=== PATIENT | female | born 1960 | race Caucasian/White ===

== ENCOUNTER 2017-12-06 15:45 | Inpatient (IN) ==
[2017-12-06] MEDS ORDERED: Sod Chloride 0.9% Inj 1,000 ML IV.SIG ONE (17:27)
--- NOTE | 2017-12-06 18:02 | CT ---
EXAM DATE: 12/06/2017 5:55 PM EDT AGE/SEX: 57 years / Female INDICATIONS: Diffuse abdomen pain with nausea and vomiting for five days. CLINICAL DATA: This is the patient's initial encounter. Patient reports that signs and symptoms have been present for 4 - 6 days and indicates a pain score of 7/10. MEDICAL/SURGICAL HISTORY: Carcinoma, breast. Hypertension. Hysterectomy. bladder surgery RADIATION DOSE: 6.84 CTDI (mGy) COMPARISON: [facility] [place], CT ABDOMEN & PELVIS W/O CONTRAST, 12/01/2017. . TECHNIQUE: Multiple contiguous axial images were obtained through the abdomen. Images were obtained using multiple row detector helical technique. Using automated exposure control and adjustment of the mA and/or kV according to patient size, radiation dose was kept as low as reasonably achievable to o btain optimal diagnostic quality images. DICOM format image data is available electronically for rev iew and comparison. FINDINGS: Free intraperitoneal air with ascites. There are scattered diverticuli in the sigmoid colon. There is a large collection of air mesentery in the pelvis. Most likely source is probably in the pelvis. Liver, spleen, pancreas and adrenals unremarkable. Right left kidneys unremarkable There is no adenopathy Pelvis again seen is a large collection of free air in the root of the mesentery. Multiple diverticul i are present in the sigmoid colon with acute diverticulitis. Bladder and adnexal regions are unremarkable. CONCLUSION: 1. Significant free intraperitoneal air collected under the diaphragm and in the root of mesentery. Most likely source is pelvis, root of the mesentery with associated diverticulitis Electronically signed by: Mandeep Espana MD 12/06/2017 6:01 PM EDT
[2017-12-06 18:03] LABS: Baso % (Auto) 0.5 % (0.0-2.0); Eos # (Auto) 0.1 th/mm3 (0.0-0.4); Eos % (Auto) 0.7 % (0.0-4.0); Hematocrit 41.8 % (35.0-46.0); Hemoglobin 13.8 gm/dL (11.6-15.3); Lymph % (Auto) 9.7 % (9.0-44.0); Mean Corpuscular HGB Conc 33.1 % (32.0-36.0); Mean Corpuscular Hemoglobin 28.5 pg (27.0-34.0); Mean Corpuscular Volume 86.1 fL (80.0-100.0); Mean Platelet Volume 7.7 fL (7.0-11.0); Mono # (Auto) 1.1 th/mm3 (0.0-0.9); Mono % (Auto) 10.3 % (0.0-8.0); Neut # (Auto) 8.5 th/mm3 (1.8-7.7); Neut % (Auto) 78.8 % (16.0-70.0); Platelet Count 280 th/mm3 (150-450); Red Blood Count 4.85 mil/mm3 (4.00-5.30); Red Cell Distribution Width 14.1 % (11.6-17.2); White Blood Count 10.8 th/mm3 (4.0-11.0)
--- NOTE | 2017-12-06 18:03 | ED ---
HPI General Chief complaint: Nausea/Vomiting/Diarrhea Stated complaint: Vomitting/abd pain Time Seen by Provider: 12/06/17 17:18 Source: patient and family Mode of arrival: ambulatory Limitations: no limitations History of Present Illness HPI Narrative: 57-year-old female that presents to the ED for evaluation of abdominal pain, nausea and vomit. Patient is known to me. I evaluated this patient on Thursday. On Thursday I diagnosed her with diverticulitis. Appeared to be mild. Patient was better with medications given in start antibiotics including Cipro and Flagyl. She was also given pain medications and antiemetics. Per patient she was doing fine until Thursday she started having more nausea and vomit. She has not been able to keep anything down since Thursday. She went to see her doctor who gave her Phenergan but she was not able able to keep this down. She has been having diarrhea. She states that she has had some abdominal pain. Per patient the pain is 7 out of 10. Per patient she is more concerned about the nausea and vomit. She cannot even keep any of her antibiotics for the past 2 days. Per patient her doctor also increased the Flagyl to 3 times a day. Related Data Previous Rx's Medication Instructions Recorded ciprofloxacin HCl [Cipro] 500 mg PO BID 14 Days #28 tab 12/01/17 metronidazole [Flagyl] 500 mg PO BID 14 Days #28 tab 12/01/17 ondansetron HCl [Zofran] 4 mg PO Q6H PRN #20 tab 12/01/17 Allergies Allergy/AdvReac Type Severity Reaction Status Date / Time Iodinated Contrast- Oral and Allergy Anaphylaxis Verified 12/01/17 11:27 IV Dye [Contrast] Review of Systems ROS Unobtainable All other systems reviewed negative except as stated in HPI [facility] Social History Social History Substance History: No History of Abuse Second Hand Smoke Exposure: No Smoking Status: Former smoker Tobacco Type: Cigarettes How Often Do You Have a Drink Containing Alcohol: Monthly or less Recent Travel in [facility] within the Last 8 Weeks: No Recent Out of Country Travel within the Last 8 Weeks: No Immunization History Tetanus Immunization: <5 Years Hx Influenza Vaccine This Season: Yes Exam Narrative Exam Narrative: GENERAL: Well-appearing SKIN: Focused skin assessment warm/dry. HEAD: Atraumatic. Normocephalic. EYES: Pupils equal and round. No scleral icterus. No injection or drainage. ENT: No nasal bleeding or discharge. Mucous membranes pink and moist. NECK: Trachea midline. No JVD. CARDIOVASCULAR: Regular rate and rhythm. No murmur appreciated. RESPIRATORY: No accessory muscle use. Clear to auscultation. Breath sounds equal bilaterally. GASTROINTESTINAL: Abdomen soft, very tender to touch in the lower abdomen, nondistended. Hepatic and splenic margins not palpable. MUSCULOSKELETAL: No obvious deformities. No clubbing. No cyanosis. No edema. Full range of motion of the upper and lower extremities bilaterally. 2+ pulses bilaterally. NEUROLOGICAL: Awake and alert. No obvious cranial nerve deficits. Motor grossly within normal limits. Normal speech. PSYCHIATRIC: Appropriate mood and affect; insight and judgment normal. Course Initial Documented Vital Signs Temperature 99.1 F 12/06/17 16:07 Pulse Rate 95 H 12/06/17 16:07 Respiratory Rate 17 12/06/17 16:07 Blood Pressure 146/61 H 12/06/17 16:07 Pulse Oximetry 96 12/06/17 16:07 Last Documented Vital Signs Temperature 99.1 F 12/06/17 16:07 Pulse Rate 102 H 12/06/17 17:27 Respiratory Rate 18 12/06/17 16:10 Blood Pressure 129/72 12/06/17 16:10 Pulse Oximetry 97 12/06/17 17:27 Medical Decision Making DOYLE Attestation DOYLE supervised visit: Yes Attestation: I, Dr. Johnson, have reviewed the advance practice practitioner's documentation and am in agreement, met with the patient face to face, made the diagnosis, and the medical decision making was done by me. *My assessment and Findings: Patient returns with worsening abdominal pain. Extensive workup was done. CT scan shows large collection of air consistent with perforation. Suspicion is perforated diverticulitis. Patient will be admitted and given IV antibiotics and general surgery has been consulted. MDM Narrative Medical decision making narrative: 57-year-old female that presents to the ED for evaluation of abdominal pain. Patient was properly examined and was found to have signs and symptoms concerning for acute abdominal pain. Patient was seen by me and is known by me from her previous admission. Labs and imaging show what appears to be perforated bowel. Her blood work does not show any white blood cell count elevation and her CMP appears to be intact. At this time case was discussed with Dr. Dowling who stated that he will come and evaluate the patient. He came and evaluated the patient and recommends IV antibiotics admission to medicine. This was ordered by me. Case discussed with Dr. Mcdowell who agrees to admission. My attending Dr. Smith was made aware of all findings and agrees with admission. Differential Diagnosis Differential Diagnosis: Perforated bowel versus diverticulitis versus abscess Medical Records Medical records reviewed: Yes I reviewed the patient's medical records. Lab Data Lab results reviewed: Yes I reviewed the patient's lab results. Result diagrams: 12/06/17 17:40 12/06/17 17:40 Lab Results 12/06/17 12/06/17 12/06/17 Range/Units 17:40 17:40 17:40 WBC 10.8 (4.0-11.0) th/mm3 RBC 4.85 (4.00-5.30) mil/mm3 Hgb 13.8 (11.6-15.3) gm/dL Hct 41.8 (35.0-46.0) % MCV 86.1 (80.0-100.0) fL MCH 28.5 (27.0-34.0) pg MCHC 33.1 (32.0-36.0) % RDW 14.1 (11.6-17.2) % Plt Count 280 D (150-450) th/mm3 MPV 7.7 (7.0-11.0) fL Prelim Diff (Auto) Slide review pending Neut % (Auto) 78.8 H (16.0-70.0) % Lymph % (Auto) 9.7 (9.0-44.0) % Morrow % (Auto) 10.3 H (0.0-8.0) % Eos % (Auto) 0.7 (0.0-4.0) % Baso % (Auto) 0.5 (0.0-2.0) % Neut # (Auto) 8.5 H (1.8-7.7) th/mm3 Lymph # (Auto) 1.0 (1.0-4.8) th/mm3 Morrow # (Auto) 1.1 H (0.0-0.9) th/mm3 Eos # (Auto) 0.1 (0.0-0.4) th/mm3 Baso # (Auto) 0.0 (0.0-0.2) th/mm3 WBC Differential . Diff Scan Auto diff confirmed Differential Comment . Sodium 138 (136-145) meq/L Potassium 3.8 (3.5-5.1) meq/L Chloride 100 (98-107) meq/L Carbon Dioxide 28.6 (21.0-32.0) meq/L Anion Gap 9 (5-15) meq/L BUN 19 H (7-18) mg/dL Creatinine 0.75 (0.50-1.00) mg/dL Estimated GFR 79 L (>89) mL/min Random Glucose 105 (74-106) mg/dL Lactic Acid 1.3 (0.4-2.0) mmol/L Calcium 9.1 (8.5-10.1) mg/dL Total Bilirubin 0.6 (0.2-1.0) mg/dL AST 14 L (15-37) U/L ALT 17 (10-53) U/L Alkaline Phosphatase 79 (45-117) U/L Total Protein 6.9 (6.4-8.2) g/dL Albumin 2.9 L (3.4-5.0) g/dL Blood Type Blood Type Recheck Antibody Screen 12/06/17 Range/Units 18:25 WBC (4.0-11.0) th/mm3 RBC (4.00-5.30) mil/mm3 Hgb (11.6-15.3) gm/dL Hct (35.0-46.0) % MCV (80.0-100.0) fL MCH (27.0-34.0) pg MCHC (32.0-36.0) % RDW (11.6-17.2) % Plt Count (150-450) th/mm3 MPV (7.0-11.0) fL Prelim Diff (Auto) Neut % (Auto) (16.0-70.0) % Lymph % (Auto) (9.0-44.0) % Morrow % (Auto) (0.0-8.0) % Eos % (Auto) (0.0-4.0) % Baso % (Auto) (0.0-2.0) % Neut # (Auto) (1.8-7.7) th/mm3 Lymph # (Auto) (1.0-4.8) th/mm3 Morrow # (Auto) (0.0-0.9) th/mm3 Eos # (Auto) (0.0-0.4) th/mm3 Baso # (Auto) (0.0-0.2) th/mm3 WBC Differential Diff Scan Differential Comment Sodium (136-145) meq/L Potassium (3.5-5.1) meq/L Chloride (98-107) meq/L Carbon Dioxide (21.0-32.0) meq/L Anion Gap (5-15) meq/L BUN (7-18) mg/dL Creatinine (0.50-1.00) mg/dL Estimated GFR (>89) mL/min Random Glucose (74-106) mg/dL Lactic Acid (0.4-2.0) mmol/L Calcium (8.5-10.1) mg/dL Total Bilirubin (0.2-1.0) mg/dL AST (15-37) U/L ALT (10-53) U/L Alkaline Phosphatase (45-117) U/L Total Protein (6.4-8.2) g/dL Albumin (3.4-5.0) g/dL Blood Type A Positive Blood Type Recheck Required Antibody Screen Negative Imaging Data Attestation: I personally reviewed and interpreted this imaging study as follows : Radiologist's impression: Abdomen/Pelvis CT 12/06/17 17:29 CONCLUSION: 1. Significant free intraperitoneal air collected under the diaphragm and in the root of mesentery. Most likely source is pelvis, root of the mesentery with associated diverticulitis Discharge Plan Discharge Disposition Patient Disposition: 30 Still Patient Discharge Details Diagnosis: Perforated bowel, Diverticulitis Physicians Team ED Provider: Chino Johnson ED Midlevel Provider: Phillip Angulo Primary Care Provider: UNKNOWN, Attending Provider: Ferny Salgado Other Providers: Tom Crystal Discharge Interventions Interventions: Vital Signs Last Done: 12/06/17 16:10 Status ED Status: Admitted Patient
[2017-12-06] MEDS ORDERED: Ampicillin/Sulbactam Inj 3 GM in Sodium Chloride 0.9% Inj 100 ML IV.SIG ONE (18:09)
[2017-12-06] MEDS ORDERED: HYDROmorphone PF Inj 2 MG/ML Vial IV.PUSH ONE (18:16)
[2017-12-06 18:22] LABS: Albumin 2.9 g/dL (3.4-5.0); Anion Gap 9 meq/L (5-15); Aspartate Aminotransferase 14 U/L (15-37); Blood Urea Nitrogen 19 mg/dL (7-18); Calcium 9.1 mg/dL (8.5-10.1); Carbon Dioxide 28.6 meq/L (21.0-32.0); Chloride 100 meq/L (98-107); Glomerular Filtration Rate 79 mL/min (>89); Glucose,Random 105 mg/dL (74-106); Potassium 3.8 meq/L (3.5-5.1); Sodium 138 meq/L (136-145)
[2017-12-06 18:23] LABS: Alanine Aminotransferase 17 U/L (10-53)
[2017-12-06 18:26] LABS: Alkaline Phosphatase 79 U/L (45-117); Total Protein 6.9 g/dL (6.4-8.2)
[2017-12-06] MEDS ORDERED: Piperacil/Tazo 3.375 GM Premix 50 ML IV.SIG ONE (20:12)
[2017-12-06] MEDS ORDERED: HYDROmorphone PF Inj 2 MG/ML Vial IV.PUSH PRN (20:35)
[2017-12-06] MEDS: Sod Chloride 0.9% Inj 1,000 ML IV.CONT SCH (22:55)
--- NOTE | 2017-12-06 23:24 | MB ---
cc: Tom Crystal MD DATE: 12/06/2017 DATE OF EVALUATION: 12/06/2017 HISTORY OF PRESENT ILLNESS: This is a 57-year-old female who presents to the emergency room with a 5-day history of abdominal pain. The patient states the pain started in her lower abdomen. She presented to [place] ER 5 days prior where evaluation revealed diverticulitis. She was started on oral antibiotics and sent home. She states that she was having difficulty keeping down antibiotics. On Thursday, symptoms worsened with emesis and she was unable to keep down fluids or medication. She presented back to the emergency room for reevaluation. On workup, noncontrasted CT of the abdomen and pelvis revealed ascites with free air. The patient states she has had a temperature of 101 day prior to presentation. She has been having liquid bowel movements. No chest pains or shortness of breath. She states the pain is better now. PAST MEDICAL HISTORY: Significant for hypertension. PAST SURGICAL HISTORY: 1. Significant for breast surgery. 2. Hysterectomy. 3. Bladder sling. MEDICATIONS: The patient is on medications for blood pressure. SOCIAL HISTORY: She does not smoke. FAMILY HISTORY: Noncontributory. REVIEW OF SYSTEMS: Significant for the above. All other 10-point review negative. PHYSICAL EXAMINATION: GENERAL: She is lying in bed in no acute distress. HEENT: Her pupils are equal and reactive. NECK: Trachea is midline. LUNGS: Clear. CARDIOVASCULAR: Regular. GASTROINTESTINAL: Abdomen soft, mild distention. EXTREMITIES: Positive tenderness in the lower abdomen, mild right lower and left lower quadrant. MUSCULOSKELETAL: No deformities. NEUROLOGIC: Nonfocal. LABORATORY DATA: The patient's white count is 10.8 with neutrophils of 78.8. CAT scan of abdomen and pelvis reviewed. ASSESSMENT: This is a patient with likely perforated diverticulitis. The patient is being admitted for IV antibiotics. The patient's symptoms appear to be localized. Will monitor closely. If patient deteriorates, she will require laparoscopy with a diverting ileostomy versus a laparotomy with sigmoid resection. This was explained to the patient and her family. Risks and benefits were explained. They verbalized understanding and agreed with the plan of care. Tom Crystal MD JLS/nia/david , 08:18 PM , 08:27 PM
[2017-12-07] MEDS: Piperacil/Tazo 3.375 GM Premix 50 ML IV.SIG SCH ×5 (04:59→21:31)
[2017-12-07 07:58] LABS: Baso % (Auto) 0.5 % (0.0-2.0); Eos # (Auto) 0.1 th/mm3 (0.0-0.4); Eos % (Auto) 1.2 % (0.0-4.0); Hemoglobin 12.7 gm/dL (11.6-15.3); Lymph # (Auto) 1.2 th/mm3 (1.0-4.8); Lymph % (Auto) 14.2 % (9.0-44.0); Mean Corpuscular HGB Conc 33.4 % (32.0-36.0); Mean Corpuscular Hemoglobin 29.1 pg (27.0-34.0); Mean Corpuscular Volume 87.2 fL (80.0-100.0); Mean Platelet Volume 7.5 fL (7.0-11.0); Mono # (Auto) 0.9 th/mm3 (0.0-0.9); Neut % (Auto) 73.1 % (16.0-70.0); Platelet Count 261 th/mm3 (150-450); Red Blood Count 4.36 mil/mm3 (4.00-5.30); Red Cell Distribution Width 14.3 % (11.6-17.2); White Blood Count 8.2 th/mm3 (4.0-11.0)
--- NOTE | 2017-12-07 08:17 | P.HPIM ---
History of Present Illness Primary Care Physician: Dr. Richie Clifton Chief Complaint: Nausea/vomiting, abd pain History of Present Illness: Mrs. bethea is a 57 y/o female with HTN, hx of breast cancer, and hx of melanoma. She presented to the ED at [facility] on 12/06/17 with a 5-day history of abdominal pain. The patient states that the pain started in her lower abdomen initially with associated vomiting. She presented to [place] ED on 12/01/[address] Abd/pelvis which revealed acute sigmoid diverticulitis, no perforation or abscess, and no obstruction. Pt was started on oral antibiotics with Cipro and Flagyl BID x 14 days and discharged to home. She states that she was having difficulty keeping down antibiotics. On Thursday, symptoms worsened and she had increased emesis and she was unable to keep down fluids or medication. She presented back to the emergency room on 12/06/17 for re-evaluation. In the ED she had a noncontrasted CT abd/pelvis which revealed significant free intraperitoneal air collected under the diaphragm and in the root of mesentery. The patient reported a fever of 101 on the day prior to presentation in the ED. She reports that she has been having liquid bowel movements. No chest pains or shortness of breath. Pt was started on Zosyn in the ED. General Surgery evaluated the pt in the ED last night and they are recommending continued supportive care and IV antibiotics and monitoring her clinical status closely. Past Medical Hx Diverticulitis Hypertension Hx of breast cancer in 2011, BRCA gene positive, s/p surgery and XRT, followed with Dr. Lanier and Dr. Wilson Hx of melanoma Past Surgical Hx Right breast partial mastectomy in 2011 Left breast lumpectomy in 2013 which was benign TREE with BSO Bladder sling Melanoma removal Family Hx Noncontributory Social Hx Denies any tobacco or illicit drug use Occasional social alcohol use - Diagnosis (1) Perforated bowel (2) Diverticulitis (3) HTN (hypertension) Inpatient Certification: I certify that the inpatient services were ordered in accordance with Medicare regulations governing the order. This includes certification that hospital inpatient services are reasonable and necessary and in the case of services not specified as inpatient-only under 42 CFR 419.22(n), that they are appropriately provided as inpatient services in accordance to with the 2-midnight benchmark under 43 CFR 412.3(e) Estimated Total Length of Stay (Days): 3 Plans for Post Hospital Care: Home Review of Systems All other systems reviewed negative except as stated in HPI Constitutional: Reports chills, Reports fever(s) Cardiovascular: Denies chest pain, Denies shortness of breath Gastrointestinal: Reports abdominal pain, Reports loose stools, Reports nausea, Reports vomiting PMFSH - History History Provided By: Patient - Medical History Medical History: Medical History (Last Reviewed 12/06/17 @ 17:25 by Devyn Buck) Arthritis History of breast cancer History of hysterectomy Hypertension Hypertriglyceridemia Melanoma - Surgical History Surgical History: Surgical History (Last Reviewed 12/06/17 @ 17:25 by Devyn Buck) History of bladder surgery - Tobacco History Second Hand Smoke Exposure: No Tobacco Use In Past 30 Days: No Smoking Status: Former smoker Tobacco Type: Cigarettes - Alcohol History How Often Do You Have a Drink Containing Alcohol: Monthly or less - Substance Use History Substance History: No History of Abuse - Travel History Recent Travel in the [place] Within the Last 8 Weeks: No Recent Travel Out of the Country Within the Last 8 Weeks: No - Immunization History Tetanus Immunization: Never Vaccinated Hx Influenza Vaccine This Season: Yes Medications and Allergies Allergies Allergy/AdvReac Type Severity Reaction Status Date / Time Iodinated Contrast- Oral and Allergy Anaphylaxis Verified 12/01/17 11:27 IV Dye [Contrast] Home Medications Medication Instructions Recorded Confirmed Type atenolol 50 mg PO DAILY 12/07/17 12/07/17 History hydrochlorothiazide 25 mg PO DAILY 12/07/17 12/07/17 History Active Medications: Active Medications Atenolol (Tenormin) 50 mg PO DAILY [facility] Piperacillin/Tazobactam/Dextrose (Zosyn 3.375 Gm Premix) 50 mls @ 100 mls/hr IV.SIG Q6H [facility] Last Infusion: 12/07/17 07:33 Dose: Infused Sodium Chloride (Ns Inj) 1,000 mls @ 84 mls/hr IV.CONT .[id number] [facility] Last Admin: 12/06/17 22:55 Dose: 84 mls/hr Ketorolac Tromethamine (Toradol Inj) 15 mg IV.PUSH Q6H PRN PRN Reason: PAIN SCALE 1 TO 10 Stop: 12/12/17 00:46 Ondansetron HCl (Zofran Odt) 4 mg PO Q4H PRN PRN Reason: NAUSEA OR VOMITING Last Admin: 12/07/17 02:50 Dose: 4 mg Exam Vital signs: Vital Signs 12/06/17 16:07 12/06/17 16:10 12/06/17 17:27 Temperature 99.1 F Pulse Rate 95 H 101 H 102 H Respiratory Rate 17 18 Blood Pressure 146/61 H 129/72 Pulse Oximetry 96 97 97 12/06/17 22:30 12/06/17 23:10 12/06/17 23:11 Temperature 97.9 F Pulse Rate 76 82 74 Respiratory Rate 15 16 Blood Pressure 128/58 L 127/62 Pulse Oximetry 94 L 12/07/17 00:11 12/07/17 04:00 Temperature 98 F Pulse Rate 78 76 Respiratory Rate 18 Blood Pressure 123/79 Pulse Oximetry 94 L Intake & Output 12/06/17 12/07/17 12/07/17 18:59 06:59 18:59 Intake Total 1250 / 1250 50 / 50 Balance 1250 / 1250 50 / 50 Weight 74.843 kg 74 kg Intake: IV 1250 / 1250 50 / 50 Unasyn Inj 3 GM In NS Inj 100 100 / 100 ML @ 200 mls/hr IV.SIG ONCE ONE Rx#:[id number] Zosyn 3.375 GM Premix 50 ML @ 50 / 50 50 / 50 100 mls/hr IV.SIG Q6H HATTIE Rx#: [id number] Flagyl 500 MG Inj 100 ML @ 100 100 / 100 mls/hr IV.SIG ONCE ONE Rx#: [id number] Other: # Voids 1 # Bowel Movements 0 Weight On Admission 74 kg Narrative: GENERAL: NAD, AAOx3 SKIN: Warm and dry. HEENT: Atraumatic. Normocephalic. Pupils equal and round. No scleral icterus. No injection or drainage. No nasal bleeding or discharge. Mucous membranes pink and moist. NECK: Trachea midline. No JVD. CARDIO: Regular RESP: No accessory muscle use. Clear to auscultation. Breath sounds equal bilaterally. ABD: Diminished BS, soft, distended, mild lower abdominal tenderness. EXT: Extremities without clubbing, cyanosis, or edema. No obvious deformities. NEURO: Awake and alert. No obvious cranial nerve deficits. Motor grossly within normal limits. Five out of 5 muscle strength in the arms and legs. Normal speech. PSYCH: Appropriate mood and affect; insight and judgment normal. Results - Labs CBC & Chem 7: 12/10/17 05:21 12/10/17 05:21 Labs: Short CBC 12/06/17 12/07/17 Range/Units 17:40 07:00 WBC 10.8 8.2 (4.0-11.0) th/mm3 Hgb 13.8 12.7 (11.6-15.3) gm/dL Hct 41.8 38.0 (35.0-46.0) % Plt Count 280 D 261 (150-450) th/mm3 BMP 12/06/17 17:40 Sodium 138 Potassium 3.8 Chloride 100 Carbon Dioxide 28.6 BUN 19 H Creatinine 0.75 Calcium 9.1 Liver Function 12/06/17 Range/Units 17:40 Total Bilirubin 0.6 (0.2-1.0) mg/dL AST 14 L (15-37) U/L ALT 17 (10-53) U/L Alkaline Phosphatase 79 (45-117) U/L Albumin 2.9 L (3.4-5.0) g/dL - Imaging Impressions Abdomen/Pelvis CT 12/06/17 17:29 CONCLUSION: 1. Significant free intraperitoneal air collected under the diaphragm and in the root of mesentery. Most likely source is pelvis, root of the mesentery with associated diverticulitis Caprini VTE Risk Assessment Caprini VTE Risk Assessment: Moderate/High Risk (score >= 2) Caprini Risk Assessment Model: Point Value = 1 Point Value = 2 Point Value = 3 Point Value = 5 Age 41-60 Minor surgery BMI > 25 kg/m2 Swollen legs Varicose veins or History of unexplained or recurrent spontaneous Oral contraceptives or hormone replacement Sepsis (< 1 month) Serious lung disease, including pneumonia (< 1 month) Abnormal pulmonary function Acute myocardial infarction Congestive heart failure (< 1 month) History of inflammatory bowel disease Medical patient at bed rest Age 61-74 Arthroscopic surgery Major open surgery (> 45 min) Laparoscopic surgery (> 45 min) Malignancy Confined to bed (> 72 hours) Immobilizing plaster cast Central venous access Age >= 75 History of VTE Family history of VTE Factor V Leiden Prothrombin [id number] Lupus anticoagulant Anticardiolipin antibodies Elevated serum homocysteine Heparin-induced thrombocytopenia Other congenital or acquired thrombophilia Stroke (< 1 month) Elective arthroplasty Hip, pelvis, or leg fracture Acute spinal cord injury (< 1 month) Prophylaxis Regimen: Total Risk Factor Score Risk Level Prophylaxis Regimen 0-1 Low Early ambulation 2 Moderate Order ONE of the following: *Sequential Compression Device (SCD) *Heparin 5000 units SQ BID 3-4 Higher Order ONE of the following medications: *Heparin 5000 units SQ TID *Enoxaparin/Lovenox 40 mg SQ daily (WT < 150 kg, CrCl > 30 mL/min) *Enoxaparin/Lovenox 30 mg SQ daily (WT < 150 kg, CrCl > 10-29 mL/min) *Enoxaparin/Lovenox 30 mg SQ BID (WT < 150 kg, CrCl > 30 mL/min) AND/OR *Sequential Compression Device (SCD) 5 or more Highest Order ONE of the following medications: *Heparin 5000 units SQ TID (Preferred with Epidurals) *Enoxaparin/Lovenox 40 mg SQ daily (WT < 150 kg, CrCl > 30 mL/min) *Enoxaparin/Lovenox 30 mg SQ daily (WT < 150 kg, CrCl > 10-29 mL/min) *Enoxaparin/Lovenox 30 mg SQ BID (WT < 150 kg, CrCl > 30 mL/min) AND *Sequential Compression Device (SCD) Assessment and Plan - Assessment (1) Perforated bowel Code(s): K63.1 - Perforation of intestine (nontraumatic) Status: Acute Plan: Perforated bowel Diverticulitis - Pt is a 57 y/o female with HTN, hx of breast cancer, and hx of melanoma. - She presented to the ED at [facility] on 12/06/17 with a 5-day history of abdominal pain, N/V. She initially presented to [place] ED on 12/01/[address] Abd/ pelvis which revealed acute sigmoid diverticulitis, no perforation or abscess, and no obstruction. Pt was started on oral antibiotics with Cipro and Flagyl BID x 14 days and discharged to home. She states that she was having difficulty keeping down antibiotics. On Thursday, symptoms worsened and she had increased emesis and she was unable to keep down fluids or medication. She presented back to the emergency room on 12/06/17 for re-evaluation. - Noncontrasted CT abd/pelvis (12/06) --> significant free intraperitoneal air collected under the diaphragm and in the root of mesentery. - Pt has had intermittent fevers and chills prior to admission. - Pt has been having liquid bowel movements. - Blood cultures drawn in the ED are pending. - Pt was started on Zosyn in the ED. - General Surgery evaluated the pt in the ED last night and they are recommending continued supportive care and IV antibiotics and monitoring her clinical status closely. - Zofran PRN and Reglan PRN - NPO - Cont. IVF - Supportive care HTN - Home meds continued, Atenolol - Vasotec PRN (2) Diverticulitis Code(s): K57.92 - Diverticulitis of intestine, part unspecified, without perforation or abscess without bleeding Status: Acute (3) HTN (hypertension) Code(s): I10 - Essential (primary) hypertension Status: Chronic - Attending Attestation Patient examined. Assessment and plan formulated with Debbi Lees PA-C. I agree with the above. H&P: Quality - VTE Deep Vein Thrombosis/Pulmonary Embolism Present on Admission: No
[2017-12-07 08:19] LABS: Anion Gap 9 meq/L (5-15); Blood Urea Nitrogen 18 mg/dL (7-18); Calcium 8.1 mg/dL (8.5-10.1); Carbon Dioxide 25.5 meq/L (21.0-32.0); Chloride 106 meq/L (98-107); Glomerular Filtration Rate Greater Than 89 mL/min (>89); Glucose,Random 93 mg/dL (74-106); Potassium 3.8 meq/L (3.5-5.1); Sodium 140 meq/L (136-145)
[2017-12-07 08:44] LABS: Eosinophils 2 % (0-4); Lymphocytes 10 % (9-44); Metamyelocytes 1 % (0-1); Monocytes 9 % (0-8)
[2017-12-07 08:46] LABS: Platelet Estimate Normal (Normal); Platelet Morphology Normal (Normal)
[2017-12-07] MEDS: Atenolol 50 MG Tablet PO SCH (08:46)
[2017-12-07] MEDS: Sod Chloride 0.9% Inj 1,000 ML IV.CONT SCH ×2 (08:48→18:02)
--- NOTE | 2017-12-07 12:18 | P.PNGS ---
<Mariela Carter - Last Filed: 12/07/17 12:15> Subjective Interval history: Felling better today Pain is less but complains of more nausea Not passing much gas Physical Exam Vital signs: Vital Signs 12/06/17 16:07 12/06/17 16:10 12/06/17 17:27 Temperature 99.1 F Pulse Rate 95 H 101 H 102 H Respiratory Rate 17 18 Blood Pressure 146/61 H 129/72 Pulse Oximetry 96 97 97 12/06/17 22:30 12/06/17 23:10 12/06/17 23:11 Temperature 97.9 F Pulse Rate 76 82 74 Respiratory Rate 15 16 Blood Pressure 128/58 L 127/62 Pulse Oximetry 94 L 12/07/17 00:11 12/07/17 04:00 12/07/17 08:00 Temperature 98 F 98.4 F Pulse Rate 78 76 75 Respiratory Rate 18 18 Blood Pressure 123/79 127/68 Pulse Oximetry 94 L 96 Intake & Output 12/06/17 12/07/17 12/07/17 18:59 06:59 18:59 Intake Total 1250 / 1250 1050 / 1050 Balance 1250 / 1250 1050 / 1050 Weight 74.843 kg 74 kg Intake: IV 1250 / 1250 1050 / 1050 NS Inj 1,000 ML @ 84 mls/hr IV. 1000 / 1000 CONT .[id number] [facility] Rx#:[id number] Unasyn Inj 3 GM In NS Inj 100 100 / 100 ML @ 200 mls/hr IV.SIG ONCE ONE Rx#:[id number] Zosyn 3.375 GM Premix 50 ML @ 50 / 50 50 / 50 100 mls/hr IV.SIG Q6H [facility] Rx#: [id number] Flagyl 500 MG Inj 100 ML @ 100 100 / 100 mls/hr IV.SIG ONCE ONE Rx#: [id number] Other: # Voids 1 # Bowel Movements 0 Weight On Admission 74 kg - Constitutional no acute distress - Routine Respiratory Exam Present: CTA bilaterally - Routine Cardiovascular Exam Present: RRR - Routine Abdominal Exam Present: tenderness (mild tenderness with palpation to LLQ) - Additional findings Additional findings: Laboratory Results - last 12 hr 12/07/17 12/07/17 07:00 07:00 WBC 8.2 RBC 4.36 Hgb 12.7 Hct 38.0 MCV 87.2 MCH 29.1 MCHC 33.4 RDW 14.3 Plt Count 261 MPV 7.5 Prelim Diff (Auto) Slide review pending Neut % (Auto) 73.1 H Lymph % (Auto) 14.2 [place] % (Auto) 11.0 H Eos % (Auto) 1.2 Baso % (Auto) 0.5 Neut # (Auto) 6.0 Lymph # (Auto) 1.2 [place] # (Auto) 0.9 Eos # (Auto) 0.1 Baso # (Auto) 0.0 WBC Differential Manual diff final Seg Neuts % (Manual) 62 Band Neuts % (Manual) 16 H Lymphocytes % (Manual) 10 Monocytes % (Manual) 9 H Eosinophils % (Manual) 2 Metamyelocytes % (Man) 1 Abs Neuts (Manual) 6.5 Differential Comment . Platelet Estimate Normal Platelet Morphology Normal Sodium 140 Potassium 3.8 Chloride 106 Carbon Dioxide 25.5 Anion Gap 9 BUN 18 Creatinine 0.52 Estimated GFR Greater than 89 Random Glucose 93 Calcium 8.1 L D Assessment and Plan - Assessment (1) Perforated bowel Code(s): K63.1 - Perforation of intestine (nontraumatic) Status: Acute - Plan Change Reglan to 10mg IVP Q6H for nausea Remain NPO for now Continue to monitor course Encourage ambulation Code Status: Full - Attending Attestation The exam, history, and the medical decision-making described in the above note were completed with the assistance of the mid-level provider. I reviewed and agree with the findings presented. I attest that I had a [id number] encounter with the patient on the same day, and personally performed and documented my assessment and findings in the medical record. <Tom Crystal - Last Filed: 12/25/17 08:36> Physical Exam - Urinary Catheter Management 1 Cath placed during this visit: yes Reason for continuing: Hourly intake/output Insertion date: 12/12/17 Assessment and Plan - Assessment (1) Diverticulitis Code(s): K57.92 - Diverticulitis of intestine, part unspecified, without perforation or abscess without bleeding Status: Acute - Plan Discharge Planning: The exam, history, and the medical decision-making described in the above note were completed with the assistance of the mid-level provider. I reviewed and agree with the findings presented. I attest that I had a [id number]-[id number] encounter with the patient on the same day, and personally performed and documented my assessment and findings in the medical record.
[2017-12-07] MEDS: Ketorolac Inj 30 MG/ML (IVP) Vial IV.PUSH PRN ×2 (12:53→18:57)
--- NOTE | 2017-12-07 22:03 | ECG ---
Date Performed: 12/06/2017 Time Performed: 19:29:08 PTAGE: 57 years EKG: Sinus rhythm NORMAL ECG NO PREVIOUS TRACING DOCTOR: Markus Jacob Interpretating Date/Time 12/07/2017 22:01:05
[2017-12-08] MEDS: Ketorolac Inj 30 MG/ML (IVP) Vial IV.PUSH PRN ×3 (01:07→16:27)
[2017-12-08] MEDS: Piperacil/Tazo 3.375 GM Premix 50 ML IV.SIG SCH ×4 (03:52→21:10)
[2017-12-08] MEDS: Sod Chloride 0.9% Inj 1,000 ML IV.CONT SCH ×2 (03:54→08:57)
[2017-12-08 05:16] LABS: Baso # (Auto) 0.1 th/mm3 (0.0-0.2); Baso % (Auto) 0.5 % (0.0-2.0); Eos # (Auto) 0.2 th/mm3 (0.0-0.4); Eos % (Auto) 1.6 % (0.0-4.0); Hematocrit 35.3 % (35.0-46.0); Hemoglobin 11.4 gm/dL (11.6-15.3); Lymph # (Auto) 1.4 th/mm3 (1.0-4.8); Lymph % (Auto) 12.2 % (9.0-44.0); Mean Corpuscular HGB Conc 32.3 % (32.0-36.0); Mean Corpuscular Volume 86.5 fL (80.0-100.0); Mean Platelet Volume 7.3 fL (7.0-11.0); Mono # (Auto) 1.4 th/mm3 (0.0-0.9); Mono % (Auto) 11.5 % (0.0-8.0); Neut # (Auto) 8.8 th/mm3 (1.8-7.7); Neut % (Auto) 74.2 % (16.0-70.0); Platelet Count 296 th/mm3 (150-450); Red Blood Count 4.09 mil/mm3 (4.00-5.30); White Blood Count 11.8 th/mm3 (4.0-11.0)
[2017-12-08 05:37] LABS: Anion Gap 12 meq/L (5-15); Blood Urea Nitrogen 21 mg/dL (7-18); Carbon Dioxide 22.5 meq/L (21.0-32.0); Chloride 107 meq/L (98-107); Glomerular Filtration Rate Greater Than 89 mL/min (>89); Glucose,Random 68 mg/dL (74-106); Potassium 3.5 meq/L (3.5-5.1); Sodium 141 meq/L (136-145)
[2017-12-08] MEDS: Atenolol 50 MG Tablet PO SCH (08:56)
--- NOTE | 2017-12-08 10:01 | P.PNIM ---
Subjective Interval history: Pt overall is feeling better today She passed gas overnight and has continued to have BMs, still dark colored liquid stools She has been afebrile Physical Exam Vital signs: Vital Signs 12/07/17 12:00 12/07/17 16:00 12/07/17 20:00 Temperature 98.2 F 98.6 F 97.7 F Pulse Rate 70 67 75 Respiratory Rate 18 18 18 Blood Pressure 123/69 136/64 139/65 Pulse Oximetry 95 95 97 12/08/17 00:32 12/08/17 08:00 Temperature 99.4 F 98.9 F Pulse Rate 68 84 Respiratory Rate 18 16 Blood Pressure 143/65 H 128/64 Pulse Oximetry 97 94 L Intake & Output 12/07/17 12/08/17 12/08/17 18:59 06:59 18:59 Intake Total 2100 / 2100 1200 / 1200 1000 / 1000 Balance 2100 / 2100 1200 / 1200 1000 / 1000 Weight 74 kg Intake: IV 2100 / 2100 1200 / 1200 1000 / 1000 NS Inj 1,000 ML @ 150 mls/hr IV 2000 / 2000 1000 / 1000 1000 / 1000 .CONT .Q6H40M [facility] Rx#:[id number] Zosyn 3.375 GM Premix 50 ML @ 100 / 100 200 / 200 100 mls/hr IV.SIG Q6H [facility] Rx#: [id number] Other: # Voids 4 3 Narrative: General: NAD, AAOx3 Chest: CTA Cardiac: Regular Abd: +BS, soft mildly distended, nontender Ext: No edema Results - Labs CBC & Chem 7: 12/10/17 05:21 12/10/17 05:21 Laboratory Results - last 24 hr 12/08/17 12/08/17 04:49 04:49 WBC 11.8 H RBC 4.09 Hgb 11.4 L Hct 35.3 MCV 86.5 MCH 28.0 MCHC 32.3 RDW 14.0 Plt Count 296 MPV 7.3 Neut % (Auto) 74.2 H Lymph % (Auto) 12.2 [place] % (Auto) 11.5 H Eos % (Auto) 1.6 Baso % (Auto) 0.5 Neut # (Auto) 8.8 H Lymph # (Auto) 1.4 [place] # (Auto) 1.4 H Eos # (Auto) 0.2 Baso # (Auto) 0.1 WBC Differential . Differential Comment Auto diff final Sodium 141 Potassium 3.5 Chloride 107 Carbon Dioxide 22.5 Anion Gap 12 BUN 21 H Creatinine 0.56 Estimated GFR Greater than 89 Random Glucose 68 L Calcium 8.0 L Microbiology 12/08/17 01:24 Stool Stool Occult Blood ([place]) - Final Hemoccult negative 12/06/17 17:40 Blood - Peripheral Aerobic Blood Culture - Preliminary No growth in 1 day 12/06/17 17:40 Blood - Peripheral Anaerobic Blood Culture - Preliminary No growth in 1 day 12/06/17 17:48 Blood - Peripheral Aerobic Blood Culture - Preliminary No growth in 1 day 12/06/17 17:48 Blood - Peripheral Anaerobic Blood Culture - Preliminary No growth in 1 day - Imaging Abdomen/Pelvis CT 12/06/17 17:29 CONCLUSION: 1. Significant free intraperitoneal air collected under the diaphragm and in the root of mesentery. Most likely source is pelvis, root of the mesentery with associated diverticulitis Assessment and Plan - Assessment (1) Perforated bowel Code(s): K63.1 - Perforation of intestine (nontraumatic) Status: Acute Plan: Perforated bowel Diverticulitis - Pt is a 57 y/o female with HTN, hx of breast cancer, and hx of melanoma. - She presented to the ED at [facility] on 12/06/17 with a 5-day history of abdominal pain, N/V. She initially presented to [place] ED on 12/01/[address] Abd/ pelvis which revealed acute sigmoid diverticulitis, no perforation or abscess, and no obstruction. Pt was started on oral antibiotics with Cipro and Flagyl BID x 14 days and discharged to home. She states that she was having difficulty keeping down antibiotics. On Thursday, symptoms worsened and she had increased emesis and she was unable to keep down fluids or medication. She presented back to the emergency room on 12/06/17 for re-evaluation. - Noncontrasted CT abd/pelvis (12/06) --> significant free intraperitoneal air collected under the diaphragm and in the root of mesentery. - Pt has had intermittent fevers and chills prior to admission. - Pt has been having liquid bowel movements, Hemoccult negative. - Blood cultures (12/06) with NGTD - Pt was started on Zosyn in the ED and this was continued. - General Surgery evaluated the pt in the ED last night and they are recommending continued supportive care and IV antibiotics and monitoring her clinical status closely. - Zofran PRN and Reglan PRN - Change IVF to D5W with KCL @ 100ml/hr - Pt clinically improving today - Encourage ambulation - NPO - Supportive care HTN - Home meds continued, Atenolol - Vasotec PRN (2) Diverticulitis Code(s): K57.92 - Diverticulitis of intestine, part unspecified, without perforation or abscess without bleeding Status: Acute (3) HTN (hypertension) Code(s): I10 - Essential (primary) hypertension Status: Chronic - Attending Attestation Patient examined. Assessment and plan formulated with Debbi Lees PA-C. I agree with the above.
[2017-12-08] MEDS: KCL 10 mEq/D5W/NaCl 0.45% Inj 1,000 ML IV.CONT SCH (13:10)
--- NOTE | 2017-12-08 15:20 | P.PNGS ---
Subjective Interval history: Clinically improving +flatus, +BM though dark colored Pain improving WBC increased to 11.4 Physical Exam Vital signs: Vital Signs 12/07/17 16:00 12/07/17 20:00 12/08/17 00:32 Temperature 98.6 F 97.7 F 99.4 F Pulse Rate 67 75 68 Respiratory Rate 18 18 18 Blood Pressure 136/64 139/65 143/65 H Pulse Oximetry 95 97 97 12/08/17 08:00 12/08/17 12:00 Temperature 98.9 F 97.9 F Pulse Rate 84 73 Respiratory Rate 16 17 Blood Pressure 128/64 134/59 L Pulse Oximetry 94 L 95 Intake & Output 12/07/17 12/08/17 12/08/17 18:59 06:59 18:59 Intake Total 2099 1200 / 1200 2049 Balance 2099 / 2099 1200 / 1200 2049 Weight 74 kg Intake: IV 2099 / 2099 1200 / 1200 2049 NS Inj 1,000 ML @ 150 mls/hr IV 1999 / 1999 1000 / 1000 2000 / 1999 .CONT .Q6H40M [facility] Rx#:[id number] Zosyn 3.375 GM Premix 50 ML @ 100 / 100 200 / 200 50 / 50 100 mls/hr IV.SIG Q6H [facility] Rx#: [id number] Other: # Voids 4 3 Narrative: Laboratory Results - last 24 hr 12/08/17 12/08/17 04:49 04:49 WBC 11.8 H RBC 4.09 Hgb 11.4 L Hct 35.3 MCV 86.5 MCH 28.0 MCHC 32.3 RDW 14.0 Plt Count 296 MPV 7.3 Neut % (Auto) 74.2 H Lymph % (Auto) 12.2 [place] % (Auto) 11.5 H Eos % (Auto) 1.6 Baso % (Auto) 0.5 Neut # (Auto) 8.8 H Lymph # (Auto) 1.4 [place] # (Auto) 1.4 H Eos # (Auto) 0.2 Baso # (Auto) 0.1 WBC Differential . Differential Comment Auto diff final Sodium 141 Potassium 3.5 Chloride 107 Carbon Dioxide 22.5 Anion Gap 12 BUN 21 H Creatinine 0.56 Estimated GFR Greater than 89 Random Glucose 68 L Calcium 8.0 L - Constitutional no acute distress - Routine Respiratory Exam Present: CTA bilaterally - Routine Cardiovascular Exam Present: RRR - Routine Abdominal Exam Present: soft (decreasing distension) Assessment and Plan - Assessment (1) Perforated bowel Code(s): K63.1 - Perforation of intestine (nontraumatic) Status: Acute - Plan Repeat labs in AM, if WBC increasing will get CT Abd/Pelvis with contrast. Patient will need to pre-medicated [address] Keep NPO for now, ok for ice chips Discussed Condition With: Patient - Attending Attestation The exam, history, and the medical decision-making described in the above note were completed with the assistance of the mid-level provider. I reviewed and agree with the findings presented. I attest that I had a [id number] encounter with the patient on the same day, and personally performed and documented my assessment and findings in the medical record.
[2017-12-09] MEDS: Ketorolac Inj 30 MG/ML (IVP) Vial IV.PUSH PRN ×2 (00:33→21:14)
[2017-12-09] MEDS: Piperacil/Tazo 3.375 GM Premix 50 ML IV.SIG SCH ×4 (04:09→21:14)
[2017-12-09] MEDS: KCL 10 mEq/D5W/NaCl 0.45% Inj 1,000 ML IV.CONT SCH ×3 (04:09→18:12)
[2017-12-09 08:49] LABS: Baso # (Auto) 0.1 th/mm3 (0.0-0.2); Baso % (Auto) 0.5 % (0.0-2.0); Eos # (Auto) 0.2 th/mm3 (0.0-0.4); Eos % (Auto) 1.2 % (0.0-4.0); Hematocrit 33.3 % (35.0-46.0); Hemoglobin 10.9 gm/dL (11.6-15.3); Lymph # (Auto) 1.1 th/mm3 (1.0-4.8); Lymph % (Auto) 8.9 % (9.0-44.0); Mean Corpuscular HGB Conc 32.9 % (32.0-36.0); Mean Corpuscular Hemoglobin 28.4 pg (27.0-34.0); Mean Corpuscular Volume 86.3 fL (80.0-100.0); Mean Platelet Volume 7.3 fL (7.0-11.0); Mono # (Auto) 1.1 th/mm3 (0.0-0.9); Neut # (Auto) 10.1 th/mm3 (1.8-7.7); Neut % (Auto) 80.4 % (16.0-70.0); Platelet Count 283 th/mm3 (150-450); Red Blood Count 3.86 mil/mm3 (4.00-5.30); Red Cell Distribution Width 13.9 % (11.6-17.2); White Blood Count 12.6 th/mm3 (4.0-11.0)
[2017-12-09 09:20] LABS: Anion Gap 8 meq/L (5-15); Blood Urea Nitrogen 15 mg/dL (7-18); Calcium 7.9 mg/dL (8.5-10.1); Carbon Dioxide 25.8 meq/L (21.0-32.0); Chloride 105 meq/L (98-107); Glomerular Filtration Rate Greater Than 89 mL/min (>89); Glucose,Random 119 mg/dL (74-106); Potassium 3.3 meq/L (3.5-5.1); Sodium 139 meq/L (136-145)
[2017-12-09] MEDS: Atenolol 50 MG Tablet PO SCH (09:30)
[2017-12-09] MEDS ORDERED: Hydrocortisone Sod Succinate 250 MG Vial IV.PUSH ONE (11:00)
[2017-12-09] MEDS ORDERED: [UNRECOGNIZED DRUG - OTHER] TOPICAL ONE (11:45)
[2017-12-09] MEDS ORDERED: Diatrizoate Meglum/Diatrizoate Sod Liq 9 ML UDC PO ONE (12:00)
--- NOTE | 2017-12-09 12:00 | P.PNIM ---
Subjective Interval history: Follow up: Perforated diverticulum, and HTN Patient reports lack of energy BLE nonpitting edema, patient reports that her BLE are often swollen and today they look, "pretty good." WBC increased to 12.6 today patient's 24 hour T max 100.[address] abd/pelvis with possible abscess drainage today with IR Physical Exam Vital signs: Vital Signs 12/08/17 12:00 12/08/17 16:00 12/08/17 20:34 Temperature 97.9 F 98.4 F 100.5 F H Pulse Rate 73 75 73 Respiratory Rate 17 18 18 Blood Pressure 134/59 L 142/64 H 118/71 Pulse Oximetry 95 97 98 12/09/17 00:37 12/09/17 04:13 12/09/17 08:00 Temperature 100.8 F H 98.7 F 99.1 F Pulse Rate 82 63 69 Respiratory Rate 18 17 17 Blood Pressure 127/59 L 130/62 110/61 Pulse Oximetry 98 97 95 Intake & Output 12/08/17 12/09/17 12/09/17 18:59 06:59 18:59 Intake Total 2200 / 2200 1100 / 1100 50 / 50 Balance 2200 / 2200 1100 / 1100 50 / 50 Weight 74 kg Intake: IV 2100 / 2100 1100 / 1100 50 / 50 D5W/1/2NS + KCL 10 mEq Inj 1, 1000 / 1000 000 ML @ 100 mls/hr IV.CONT . Q10H [facility] Rx#:[id number] NS Inj 1,000 ML @ 150 mls/hr IV 1999 / 1999 .CONT .Q6H40M [facility] Rx#:[id number] Zosyn 3.375 GM Premix 50 ML @ 100 / 100 100 / 100 50 / 50 100 mls/hr IV.SIG Q6H [facility] Rx#: [id number] Oral 100 / 100 Other: # Voids 4 3 # Bowel Movements 1 Narrative: General: NAD, AAOx3 Chest: CTA Cardiac: Regular Abd: +BS, soft mildly distended, nontender Ext: nonpitting BLE edema Results - Labs CBC & Chem 7: 12/10/17 05:21 12/10/17 05:21 Laboratory Results - last 24 hr 12/09/17 12/09/17 07:31 07:31 WBC 12.6 H RBC 3.86 L Hgb 10.9 L Hct 33.3 L MCV 86.3 MCH 28.4 MCHC 32.9 RDW 13.9 Plt Count 283 MPV 7.3 Neut % (Auto) 80.4 H Lymph % (Auto) 8.9 L [place] % (Auto) 9.0 H Eos % (Auto) 1.2 Baso % (Auto) 0.5 Neut # (Auto) 10.1 H Lymph # (Auto) 1.1 [place] # (Auto) 1.1 H Eos # (Auto) 0.2 Baso # (Auto) 0.1 WBC Differential . Differential Comment Auto diff final Sodium 139 Potassium 3.3 L Chloride 105 Carbon Dioxide 25.8 Anion Gap 8 BUN 15 Creatinine 0.58 Estimated GFR Greater than 89 Random Glucose 119 H Calcium 7.9 L Microbiology 12/06/17 17:40 Blood - Peripheral Aerobic Blood Culture - Preliminary No growth in 3 days 12/06/17 17:40 Blood - Peripheral Anaerobic Blood Culture - Preliminary No growth in 3 days 12/06/17 17:48 Blood - Peripheral Aerobic Blood Culture - Preliminary No growth in 3 days 12/06/17 17:48 Blood - Peripheral Anaerobic Blood Culture - Preliminary No growth in 3 days Assessment and Plan - Assessment (1) Perforated bowel Code(s): K63.1 - Perforation of intestine (nontraumatic) Status: Acute Plan: Perforated bowel Diverticulitis - Pt is a 57 y/o female with HTN, hx of breast cancer, and hx of melanoma. - She presented to the ED at [facility] [place] on 12/06/17 with a 5-day history of abdominal pain, N/V. She initially presented to [place] ED on 12/01/[address] Abd/ pelvis which revealed acute sigmoid diverticulitis, no perforation or abscess, and no obstruction. Pt was started on oral antibiotics with Cipro and Flagyl BID x 14 days and discharged to home. She states that she was having difficulty keeping down antibiotics. On Thursday, symptoms worsened and she had increased emesis and she was unable to keep down fluids or medication. She presented back to the emergency room on 12/06/17 for re-evaluation. - Noncontrasted CT abd/pelvis (12/06) --> significant free intraperitoneal air collected under the diaphragm and in the root of mesentery. - Pt has had intermittent fevers and chills prior to admission. - Pt has been having liquid bowel movements, Hemoccult negative. - Blood cultures (12/06) with NGTD - Pt was started on Zosyn in the ED and this was continued. - General Surgery evaluated the pt in the ED last night and they are recommending continued supportive care and IV antibiotics and monitoring her clinical status closely. - Zofran PRN and Reglan PRN - Change IVF to D5W with KCL - 12/09 WBC increased to 12.6 and 24 huor T max 100.8 - Plan for CT abd/pelvis with possible abscess drainage today with IR - Encourage ambulation - NPO - Supportive care HTN - Home meds continued, Atenolol - Vasotec PRN Hypokalemia potassium 3.3 today replaced BLE edema - BLE nonpitting edema, patient reports that her BLE are often swollen and today they look, "pretty good." - cardiac echocardiogram ordered DVT prophylaxis with SCDs (2) Diverticulitis Code(s): K57.92 - Diverticulitis of intestine, part unspecified, without perforation or abscess without bleeding Status: Acute (3) HTN (hypertension) Code(s): I10 - Essential (primary) hypertension Status: Chronic - Attending Attestation Patient examined. Assessment and plan formulated with Sara Henry PA-C. John agree with the above.
[2017-12-09 12:09] LABS: INR 1.2 Ratio
--- NOTE | 2017-12-09 12:39 | P.PNGS ---
Subjective Interval history: Wbc increased to 12.6 Low grade temp overnight C/O some nausea Physical Exam Vital signs: Vital Signs 12/08/17 16:00 12/08/17 20:34 12/09/17 00:37 Temperature 98.4 F 100.5 F H 100.8 F H Pulse Rate 75 73 82 Respiratory Rate 18 18 18 Blood Pressure 142/64 H 118/71 127/59 L Pulse Oximetry 97 98 98 12/09/17 04:13 12/09/17 08:00 Temperature 98.7 F 99.1 F Pulse Rate 63 69 Respiratory Rate 17 17 Blood Pressure 130/62 110/61 Pulse Oximetry 97 95 Intake & Output 12/08/17 12/09/17 12/09/17 18:59 06:59 18:59 Intake Total 2200 / 2200 1100 / 1100 50 / 50 Balance 2200 / 2200 1100 / 1100 50 / 50 Weight 74 kg Intake: IV 2100 / 2100 1100 / 1100 50 / 50 D5W/1/2NS + KCL 10 mEq Inj 1, 1000 / 1000 000 ML @ 100 mls/hr IV.CONT . Q10H [facility] Rx#:[id number] NS Inj 1,000 ML @ 150 mls/hr IV 1999 / 1999 .CONT .Q6H40M [facility] Rx#:[id number] Zosyn 3.375 GM Premix 50 ML @ 100 / 100 100 / 100 50 / 50 100 mls/hr IV.SIG Q6H [facility] Rx#: [id number] Oral 100 / 100 Other: # Voids 4 3 # Bowel Movements 1 Narrative: GENERAL: This is a well-nourished, well-developed patient, in no apparent distress. RESPIRATORY: Clear to auscultation. Breath sounds equal bilaterally. No wheezes , rales, or rhonchi. GASTROINTESTINAL: soft, non tended with mild distention but improved from yesterday, having BM's - Additional findings Additional findings: Laboratory Results - last 24 hr 12/09/17 12/09/17 12/09/17 07:31 07:31 11:47 WBC 12.6 H RBC 3.86 L Hgb 10.9 L Hct 33.3 L MCV 86.3 MCH 28.4 MCHC 32.9 RDW 13.9 Plt Count 283 MPV 7.3 Neut % (Auto) 80.4 H Lymph % (Auto) 8.9 L [place] % (Auto) 9.0 H Eos % (Auto) 1.2 Baso % (Auto) 0.5 Neut # (Auto) 10.1 H Lymph # (Auto) 1.1 [place] # (Auto) 1.1 H Eos # (Auto) 0.2 Baso # (Auto) 0.1 WBC Differential . Differential Comment Auto diff final PT 12.0 H INR 1.2 Sodium 139 Potassium 3.3 L Chloride 105 Carbon Dioxide 25.8 Anion Gap 8 BUN 15 Creatinine 0.58 Estimated GFR Greater than 89 Random Glucose 119 H Calcium 7.9 L Assessment and Plan - Assessment (1) Perforated bowel Code(s): K63.1 - Perforation of intestine (nontraumatic) Status: Acute - Plan CT abdomen/pelvis with IV and Oral contrast, protocol in place for contrast allergy. If abscess is present would appreciate IR to drain. Continued management will depend on results of CT Code Status: Full Discharge Planning: Depending on hospital course - Attending Attestation The exam, history, and the medical decision-making described in the above note were completed with the assistance of the mid-level provider. I reviewed and agree with the findings presented. I attest that I had a byks-co-zodo encounter with the patient on the same day, and personally performed and documented my assessment and findings in the medical record.
[2017-12-09] MEDS ORDERED: Lidocaine 1%/Epinephrine 1:100,000 Inj 20 ML Vial ONE (14:14)
[2017-12-09] MEDS ORDERED: fentaNYL Citrate Inj 250 MCG/5 ML Ampul ONE (15:12)
--- NOTE | 2017-12-09 15:36 | P.RAD ---
Post CT Procedure Prog Note - Pre Procedure Diagnosis (1) Perforated bowel - Post Procedure Diagnosis (1) Perforated bowel - Procedure Information Procedure Date: 12/09/17 Supervising Radiologist: Kieran Kam MD Anesthesia: Conscious Sedation - Plan of Activity Patient to Unit: Nursing Unit Patient condition: Good See PACS Report for procedural detail/treatment. Drainage Procedure CT right Abscess Drainage Placement Ukrainian Tube Size: 10 Drainage: Suction Fluid Removal (CCs): 20 Fluid Description: Cloudy, Yellow
--- NOTE | 2017-12-09 16:16 | CT ---
EXAM DATE: 12/09/2017 4:13 PM EDT AGE/SEX: 57 years / Female INDICATIONS: Abdominal abscess. CLINICAL DATA: This is the patient's initial encounter. Patient reports that signs and symptoms have been present for 1 day and indicates a pain score of 0/10. MEDICAL/SURGICAL HISTORY: Hypertension. Carcinoma, breast. Diverticulitis. perforated bowel Hysterectomy. bladder surgery COMPARISON: No prior exams available for comparison. BIOPSY SITE: abdominal abscess MEDICATION(S): 150mcg fentanyl (Sublimaze) IV DEVICE(S): 10 Fr [place] FLUID: Total volume of 5 of clear, red fluid was removed. Fluid was sent to lab for ordered studies.. . . PROCEDURE : CT guided drainage of the abdominal abscess. The risks, benefits and alternatives to the procedure were explained and verbal and written consent w as obtained. Using automated exposure control and adjustment of the mA and/or kV according to patient size, radiation dose was kept as low as reasonably achievable to obtain optimal diagnostic quality i mages. The site was prepped in sterile fashion. Full sterile technique was used, including cap, ma sk, sterile gloves and gown and a large sterile sheet. Hand hygiene and 2% chlorhexidine and/or beta dine/alcohol prep was utilized per protocol for cutaneous antisepsis. The skin and subcutaneous tiss ues were infiltrated with local anesthetic solution. DICOM format image data is available electronic ally for review and comparison. Using CT guidance the prescribed site was localized. Drainage was performed using the prescribed cat heter. The patient tolerated the procedure well and there were no complications. The patient tolerated the procedure well and there were no complications. The patient was sent to post anesthesia recovery in s table condition. FINDINGS: 20 cc of yellowish cloudy fluid was removed and business center representative specimen was sent to the lab. CONCLUSION: 1. Uncomplicated CT guided drainage. Electronically signed by: Kieran Kam MD 12/09/2017 4:15 PM EDT
--- NOTE | 2017-12-09 16:24 | CT ---
EXAM DATE: 12/09/2017 4:05 PM EDT AGE/SEX: 57 years / Female INDICATIONS: Abdominal abscess. CLINICAL DATA: This is the patient's subsequent encounter. Patient reports that signs and symptoms h ave been present for 2 days and indicates a pain score of 5/10. MEDICAL/SURGICAL HISTORY: Carcinoma, breast. Hypertension. Diverticulitis. perforated bowel Hysterectomy. Bladder surgery ORAL CONTRAST: No oral contrast ingested. RADIATION DOSE: 14.58 CTDI (mGy) COMPARISON: [facility] [place]OM[place] & PELVIS W/O CONTRAST, 12/06/2017. . TECHNIQUE: Multiple contiguous axial images were obtained through the abdomen and pelvis following b olus infusion of 69 ml Omnipaque 350 (iohexol) nonionic water-soluble contrast as a single exam dos e. No oral contrast ingested. Using automated exposure control and adjustment of the mA and/or kV ac cording to patient size, radiation dose was kept as low as reasonably achievable to obtain optimal di agnostic quality images. DICOM format image data is available electronically for review and comparis on. FINDINGS: A small left sided effusion is present. There is subsegmental atelectasis in the both bases. The live r and spleen are normal in size and no focal defects are identified. There is a trace amount of flui d over the dome of the liver. The gallbladder and pancreas are unremarkable. No intrahepatic or extr ahepatic ductal dilatation is seen. The adrenal glands and kidneys appear normal bilaterally. No hydr onephrosis or mass lesions are identified. There is mesenteric edema with abnormal thickening of the loops of small bowel in the right lower quadrant. There is also a developing abscess at the root of the mesentery measuring approximately 6 cm x 4 cm with an air-fluid level though this is not accessib le to percutaneous drainage. CT scan of the pelvis demonstrates findings of diverticulitis with a small amount of extraluminal gas . There is a 5 cm fluid collection superior to the dome of the bladder which is successful to percuta neous drainage. This contains fluid and gas. The bladder appears normal. No wall thickening or intral uminal masses are identified. CONCLUSION: Findings of abscess related to diverticulitis superior to the dome of the bladder. This is accessible to drainage. Developing fluid collection and abscess at the root of mesentery not accessible to percutaneous drain age Findings of small bowel ileus with wall thickening characteristic of inflammatory or infectious proce ss. Electronically signed by: Kieran Kam MD 12/09/2017 4:22 PM EDT
[2017-12-10] MEDS: KCL 10 mEq/D5W/NaCl 0.45% Inj 1,000 ML IV.CONT SCH ×3 (05:42→16:06)
[2017-12-10] MEDS: Piperacil/Tazo 3.375 GM Premix 50 ML IV.SIG SCH ×4 (05:42→22:36)
[2017-12-10 06:23] LABS: Baso % (Auto) 0.2 % (0.0-2.0); Eos # (Auto) 0.1 th/mm3 (0.0-0.4); Eos % (Auto) 1.1 % (0.0-4.0); Hematocrit 31.8 % (35.0-46.0); Hemoglobin 10.4 gm/dL (11.6-15.3); Lymph # (Auto) 1.9 th/mm3 (1.0-4.8); Lymph % (Auto) 15.6 % (9.0-44.0); Mean Corpuscular HGB Conc 32.6 % (32.0-36.0); Mean Corpuscular Volume 85.9 fL (80.0-100.0); Mean Platelet Volume 7.4 fL (7.0-11.0); Mono # (Auto) 1.1 th/mm3 (0.0-0.9); Mono % (Auto) 9.3 % (0.0-8.0); Neut # (Auto) 8.8 th/mm3 (1.8-7.7); Neut % (Auto) 73.8 % (16.0-70.0); Platelet Count 280 th/mm3 (150-450); Red Cell Distribution Width 14.1 % (11.6-17.2)
[2017-12-10 06:37] LABS: Anion Gap 7 meq/L (5-15); Blood Urea Nitrogen 11 mg/dL (7-18); Calcium 8.2 mg/dL (8.5-10.1); Carbon Dioxide 28.6 meq/L (21.0-32.0); Chloride 107 meq/L (98-107); Glomerular Filtration Rate Greater Than 89 mL/min (>89); Glucose,Random 84 mg/dL (74-106); Potassium 3.7 meq/L (3.5-5.1); Sodium 143 meq/L (136-145)
[2017-12-10 07:53] LABS: Lymphocytes 20 % (9-44); Monocytes 8 % (0-8); Myelocytes 2 % (0-0); Platelet Estimate Normal (Normal); Platelet Morphology Normal (Normal)
[2017-12-10 07:54] LABS: RBC Morphology Normal (Normal)
[2017-12-10] MEDS: Atenolol 50 MG Tablet PO SCH (08:43)
[2017-12-10] MEDS: Ketorolac Inj 30 MG/ML (IVP) Vial IV.PUSH PRN (09:35)
--- NOTE | 2017-12-10 12:59 | P.PNIM ---
Subjective Interval history: Pt's pain is controlled. Pt denies n/v. Physical Exam Vital signs: 12/10/17 08:00 12/10/17 11:10 Temperature 98.5 F Pulse Rate 65 Respiratory Rate 18 17 Blood Pressure 136/59 L Pulse Oximetry 95 Narrative: General: NAD, AAOx3 Chest: CTA Cardiac: Regular Abd: +BS, soft mildly distended, nontender - abscess drainage tube in place with less than 50ml in bulb, which is unchanged for current shift Ext: nonpitting BLE edema Results - Labs CBC & Chem 7: 12/10/17 05:21 12/10/17 05:21 12/06/17 17:40 Blood - Peripheral Aerobic Blood Culture - Preliminary No growth in 4 days 12/06/17 17:40 Blood - Peripheral Anaerobic Blood Culture - Preliminary No growth in 4 days 12/06/17 17:48 Blood - Peripheral Aerobic Blood Culture - Preliminary No growth in 4 days 12/06/17 17:48 Blood - Peripheral Anaerobic Blood Culture - Preliminary No growth in 4 days 12/09/17 15:30 Fluid - Peritoneal fluid Gram Stain - Final - Imaging Impressions Abdomen/Pelvis CT 12/09/17 00:00 CONCLUSION: Findings of abscess related to diverticulitis superior to the dome of the bladder. This is accessible to drainage. Developing fluid collection and abscess at the root of mesentery not accessible to percutaneous drainage Findings of small bowel ileus with wall thickening characteristic of inflammatory or infectious process. Abscess Drainage CT 12/09/17 00:00 CONCLUSION: 1. Uncomplicated CT guided drainage. Assessment and Plan - Assessment (1) Perforated bowel Code(s): K63.1 - Perforation of intestine (nontraumatic) Status: Acute Plan: Perforated bowel Diverticulitis - comgmt with General Surgery and Interventional Radiology - Pt is a 57 y/o female with HTN, hx of breast cancer, and hx of melanoma. - [place] [facility] [place] with a 5-day history of abdominal pain, N/V. She initially presented to [facility] ED on 12/01/[address] Abd/ pelvis which revealed acute sigmoid diverticulitis, no perforation or abscess, and no obstruction. Pt was started on oral antibiotics with Cipro and Flagyl BID x 14 days and discharged to home. She states that she was having difficulty keeping down antibiotics. On Thursday, symptoms worsened and she had increased emesis and she was unable to keep down fluids or medication. She presented back to the emergency room on 12/06/17 for re-evaluation. - Noncontrasted CT abd/pelvis (12/06) --> significant free intraperitoneal air collected under the diaphragm and in the root of mesentery. - Pt has had intermittent fevers and chills prior to admission. - Pt has been having liquid bowel movements, Hemoccult negative. - Blood cultures (12/06) with NGTD - Zosyn (12/07 - present) - Zofran PRN/ Reglan PRN - D51/2ND D5W with KCL - Afebrile since 12AM 12/09, WBC 12K (12/10) - CT a/p (12/09) - Findings of abscess related to diverticulitis superior to the dome of the bladder. This is accessible to drainage. - Developing fluid collection and abscess at the root of mesentery not accessible to percutaneous drainage - Findings of small bowel ileus with wall thickening characteristic of inflammatory or infectious process. - Pt underwent CT guided abscess drainage by IR (12/09) with removal of 20cc yellow cloudy fluid with specimen sent to the lab - Encourage ambulation - NPO - Supportive care HTN - Home meds continued, Atenolol - Vasotec PRN Hypokalemia -resolved BLE edema - BLE nonpitting edema, patient reports that her BLE are often swollen and they currently look, "pretty good." - cardiac echocardiogram --> pending DVT prophylaxis with SCDs (2) Diverticulitis Code(s): K57.92 - Diverticulitis of intestine, part unspecified, without perforation or abscess without bleeding Status: Acute (3) HTN (hypertension) Code(s): I10 - Essential (primary) hypertension Status: Chronic
--- NOTE | 2017-12-10 16:09 | P.PNGS ---
Subjective Interval history: Feeling better Nausea and pain controlled + BM and flatus WBC stable Physical Exam Vital signs: Vital Signs 12/09/17 20:00 12/10/17 00:00 12/10/17 08:00 Temperature 98.4 F 99.3 F 98.5 F Pulse Rate 65 55 L 65 Respiratory Rate 16 16 18 Blood Pressure 129/59 L 120/60 136/59 L Pulse Oximetry 94 L 95 95 12/10/17 11:10 12/10/17 12:00 12/10/17 16:00 Temperature 98.0 F 98.7 F Pulse Rate 65 74 Respiratory Rate 17 18 19 Blood Pressure 127/62 135/60 Pulse Oximetry 95 96 Intake & Output 12/09/17 12/10/17 12/10/17 18:59 06:59 18:59 Intake Total 1850 / 1850 1100 / 1100 Output Total 0 / 0 Balance 1850 / 1850 1100 / 1100 Intake: IV 1100 / 1100 1100 / 1100 D5W/1/2NS + KCL 10 mEq Inj 1, 1000 / 1000 1000 / 1000 000 ML @ 100 mls/hr IV.CONT . Q10H HATTIE Rx#:[id number] Zosyn 3.375 GM Premix 50 ML @ 100 / 100 100 / 100 100 mls/hr IV.SIG Q6H HATTIE Rx#: [id number] Oral 750 / 750 Output: Wound Drainage 0 / 0 Abdomen 0 / 0 Other: # Voids 6 2 Date of Last Bowel Movement 12/10/17 # Bowel Movements 4 Narrative: GENERAL: This is a well-nourished, well-developed patient RESPIRATORY: unlabored GASTROINTESTINAL: Abdomen soft, non-tender, accordion drain with scant amount of yellow drainage MUSCULOSKELETAL: Extremities without clubbing, cyanosis, or edema. NEURO: Alert & Oriented x4 to person, place, time, situation. Moves all ext x4 - Additional findings Additional findings: Impressions Abdomen/Pelvis CT 12/09/17 00:00 CONCLUSION: Findings of abscess related to diverticulitis superior to the dome of the bladder. This is accessible to drainage. Developing fluid collection and abscess at the root of mesentery not accessible to percutaneous drainage Findings of small bowel ileus with wall thickening characteristic of inflammatory or infectious process. Abscess Drainage CT 12/09/17 00:00 CONCLUSION: 1. Uncomplicated CT guided drainage. Laboratory Results - last 12 hr 12/10/17 12/10/17 05:21 05:21 WBC 12.0 H RBC 3.70 L Hgb 10.4 L Hct 31.8 L MCV 85.9 MCH 28.0 MCHC 32.6 RDW 14.1 Plt Count 280 MPV 7.4 Prelim Diff (Auto) Slide review pending Neut % (Auto) 73.8 H Lymph % (Auto) 15.6 Dent % (Auto) 9.3 H Eos % (Auto) 1.1 Baso % (Auto) 0.2 Neut # (Auto) 8.8 H Lymph # (Auto) 1.9 Dent # (Auto) 1.1 H Eos # (Auto) 0.1 Baso # (Auto) 0.0 WBC Differential Manual diff final Seg Neuts % (Manual) 63 Band Neuts % (Manual) 7 H Lymphocytes % (Manual) 20 Monocytes % (Manual) 8 Myelocytes % (Man) 2 H Abs Neuts (Manual) 8.6 H Differential Comment . Platelet Estimate Normal Platelet Morphology Normal RBC Morphology Normal Sodium 143 Potassium 3.7 Chloride 107 Carbon Dioxide 28.6 Anion Gap 7 BUN 11 Creatinine 0.64 Estimated GFR Greater than 89 Random Glucose 84 Calcium 8.2 L Assessment and Plan - Assessment (1) Perforated bowel Code(s): K63.1 - Perforation of intestine (nontraumatic) Status: Acute - Plan One area of drainage was safely accessed and drained, awaiting culture, there is another collection that was able to be reached. Will monitor CBC and continue with IV antibiotics Ok for clears, if tolerated can increase to full liquids tomorrow CBC, BMP in AM Discharge Planning: Depending on hospital course - Attending Attestation The exam, history, and the medical decision-making described in the above note were completed with the assistance of the mid-level provider. I reviewed and agree with the findings presented. I attest that I had a [id number] encounter with the patient on the same day, and personally performed and documented my assessment and findings in the medical record.
--- NOTE | 2017-12-10 19:18 | ECHRPT ---
Indication: Heart failure, unspecified CONCLUSIONS Normal left ventricular size and wall thickness. The left ventricular systolic function is normal wi th an estimated ejection fraction in the range of 60-65%. Left ventricular diastolic function parameters a re normal. [id number] mitral valve regurgitation. BP: / HR: Rhythm: Sinus MEASUREMENTS (Male / Female) Normal Values Technical Quality:Good 2D ECHO LV Diastolic Diameter PLAX 4.6 cm 4.2 - 5.9 / 3.9 - 5.3 cm LV Systolic Diameter PLAX 3.0 cm IVS Diastolic Thickness 0.9 cm 0.6 - 1.0 / 0.6 - 0.9 cm LVPW Diastolic Thickness 0.8 cm 0.6 - 1.0 / 0.6 - 0.9 cm LV Relative Wall Thickness 0.4 LVOT Diameter 1.8 cm M-MODE Aortic Root Diameter MM 2.5 cm LA Systolic Diameter MM 3.6 cm LA Ao Ratio MM 1.4 AV Cusp Separation MM 1.9 cm DOPPLER AV Peak Velocity 106.0 cm/s AV Peak Gradient 4.5 mmHg LVOT Peak Velocity 62.2 cm/s LVOT Peak Gradient 1.5 mmHg AV Area Cont Eq pk 1.5 cm MR Peak Velocity 274.0 cm/s MR Peak Gradient 30.0 mmHg Mitral E Point Velocity 85.4 cm/s Mitral A Point Velocity 61.2 cm/s Mitral E to A Ratio 1.4 LV E' Lateral Velocity 9.3 cm/s Mitral E to LV E' Lateral Ratio 9.2 LV E' Septal Velocity 7.9 cm/s Mitral E to LV E' Septal Ratio 10.8 PV Peak Velocity 105.0 cm/s PV Peak Gradient 4.4 mmHg FINDINGS LEFT VENTRICLE Normal left ventricular size and wall thickness. The left ventricular systolic function is normal wi th an estimated ejection fraction in the range of 60-65%. Left ventricular diastolic function parameters a re normal. RIGHT VENTRICLE Normal right ventricular size and systolic function. LEFT ATRIUM The left atrial size is normal. RIGHT ATRIUM The right atrial size is normal. ATRIAL SEPTUM Normal atrial septal thickness without atrial level shunting by limited color doppler interrogation. AORTA The aortic root and proximal ascending aorta are normal in size on limited imaging. MITRAL VALVE Chuir-on-aesk mitral valve regurgitation. AORTIC VALVE Trileaflet aortic valve. No aortic valve stenosis or regurgitation. TRICUSPID VALVE Structurally normal tricuspid valve. No tricuspid valve stenosis or regurgitation. PULMONARY VALVE The pulmonary valve is not well visualized. VESSELS The inferior vena cava is normal in size. PERICARDIUM No pericardial effusion. Nathan Dejesus MD, FACC, [facility] [place] (Electronically Signed) Final Date:10 December 2017 19:16
[2017-12-11] MEDS: KCL 10 mEq/D5W/NaCl 0.45% Inj 1,000 ML IV.CONT SCH ×2 (00:08→17:45)
[2017-12-11] MEDS: Piperacil/Tazo 3.375 GM Premix 50 ML IV.SIG SCH ×4 (04:43→21:44)
[2017-12-11 06:05] LABS: Hematocrit 31.7 % (35.0-46.0); Hemoglobin 10.5 gm/dL (11.6-15.3); Mean Corpuscular Hemoglobin 28.4 pg (27.0-34.0); Mean Corpuscular Volume 86.2 fL (80.0-100.0); Mean Platelet Volume 7.9 fL (7.0-11.0); Platelet Count 290 th/mm3 (150-450); Red Blood Count 3.68 mil/mm3 (4.00-5.30); Red Cell Distribution Width 13.7 % (11.6-17.2); White Blood Count 13.9 th/mm3 (4.0-11.0)
[2017-12-11 06:26] LABS: Anion Gap 8 meq/L (5-15); Blood Urea Nitrogen 9 mg/dL (7-18); Calcium 7.8 mg/dL (8.5-10.1); Carbon Dioxide 27.9 meq/L (21.0-32.0); Chloride 104 meq/L (98-107); Glomerular Filtration Rate Greater Than 89 mL/min (>89); Glucose,Random 97 mg/dL (74-106); Potassium 3.4 meq/L (3.5-5.1); Sodium 140 meq/L (136-145)
[2017-12-11] MEDS: Atenolol 50 MG Tablet PO SCH (08:58)
--- NOTE | 2017-12-11 15:05 | P.PNGS ---
Subjective Interval history: She still feels bloated. One more liquid stool today. Having mild nausea and some belching. Pain controlled. Physical Exam Vital signs: Vital Signs 12/10/17 16:00 12/10/17 20:00 12/11/17 00:00 Temperature 98.7 F 99.4 F 99.7 F H Pulse Rate 74 63 69 Respiratory Rate 19 17 17 Blood Pressure 135/60 120/67 126/65 Pulse Oximetry 96 95 93 L 12/11/17 08:00 12/11/17 12:00 Temperature 97.9 F 97.9 F Pulse Rate 68 57 L Respiratory Rate 18 18 Blood Pressure 125/61 120/65 Pulse Oximetry 94 L 94 L Intake & Output 12/10/17 12/11/17 12/11/17 18:59 06:59 18:59 Intake Total 1790 / 1790 1580 / 1580 Output Total 5 / 5 Balance 1780 / 1780 1575 / 1575 Intake: IV 1150 / 1150 1100 / 1100 D5W/1/2NS + KCL 10 mEq Inj 1, 1000 / 1000 1000 / 1000 000 ML @ 50 mls/hr IV.CONT . Q20H HATTIE Rx#:[id number] Zosyn 3.375 GM Premix 50 ML @ 150 / 150 100 / 100 100 mls/hr IV.SIG Q6H HATTIE Rx#: [id number] Oral 640 / 640 480 / 480 Output: Wound Drainage 5 / 5 Abdomen 5 / 5 Other: # Voids 5 2 Date of Last Bowel Movement 12/10/17 # Bowel Movements 2 Narrative: No distress Distended, mild diffuse ttp, Accordion drain small amt purulent output Assessment and Plan - Assessment (1) Diverticulitis of intestine with abscess Code(s): K57.80 - Diverticulitis of intestine, part unspecified, with perforation and abscess without bleeding Status: Acute - Plan S/p IR drainage of abscess. Large abscess remaining. WBC remains elevated. Unsure if this will resolve nonop. Will need repeat CT in a couple of days.
--- NOTE | 2017-12-11 16:22 | P.PNIM ---
Subjective Interval history: mild nausea pt's pain is controlled. Pt is ambulating in the hallway without difficulty one small BM at 11AM no flatus this afternoon/evening. Physical Exam Vital signs: 12/11/17 12:00 Temperature 97.9 F Pulse Rate 57 L Respiratory Rate 18 Blood Pressure 120/65 Pulse Oximetry 94 L Narrative: GENERAL: This is a well-nourished, well-developed patient, in no apparent distress. CARDIOVASCULAR: Regular rate and rhythm without murmurs, gallops, or rubs. RESPIRATORY: Clear to auscultation. Breath sounds equal bilaterally. No wheezes , rales, or rhonchi. GASTROINTESTINAL: Distended, mild diffuse ttp, Accordion drain small amt purulent output, decreased bowel sounds from 12/10 MUSCULOSKELETAL: Extremities without clubbing, cyanosis, or edema. NEURO: Alert & Oriented x4 to person, place, time, situation. Moves all ext x4 Results - Labs CBC & Chem 7: 12/11/17 04:00 12/11/17 04:00 Microbiology 12/06/17 17:40 Blood - Peripheral Aerobic Blood Culture - Final No growth in 5 days 12/06/17 17:40 Blood - Peripheral Anaerobic Blood Culture - Final No growth in 5 days 12/06/17 17:48 Blood - Peripheral Aerobic Blood Culture - Final No growth in 5 days 12/06/17 17:48 Blood - Peripheral Anaerobic Blood Culture - Final No growth in 5 days 12/09/17 15:30 Fluid - Peritoneal fluid Gram Stain - Final 12/09/17 15:30 Fluid - Peritoneal fluid Body Fluid Culture - Preliminary No growth in 48 hours Assessment and Plan - Assessment (1) Perforated bowel Code(s): K63.1 - Perforation of intestine (nontraumatic) Status: Acute Plan: Perforated bowel Diverticulitis - comgmt with General Surgery and Interventional Radiology - Pt is a 57 y/o female with HTN, hx of breast cancer, and hx of melanoma. - She presented to the ED at [facility] [place] on [place]/06/17 with a 5-day history of abdominal pain, N/V. She initially presented to [facility] ED on 12/01/[address] Abd/ pelvis which revealed acute sigmoid diverticulitis, no perforation or abscess, and no obstruction. Pt was started on oral antibiotics with Cipro and Flagyl BID x 14 days and discharged to home. She states that she was having difficulty keeping down antibiotics. On Thursday, symptoms worsened and she had increased emesis and she was unable to keep down fluids or medication. She presented back to the emergency room on 12/06/17 for re-evaluation. - Noncontrasted CT abd/pelvis (12/06) --> significant free intraperitoneal air collected under the diaphragm and in the root of mesentery. - Pt has had intermittent fevers and chills prior to admission. - Pt has been having liquid bowel movements, Hemoccult negative. - Blood cultures (12/06) with NGTD - Zosyn (12/07 - present) - Zofran PRN/ Reglan PRN - D51/2ND D5W with KCL - Afebrile since 12AM 12/09, WBC 12K (12/10) - CT a/p (12/09) - Findings of abscess related to diverticulitis superior to the dome of the bladder. This is accessible to drainage. - Developing fluid collection and abscess at the root of mesentery not accessible to percutaneous drainage - Findings of small bowel ileus with wall thickening characteristic of inflammatory or infectious process. - Pt underwent CT guided abscess drainage by IR (12/09) with removal of 20cc yellow cloudy fluid - abscess fluid gram stain (12/11) --> no WBC, no organism - abscess culture (12/11) --> NO growth - Encourage ambulation - liquid diet - repeat CBC in AM - KUB in AM - repeat CT A/P 12/13 - Case d/w General Surgery, Dr. Mckeon (12/11) - Supportive care HTN - Home meds continued, Atenolol - Vasotec PRN Hypokalemia -resolved BLE edema - BLE nonpitting edema, patient reports that her BLE are often swollen and they currently look, "pretty good." - cardiac echocardiogram --> pending - lasix 20mg IV x once in AM DVT prophylaxis with SCDs (2) Diverticulitis Code(s): K57.92 - Diverticulitis of intestine, part unspecified, without perforation or abscess without bleeding Status: Acute (3) HTN (hypertension) Code(s): I10 - Essential (primary) hypertension Status: Chronic
[2017-12-11] MEDS ORDERED: Simethicone 125 MG Chew Tablet PO PRN (17:03)
[2017-12-11] MEDS ORDERED: Simethicone 80 MG Chew Tablet PO PRN (17:30)
--- NOTE | 2017-12-11 21:14 | XR ---
EXAM DATE: 12/11/2017 9:11 PM EDT AGE/SEX: 57 years / Female INDICATIONS: Abdominal pain from bowel perforation. CLINICAL DATA: This is the patient's subsequent encounter. Patient reports that signs and symptoms h ave been present for 1 week and indicates a pain score of 5/10. MEDICAL/SURGICAL HISTORY: . Bowel perforation. Hysterectomy. [place] [facility] [place]/09/[place]. . FINDINGS: There is an ileus. No free air. Drain overlies pelvis. No acute bony abnormalities. CONCLUSION: Ileus. Drain overlying pelvis. Electronically signed by: Avery Mack MD 12/11/2017 9:13 PM EDT
[2017-12-12] MEDS: Piperacil/Tazo 3.375 GM Premix 50 ML IV.SIG SCH ×3 (04:57→16:28)
[2017-12-12 06:15] LABS: Baso % (Auto) 0.3 % (0.0-2.0); Eos # (Auto) 0.1 th/mm3 (0.0-0.4); Eos % (Auto) 0.4 % (0.0-4.0); Hematocrit 34.7 % (35.0-46.0); Hemoglobin 11.3 gm/dL (11.6-15.3); Lymph # (Auto) 1.2 th/mm3 (1.0-4.8); Lymph % (Auto) 7.1 % (9.0-44.0); Mean Corpuscular HGB Conc 32.7 % (32.0-36.0); Mean Corpuscular Hemoglobin 28.7 pg (27.0-34.0); Mean Corpuscular Volume 87.7 fL (80.0-100.0); Mean Platelet Volume 8.1 fL (7.0-11.0); Mono % (Auto) 5.6 % (0.0-8.0); Neut # (Auto) 15.1 th/mm3 (1.8-7.7); Neut % (Auto) 86.6 % (16.0-70.0); Platelet Count 337 th/mm3 (150-450); Red Blood Count 3.95 mil/mm3 (4.00-5.30); Red Cell Distribution Width 13.9 % (11.6-17.2); White Blood Count 17.4 th/mm3 (4.0-11.0)
[2017-12-12 06:47] LABS: Anion Gap 11 meq/L (5-15); Blood Urea Nitrogen 5 mg/dL (7-18); Calcium 8.3 mg/dL (8.5-10.1); Carbon Dioxide 25.1 meq/L (21.0-32.0); Chloride 102 meq/L (98-107); Glomerular Filtration Rate Greater Than 89 mL/min (>89); Glucose,Random 90 mg/dL (74-106); Magnesium 1.9 mg/dL (1.5-2.5); Potassium 3.6 meq/L (3.5-5.1); Sodium 138 meq/L (136-145)
--- NOTE | 2017-12-12 09:13 | P.PNGS ---
Subjective Interval history: Continues to feel bloated. WBC increasing. Physical Exam Vital signs: Vital Signs 12/11/17 12:00 12/11/17 16:38 12/11/17 20:00 Temperature 97.9 F 98.2 F 100.8 F H Pulse Rate 57 L 61 70 Respiratory Rate 18 18 17 Blood Pressure 120/65 121/83 149/68 H Pulse Oximetry 94 L 94 L 96 12/12/17 00:00 Temperature 99.5 F Pulse Rate 78 Respiratory Rate 17 Blood Pressure 139/70 Pulse Oximetry 92 L Intake & Output 12/11/17 12/12/17 12/12/17 18:59 06:59 18:59 Intake Total 1939 / 1939 50 / 50 Balance 1939 / 1939 50 / 50 Intake: IV 1100 / 1100 50 / 50 D5W/1/2NS + KCL 10 mEq Inj 1, 1000 / 1000 000 ML @ 50 mls/hr IV.CONT . Q20H HATTIE Rx#:[id number] Zosyn 3.375 GM Premix 50 ML @ 100 / 100 50 / 50 100 mls/hr IV.SIG Q6H HATTIE Rx#: [id number] Oral 840 / 840 0 / 0 Other: # Voids 5 3 Date of Last Bowel Movement 12/11/17 Narrative: Abd: distended, soft, mild diffuse ttp Assessment and Plan - Assessment (1) Diverticulitis of intestine with abscess Code(s): K57.80 - Diverticulitis of intestine, part unspecified, with perforation and abscess without bleeding Status: Acute - Plan I had a long discussion with her last night recommending surgical intervention. At that time she desired to wait a couple more days then changed her mind and I was called at 9pm. She now does desire to proceed. I will attempt laparoscopic drainage of abscesses with diverting ileostomy, with possible ex lap, sigmoid rsection, and colostomy if needed. She understands all of these possibilities and desires to proceed.
[2017-12-12] MEDS: Atenolol 50 MG Tablet PO SCH (10:26)
[2017-12-12] MEDS ORDERED: Glycopyrrolate Inj 1 MG/5 ML Syringe IV.PUSH ONE (12:00)
[2017-12-12] MEDS ORDERED: Lidocaine PF 1% Inj 5 ML Syringe INFILTRATN ONE (12:00)
[2017-12-12] MEDS ORDERED: Succinylcholine Inj 100 MG/5 ML Syringe IV.PUSH ONE (12:00)
[2017-12-12] MEDS ORDERED: Sod Chloride 0.9% Inj 3,000 ML IV.SIG ONE (12:00)
[2017-12-12] MEDS ORDERED: Neostigmine Inj 5 MG/5 ML Syringe IV.PUSH ONE (12:00)
[2017-12-12] MEDS ORDERED: Bupivacaine/Epinephrine Inj 0.25% 50 ML Vial ONE (13:27)
--- NOTE | 2017-12-12 18:19 | P.OP ---
- Preoperative Diagnosis (1) Diverticulitis of intestine with abscess - Postoperative Diagnosis (1) Diverticulitis of intestine with abscess Date of procedure: 12/14/17 Procedure: Diagnostic laparoscopy Exploratory laparotomy drainage of abscess Sigmoid resection with end colostomy Ileocecectomy Anesthesia: PAULA Surgeon: Olayinka Mckeon MD [employer] Professional: Mauro BOSCH Estimated blood loss (mL): 300 Pathology: other (sigmoid colon; terminal ileum and cecum) Operation and Findings: Operative findings: The patient had extensive inflammation throughout the entire abdomen and worse in the lower abdomen. The bowel was friable secondary to prolonged inflammation. A large abscess was present within the mesentery of the small bowel. The terminal ileum was significantly inflamed and friable. Sigmoid colon was indurated. Procedure in detail: The patient was taken to the operating room and placed in supine position. General endotracheal anesthesia was induced and the abdomen was prepped and draped in usual sterile fashion. Surgical timeout was performed to verify correct patient procedure and site. Local anesthetic was injected in the skin and subcutaneous tissue in the right upper abdomen and a 5 mm incision made. Using a Optiview trocar the laparoscope was directly inserted without difficulty and the abdomen insufflated to 15 mmHg with CO2 gas. There is extensive adhesion of the omentum to the anterior abdominal wall. A second 5 mm trocar was placed in the right midabdomen. The omentum was brought down bluntly using the suction food tray assembler fairly easily. However, at this point it was obvious I was going to be unable to complete the operation secondary to the extensive inflammation laparoscopically. A midline laparotomy incision was then made. The omentum was adherent to underlying small bowel as well as the lateral abdominal cooley. This was carefully bluntly and with judicious use of electrocautery. Extensive inflammation was present in the lower abdomen and all of the small bowel and colon was adherent to itself. This was subacute inflammation and there was a bit of difficulty it. This was primarily bluntly. The mesentery of the terminal ileum a large abscess with pus was present this was evacuated. After extensive separation of bowel the anatomy was able to be delineated. The sigmoid colon was inflamed and indurated. I proceeded with sigmoid resection. Space was cleared in the distal sigmoid and the mesentery and the contour green load stapler used to divide the distal sigmoid. The lateral sigmoid colon dissected along the white line of Toldt. The mesentery of the sigmoid colon was divided with the harmonic scalpel. The mesentery was extremely thickened and 0 Vicryl stick tie was used in areas with persistent bleeding. The proximal colon was divided at the distal descending and the involved area of sigmoid colon removed. Attention was turned to the terminal ileum which was quite indurated and multiple serosal tears were present from the severe inflammation. In addition a short segment was dusky appearing and it was apparent the mesentery had been injured during blunt dissection as this was a part of the abscess wall. This portion of terminal ileum did not improve in color and obviously required resection. The involved terminal ileum is very close to the ileocecal valve and therefore an ileocecectomy is required. The cecum was elevated from the indurated tissue. The mesentery of the terminal ileum is quite shortened due to the inflammation and very thickened. The site is chosen proximally on the terminal ileum which is only minimally inflamed and it was divided with REX blue load. The mesentery was divided with harmonic scalpel although it is very thick and some areas require oversewing with 3-0 silk suture. The lateral colon attachements from the abdominal wall with electrocautery and mesentery continued to be divided with the harmonic scalpel. Site in the ascending colon was chosen and the colon divided with REX blue load stapler. Specimen is removed and a [id number] functional end-to-end ileocolic anastomosis performed with a REX 75 blue load stapler and TX 60. There is no tension on the anastomosis and no bleeding. The mesenteric defect was closed with 3-0 silk suture. A 3-0 silk stitch placed at the end of the staple line. A couple of more proximal serosal tears are oversewed with 3-0 silk suture. 2- 0 Prolene placed on the rectal stump for future identification. The abdomen is copiously irrigated with 5 L of warm normal saline. 19 [place]atian round Vahid drain is placed through the right laparoscopic port made along the right paracolic gutter and into the pelvis. In the left mid to upper abdomen a circular skin incision is created in the cruciate incision made in the fascia. The descending colon pulled through the abdominal wall for creation of the colostomy. Fascial closure performed with # 1 looped PDS suture. The wound is copiously irrigated and wide skin staplers used to close the skin. A niko wound incisional VAC is placed. The colostomy was then matured in Dania fashion with interrupted 3-0 Vicryl suture and appliance placed. The patient tolerated the procedure well overall and was extubated and taken to PACU in stable condition. Overall due to extensive inflammation this case took approximately 3.5 hrs.
[2017-12-12] MEDS ORDERED: Naloxone Inj 0.4 MG/ML Vial IV.PUSH PRN (18:23)
[2017-12-12] MEDS ORDERED: HYDROmorphone PCA Inj 6 MG/30 ML PCA.VIAL PCA ONE (18:27)
[2017-12-12] MEDS ORDERED: *morphine SULFATE 10 MG/ML PERIprocedure ONLY ONE (18:40)
[2017-12-12] MEDS ORDERED: *Ondansetron Inj 4 MG/2 ML Vial PERIprocedural Use ONLY ONE (18:40)
[2017-12-12] MEDS ORDERED: fentaNYL Citrate Inj 100 MCG/2 ML Ampul ONE (18:41)
[2017-12-12] MEDS: HYDROmorphone PCA Inj 6 MG/30 ML PCA.VIAL PCA PRN (19:03)
[2017-12-12] MEDS: Ketorolac Inj 30 MG/ML (IVP) Vial IV.PUSH SCH (19:05)
[2017-12-13] MEDS: Ketorolac Inj 30 MG/ML (IVP) Vial IV.PUSH SCH ×3 (00:34→12:03)
[2017-12-13] MEDS: Piperacil/Tazo 3.375 GM Premix 50 ML IV.SIG SCH ×5 (00:34→21:37)
[2017-12-13] MEDS: Atenolol 50 MG Tablet PO SCH (09:34)
--- NOTE | 2017-12-13 10:53 | P.PNIM ---
Subjective Interval history: Pt underwent exp/diagnostic laparoscopy, abscess drainage, sigmoid resection with end colostomy, and ileocecostomy 12/12/17 performed by General Surgery, Dr. Mckeon. Pt has NGT to continuous suction. Pt's pain is controlled with current regimen. No flatus in colostomy bag yet. Physical Exam Vital signs: 12/13/17 03:56 12/13/17 08:00 Temperature 98.2 F 97.7 F Pulse Rate 59 L 59 L Respiratory Rate 16 17 Blood Pressure 115/62 111/58 L Pulse Oximetry 100 100 Narrative: GENERAL: NAD, NGT in place CARDIOVASCULAR: Regular rate and rhythm without murmurs, gallops, or rubs. RESPIRATORY: Clear to auscultation. Breath sounds equal bilaterally. No wheezes , rales, or rhonchi. GASTROINTESTINAL: Abdomen soft, abd bandage c/d/i, soft, no bowel sounds yet. colostomy noted without stool or gas in gag yet, CHRISTIAN drain at RLQ with sanguinous drainage MUSCULOSKELETAL: Extremities without clubbing, cyanosis, or edema. NEURO: Alert & Oriented x4 to person, place, time, situation. Moves all ext x4 - Urinary Catheter Management 1 Cath placed during this visit: yes Reason for continuing: Other continuation reason Insertion date: 12/12/17 Results - Labs CBC & Chem 7: 12/12/17 05:00 12/12/17 05:00 Microbiology 12/12/17 15:20 Abscess - Abdominal Gram Stain - Final 12/09/17 15:30 Fluid - Peritoneal fluid Gram Stain - Final 12/09/17 15:30 Fluid - Peritoneal fluid Body Fluid Culture - Final No growth in 72 hours (aerobically and anaerobically ) Assessment and Plan - Assessment (1) Perforated bowel Code(s): K63.1 - Perforation of intestine (nontraumatic) Status: Acute Plan: Perforated bowel Diverticulitis - comgmt with General Surgery and Interventional Radiology - Pt is a 57 y/o female with HTN, hx of breast cancer, and hx of melanoma. - [place] [facility] [place] with a 5-day history of abdominal pain, N/V. She initially presented to [facility] ED on 12/01/[address] Abd/ pelvis which revealed acute sigmoid diverticulitis, no perforation or abscess, and no obstruction. Pt was started on oral antibiotics with Cipro and Flagyl BID x 14 days and discharged to home. She states that she was having difficulty keeping down antibiotics. On Thursday, symptoms worsened and she had increased emesis and she was unable to keep down fluids or medication. She presented back to the emergency room on 12/06/17 for re-evaluation. - Noncontrasted CT abd/pelvis (12/06) --> significant free intraperitoneal air collected under the diaphragm and in the root of mesentery. - Pt has had intermittent fevers and chills prior to admission. - Pt has been having liquid bowel movements, Hemoccult negative. - Blood cultures (12/06) with NGTD - Zosyn (12/07 - present) - Zofran PRN/ Reglan PRN - D51/2ND D5W with KCL - Afebrile since 12AM 12/09, WBC 12K (12/10) - CT a/p (12/09) - Findings of abscess related to diverticulitis superior to the dome of the bladder. This is accessible to drainage. - Developing fluid collection and abscess at the root of mesentery not accessible to percutaneous drainage - Findings of small bowel ileus with wall thickening characteristic of inflammatory or infectious process. - Pt underwent CT guided abscess drainage by IR (12/09) - removal of 20cc yellow cloudy fluid - abscess fluid gram stain (12/11) --> no WBC, no organism - abscess culture (12/11) --> NO growth - Exp/Diagnostic Laparoscopy (12/12/17) with Dr. Mckeon - sigmoid resection with end colostomy - abscess drainage - Ileocecostomy - Intraoperative Wound Cx (12/12/17) - gram stain --> NO WBC, no organisms - would Cx --> pending - Case d/w Dr. 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 - SCDs for DVT prophylaxis - PT - awaiting AM labs - repeat labs 12/14/17 - supportive care HTN - Home meds continued, Atenolol - Vasotec PRN Hypokalemia -resolved BLE edema - BLE nonpitting edema, patient reports that her BLE are often swollen and they currently look, "pretty good." - cardiac echocardiogram (12/10) EF 60-65% - lasix 20mg IV x once - observe DVT prophylaxis with SCDs (2) Diverticulitis Code(s): K57.92 - Diverticulitis of intestine, part unspecified, without perforation or abscess without bleeding Status: Acute (3) HTN (hypertension) Code(s): I10 - Essential (primary) hypertension Status: Chronic
[2017-12-13 12:18] LABS: Baso # (Auto) 0.1 th/mm3 (0.0-0.2); Baso % (Auto) 0.3 % (0.0-2.0); Lymph # (Auto) 1.2 th/mm3 (1.0-4.8); Lymph % (Auto) 5.4 % (9.0-44.0); Mean Corpuscular HGB Conc 32.3 % (32.0-36.0); Mean Corpuscular Hemoglobin 28.1 pg (27.0-34.0); Mean Corpuscular Volume 86.9 fL (80.0-100.0); Mean Platelet Volume 8.3 fL (7.0-11.0); Mono # (Auto) 1.5 th/mm3 (0.0-0.9); Mono % (Auto) 6.3 % (0.0-8.0); Neut # (Auto) 20.2 th/mm3 (1.8-7.7); Platelet Count 505 th/mm3 (150-450); Red Blood Count 3.91 mil/mm3 (4.00-5.30); Red Cell Distribution Width 14.1 % (11.6-17.2); White Blood Count 22.9 th/mm3 (4.0-11.0)
[2017-12-13 12:35] LABS: Anion Gap 8 meq/L (5-15); Blood Urea Nitrogen 12 mg/dL (7-18); Carbon Dioxide 31.9 meq/L (21.0-32.0); Chloride 98 meq/L (98-107); Glomerular Filtration Rate Greater Than 89 mL/min (>89); Glucose,Random 106 mg/dL (74-106); Potassium 4.3 meq/L (3.5-5.1); Sodium 138 meq/L (136-145)
--- NOTE | 2017-12-13 13:15 | P.PNGS ---
Subjective Interval history: Pain is controlled. No complaints. Physical Exam Vital signs: Vital Signs 12/12/17 18:33 12/12/17 18:45 12/12/17 19:00 Temperature 98.9 F Pulse Rate 69 65 64 Respiratory Rate 16 12 14 Blood Pressure 116/54 L 121/81 118/69 Pulse Oximetry 97 98 99 12/12/17 19:15 12/12/17 19:43 12/12/17 19:57 Temperature 98.9 F Pulse Rate 61 61 Respiratory Rate 14 10 L Blood Pressure 163/82 H 133/77 Pulse Oximetry 99 99 99 12/12/17 20:00 12/13/17 00:00 12/13/17 03:56 Temperature 98.2 F 98.3 F 98.2 F Pulse Rate 58 L 57 L 59 L Respiratory Rate 16 16 16 Blood Pressure 148/69 H 102/60 115/62 Pulse Oximetry 99 100 100 12/13/17 08:00 12/13/17 12:00 Temperature 97.7 F 97.5 F L Pulse Rate 59 L 60 Respiratory Rate 17 17 Blood Pressure 111/58 L 121/66 Pulse Oximetry 100 100 Intake & Output 12/12/17 12/13/17 12/13/17 18:59 06:59 18:59 Intake Total 2500 / 2500 250 / 250 Output Total 600 / 600 580 / 580 260 / 260 Balance 1900 / 1900 -330 / -330 -260 / -260 Weight 75.1 kg Intake: IV 100 / 100 250 / 250 Ofirmev Inj 1,000 mg In 100 ml 200 / 200 @ 400 mls/hr IV.SIG Q6H HATTIE Rx# :[id number] Zosyn 3.375 GM Premix 50 ML @ 100 / 100 50 / 50 100 mls/hr IV.SIG Q6H HATTIE Rx#: [id number] Oral 0 / 0 Anesthesia Amount 2400 / 2400 Output: Estimated Blood Loss 200 / 200 Urine Amount (Catheter) 400 / 400 550 / 550 1 400 / 400 550 / 550 Stool Amount (Stoma) 0 / 0 Left Lower Abdomen 0 / 0 Gastric Drainage 50 / 50 Left Nare 50 / 50 Wound Drainage 30 / 30 210 / 210 # 1 Abdomen Vahid 30 / 30 210 / 210 Narrative: NAD Abd: soft, moderate distention, bandage vac c/d/i, ALEN ss output, colostomy pink no output, ngt moderate drainage - Urinary Catheter Management 1 Cath placed during this visit: yes Reason for continuing: Other continuation reason Insertion date: 12/12/17 Assessment and Plan - Assessment (1) Diverticulitis of intestine with abscess Code(s): K57.80 - Diverticulitis of intestine, part unspecified, with perforation and abscess without bleeding Status: Acute - Plan POD 1 ex lap, sigmiod resection, ileocectomy. Stable post op. 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 Add protonix, lovenox. Cont samuel enrique, alen Await return of bowel function. She will likely be here for 5 days or so post op.
[2017-12-13] MEDS: Enoxaparin Inj 40 MG/0.4 ML Syringe SQ SCH (15:53)
[2017-12-13] MEDS: Pantoprazole Inj 40 MG Vial IV.PUSH SCH (15:56)
[2017-12-14] MEDS: Piperacil/Tazo 3.375 GM Premix 50 ML IV.SIG SCH ×4 (04:34→21:19)
[2017-12-14 06:13] LABS: Baso # (Auto) 0.1 th/mm3 (0.0-0.2); Baso % (Auto) 0.3 % (0.0-2.0); Eos # (Auto) 0.1 th/mm3 (0.0-0.4); Eos % (Auto) 0.2 % (0.0-4.0); Hematocrit 31.2 % (35.0-46.0); Hemoglobin 10.1 gm/dL (11.6-15.3); Lymph # (Auto) 1.8 th/mm3 (1.0-4.8); Lymph % (Auto) 7.9 % (9.0-44.0); Mean Corpuscular HGB Conc 32.4 % (32.0-36.0); Mean Corpuscular Hemoglobin 27.9 pg (27.0-34.0); Mean Platelet Volume 8.2 fL (7.0-11.0); Mono # (Auto) 1.3 th/mm3 (0.0-0.9); Mono % (Auto) 5.9 % (0.0-8.0); Neut # (Auto) 19.4 th/mm3 (1.8-7.7); Neut % (Auto) 85.7 % (16.0-70.0); Platelet Count 599 th/mm3 (150-450); Red Blood Count 3.63 mil/mm3 (4.00-5.30); Red Cell Distribution Width 14.4 % (11.6-17.2); White Blood Count 22.6 th/mm3 (4.0-11.0)
[2017-12-14 06:41] LABS: Calcium 8.1 mg/dL (8.5-10.1); Carbon Dioxide 33.5 meq/L (21.0-32.0); Magnesium 2.3 mg/dL (1.5-2.5); Potassium 3.4 meq/L (3.5-5.1)
[2017-12-14] MEDS: Ketorolac Inj 30 MG/ML (IVP) Vial IV.PUSH SCH ×4 (07:24→17:48)
[2017-12-14] MEDS: Atenolol 50 MG Tablet PO SCH (08:51)
[2017-12-14] MEDS: Pantoprazole Inj 40 MG Vial IV.PUSH SCH (08:55)
--- NOTE | 2017-12-14 08:55 | P.PNIM ---
Subjective Interval history: Follow up: perforated bowel, diverticulitis patient is S/P Exp/Diagnostic Laparoscopy (12/12/17) with Dr. Mckeon - sigmoid resection with end colostomy - abscess drainage - Ileocecostomy Patient c/o dry mouth and fatigue Physical Exam Vital signs: Vital Signs 12/13/17 12:00 12/13/17 16:00 12/13/17 19:55 Temperature 97.5 F L 97.7 F 97.3 F L Pulse Rate 60 62 75 Respiratory Rate 17 17 16 Blood Pressure 121/66 121/59 L 99/52 L Pulse Oximetry 100 100 100 12/14/17 00:22 12/14/17 04:14 12/14/17 08:00 Temperature 97.5 F L 97.7 F 97.9 F Pulse Rate 72 77 89 Respiratory Rate 16 16 16 Blood Pressure 105/65 115/67 114/57 L Pulse Oximetry 100 100 92 L Intake & Output 12/13/17 12/14/17 12/14/17 18:59 06:59 18:59 Intake Total 200 / 200 50 / 50 50 / 50 Output Total 485 / 485 250 / 250 240 / 240 Balance -285 / -285 -200 / -200 -190 / -190 Weight 75.2 kg Intake: IV 200 / 200 50 / 50 50 / 50 Ofirmev Inj 1,000 mg In 100 ml 100 / 100 @ 400 mls/hr IV.SIG Q6H HATTIE Rx# :[id number] Zosyn 3.375 GM Premix 50 ML @ 100 / 100 50 / 50 50 / 50 100 mls/hr IV.SIG Q6H HATTIE Rx#: [id number] Oral 0 / 0 Output: Urine 225 / 225 Urine Amount (Catheter) 250 / 250 1 250 / 250 Stool Amount (Stoma) 0 / 0 Left Lower Abdomen 0 / 0 Gastric Drainage 50 / 50 150 / 150 Left Nare 50 / 50 150 / 150 Wound Drainage 210 / 210 90 / 90 # 1 Abdomen Vahid 210 / 210 90 / 90 Narrative: GENERAL: NAD, NGT in place CARDIOVASCULAR: Regular rate and rhythm RESPIRATORY: Clear to auscultation. Breath sounds equal bilaterally. GASTROINTESTINAL: Abdomen soft, abd bandage c/d/i, soft, no bowel sounds yet. colostomy noted without stool or gas in bag yet, CHRISTIAN drain at RLQ with sanguinous drainage MUSCULOSKELETAL: Extremities without clubbing, cyanosis, or edema. NEURO: Alert & Oriented x4 to person, place, time, situation. Moves all ext x4 - Urinary Catheter Management 1 Cath placed during this visit: yes Reason for continuing: Other continuation reason Insertion date: 12/12/17 Results - Labs CBC & Chem 7: 12/14/17 04:56 12/14/17 04:56 Laboratory Results - last 24 hr 12/13/17 12/13/17 12/14/17 12:00 12:00 04:56 WBC 22.9 H 22.6 H RBC 3.91 L 3.63 L Hgb 11.0 L 10.1 L Hct 34.0 L 31.2 L MCV 86.9 86.0 MCH 28.1 27.9 MCHC 32.3 32.4 RDW 14.1 14.4 Plt Count 505 H D 599 H MPV 8.3 8.2 Neut % (Auto) 88.0 H 85.7 H Lymph % (Auto) 5.4 L 7.9 L Dolores % (Auto) 6.3 5.9 Eos % (Auto) 0.0 0.2 Baso % (Auto) 0.3 0.3 Neut # (Auto) 20.2 H 19.4 H Lymph # (Auto) 1.2 1.8 Dolores # (Auto) 1.5 H 1.3 H Eos # (Auto) 0.0 0.1 Baso # (Auto) 0.1 0.1 WBC Differential . . Differential Comment Auto diff final Auto diff final Sodium 138 Potassium 4.3 Chloride 98 Carbon Dioxide 31.9 Anion Gap 8 BUN 12 Creatinine 0.59 Estimated GFR Greater than 89 Random Glucose 106 Calcium 8.0 L Magnesium 12/14/17 04:56 WBC RBC Hgb Hct MCV MCH MCHC RDW Plt Count MPV Neut % (Auto) Lymph % (Auto) Dolores % (Auto) Eos % (Auto) Baso % (Auto) Neut # (Auto) Lymph # (Auto) Dolores # (Auto) Eos # (Auto) Baso # (Auto) WBC Differential Differential Comment Sodium 139 Potassium 3.4 L D Chloride 96 L Carbon Dioxide 33.5 H Anion Gap 10 BUN 17 Creatinine 0.76 Estimated GFR 78 L Random Glucose 79 Calcium 8.1 L Magnesium 2.3 Microbiology 12/12/17 15:20 Abscess - Abdominal Gram Stain - Final 12/12/17 15:20 Abscess - Abdominal Wound Culture - Preliminary Pat albicans - Imaging Impressions Abdomen X-Ray 12/11/17 00:00 CONCLUSION: Ileus. Drain overlying pelvis. Assessment and Plan - Assessment (1) Perforated bowel Code(s): K63.1 - Perforation of intestine (nontraumatic) Status: Acute Plan: Perforated bowel Diverticulitis - comgmt with General Surgery and Interventional Radiology - Pt is a 57 y/o female with HTN, hx of breast cancer, and hx of melanoma. - She presented to the ED at [facility] [place] on 12/06/17 with a 5-day history of abdominal pain, N/V. She initially presented to [facility] ED on 12/01/[address] Abd/ pelvis which revealed acute sigmoid diverticulitis, no perforation or abscess, and no obstruction. Pt was started on oral antibiotics with Cipro and Flagyl BID x 14 days and discharged to home. She states that she was having difficulty keeping down antibiotics. On Thursday, symptoms worsened and she had increased emesis and she was unable to keep down fluids or medication. She presented back to the emergency room on 12/06/17 for re-evaluation. - Noncontrasted CT abd/pelvis (12/06) --> significant free intraperitoneal air collected under the diaphragm and in the root of mesentery. - Pt has had intermittent fevers and chills prior to admission. - Pt has been having liquid bowel movements, Hemoccult negative. - Blood cultures (12/06) with NGTD - WBC 22.9 (/5) -> 22.6 (6) - Zosyn (12/07 - present) - Zofran PRN/ Reglan PRN - D51/2ND D5W with KCL - Afebrile since 12AM 12/09, WBC 12K (12/10) - CT a/p (12/09) - Findings of abscess related to diverticulitis superior to the dome of the bladder. This is accessible to drainage. - Developing fluid collection and abscess at the root of mesentery not accessible to percutaneous drainage - Findings of small bowel ileus with wall thickening characteristic of inflammatory or infectious process. - Pt underwent CT guided abscess drainage by IR (12/09) - removal of 20cc yellow cloudy fluid - abscess fluid gram stain (12/11) --> no WBC, no organism - abscess culture (12/11) --> NO growth - Exp/Diagnostic Laparoscopy (12/12/17) with Dr. Mckeon - sigmoid resection with end colostomy - abscess drainage - Ileocecostomy - Intraoperative Wound Cx (12/12/17) - gram stain --> NO WBC, no organisms - would Cx --> pending - Case d/w Dr. 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 I reviewed and agree with the findings presented. I attest that I had a [id number] encounter with the patient on the same day, and personally performed and documented my assessment and findings in the medical record. (2) Diverticulitis Code(s): K57.92 - Diverticulitis of intestine, part unspecified, without perforation or abscess without bleeding Status: Acute (3) HTN (hypertension) Code(s): I10 - Essential (primary) hypertension Status: Chronic
--- NOTE | 2017-12-14 10:28 | P.PNGS ---
Subjective Interval history: Was up in chair and ambulated now feels weak. WBC remains elevated. Mouth feels dry and she thinks she is dehydrated. Physical Exam Vital signs: Vital Signs 12/13/17 12:00 12/13/17 16:00 12/13/17 19:55 Temperature 97.5 F L 97.7 F 97.3 F L Pulse Rate 60 62 75 Respiratory Rate 17 17 16 Blood Pressure 121/66 121/59 L 99/52 L Pulse Oximetry 100 100 100 12/14/17 00:22 12/14/17 04:14 12/14/17 08:00 Temperature 97.5 F L 97.7 F 97.9 F Pulse Rate 72 77 89 Respiratory Rate 16 16 16 Blood Pressure 105/65 115/67 114/57 L Pulse Oximetry 100 100 92 L Intake & Output 12/13/17 12/14/17 12/14/17 18:59 06:59 18:59 Intake Total 200 / 200 50 / 50 50 / 50 Output Total 485 / 485 250 / 250 240 / 240 Balance -285 / -285 -200 / -200 -190 / -190 Weight 75.2 kg Intake: IV 200 / 200 50 / 50 50 / 50 Ofirmev Inj 1,000 mg In 100 ml 100 / 100 @ 400 mls/hr IV.SIG Q6H HATTIE Rx# :[id number] Zosyn 3.375 GM Premix 50 ML @ 100 / 100 50 / 50 50 / 50 100 mls/hr IV.SIG Q6H HATTIE Rx#: [id number] Oral 0 / 0 Output: Urine 225 / 225 Urine Amount (Catheter) 250 / 250 1 250 / 250 Stool Amount (Stoma) 0 / 0 Left Lower Abdomen 0 / 0 Gastric Drainage 50 / 50 150 / 150 Left Nare 50 / 50 150 / 150 Wound Drainage 210 / 210 90 / 90 # 1 Abdomen Vahid 210 / 210 90 / 90 Narrative: No distress Abd: LU bandage in place, moderate distention, ALEN ss output, NG moderate output, colostomy pink and viable, no flatus yet - Urinary Catheter Management 1 Cath placed during this visit: yes Reason for continuing: Other continuation reason Insertion date: 12/12/17 Assessment and Plan - Assessment (1) Diverticulitis of intestine with abscess Code(s): K57.80 - Diverticulitis of intestine, part unspecified, with perforation and abscess without bleeding Status: Acute - Plan POD 2 ex lap, sigmiod resection, ileocectomy. Stable post op. Bolus liter fluids. Start D51/2NS with Kcl. Cont IV antibiotics, ORAL AND MAXILLOFACIAL SURGERY. Protonix, lovenox. Cont samuel enrique, alen Await return of bowel function. She will likely be here for 5 days or so post op.
[2017-12-14] MEDS: Potassium Chlor 10 mEq Premix 10 MEQ/100 ML PIGGYBACK IV.SIG SCH ×2 (11:10→12:37)
[2017-12-14] MEDS ORDERED: KCL 30 mEq/D5W/NaCl 0.45% Inj 1,000 ML IV.CONT SCH (12:00)
[2017-12-14] MEDS: Enoxaparin Inj 40 MG/0.4 ML Syringe SQ SCH (13:58)
--- NOTE | 2017-12-14 16:19 | P.DIET ---
Nutritional Evaluation Type of nutrition evaluation: initial Nutrition consult regarding: TPN/PPN ([facility] for TPN/PPN) Subjective Subjective Comments: Pt is currently NPO w/ NGT to suction. She has basically been NPO since 12/06. Objective - Diagnosis Perforated Bowel, Diverticulitis - Objective % IBW: 132 (QJK=221#) Body Weight Used for Calculations: IBW (56.8kg) Energy Needs - Lower Range (kCal/kg): 25 Energy Needs - Upper Range (kCal/kg): 30 Lower Limit kCal/kg (kCals): 1,420 Upper Limit kCal/kg (kCals): 1,704 Lower Limit Protein Factor (Grams per Kg): 1.1 Upper Limit Protein Factor (Grams per Kg): 1.4 Lower Protein Needs (Protein): 62 Upper Protein Needs (Protein): 80 Dietitian Reviewed in Medical Record: Current diet, Curent medications, Intake & Output, Labs, Medical history, TPN/PPN Diet Order: NPO Objective Comments: Meds: Protonix, Simethicone Labs: K 3.4 s/p sigmoid resection w/ end colostomy and ileocecectomy (12/12) Assessment Assessment: Pt admitted for perforated bowel and diverticulitis. Pt is s/p sigmoid resection w/ end colostomy and ileocecectomy. [facility] [place], current order reviewed. To better meets pts PN requirements, recommend Clinimix E 5/25 @ 60mls/hr x 24hrs w/ 20% IV lipids @ 10mls/hr x 24hrs. This regimen will provide the pt 1440mls fluid, 72g PRO, 2012kcals (w/ lipids), and GIR of 3.3. Recommend obtaining triglyceride level and monitor weekly while on TPN. Since , pt has been basically NPO except from dinner on 12/10 until 12/12 when pt was on full liquids. She is at high nutritional r/t recent sx w/ colostomy and the need for TPN. Dietitian following. Recommendations: 1. Recommend Clinimix E 5/25 @ 60mls/hr w/ 20% IV lipids @ 10mls/hr x 24hrs. 2. Recommend obtaining a triglyceride level and monitoring weekly while on TPN. Dietitian to Monitor: Lab values, Electrolytes, Intake & Output, TPN/PPN tolerance, Weight change, Diet advancement, Medical course
[2017-12-14] MEDS: Potassium Chloride Inj 30 MEQ in Dextrose 5%/NaCl 0.45% Inj 1,000 ML IV.SIG SCH (17:17)
[2017-12-14] MEDS ORDERED: Heparin Central Flush 100 UNIT/ML 5 ML Vial IV.FLUSH PRN (19:45)
[2017-12-14] MEDS ORDERED: [UNRECOGNIZED DRUG - OTHER] IV.CENTRAL SCH (20:00)
[2017-12-14] MEDS ORDERED: MULTIVITAMIN IV.CENTRAL SCH ×2 (20:00)
[2017-12-14] MEDS ORDERED: FOLIC ACID IV.CENTRAL SCH ×2 (20:00)
[2017-12-14] MEDS ORDERED: [UNRECOGNIZED DRUG - OTHER] IV.CENTRAL SCH (20:00)
--- NOTE | 2017-12-14 20:24 | P.PNWCN ---
Wound Care Nurse Consult Description: Patient seen today on for new ostomy teaching Communicated with: RN Jen, patient, patient's daughter and friend Recommendation: Empty pouch when 1/3 to 1/2 full, monitor stoma for color and output. Change ostomy appliance every 5 to 7 days or PRN if leaking occurs. Bowel Diversion Stoma - Bowel Stoma Left Lower Abdomen Stoma Appearance: Beefy Red (Letts in color) Loop Supporting Berto: No Collection Device: Two-piece Drainage Description: Blood-Tinged Mariah-Stomal Surrounding Tissue Sensation Description: No Symptoms - Additional Information Additional Information: Patient seen on for new ostomy teaching s/p sigmoid resection with end colostomy. Daughter and friend in the room at the bedside during patient teaching. Assessed stoma with dry intact two piece ostomy appliance in place appears to be 2 1/4 size. Stoma measures ~1 1/8 inches or ~29 mm in diameter and appears pink in color. Stoma is not entirely visualized due to drainage and appliance in place. Small amount of sero-sanguinous drainage is noted in pouch today. Patient's daughter, friend and patient were educated on stoma appearance , when to change ostomy appliance, and to empty pouch when 1/3 to 1/2 full. Colostomy education kit left in room.
[2017-12-15] MEDS: Ketorolac Inj 30 MG/ML (IVP) Vial IV.PUSH SCH ×4 (00:23→18:06)
[2017-12-15] MEDS: Piperacil/Tazo 3.375 GM Premix 50 ML IV.SIG SCH ×4 (03:15→23:15)
[2017-12-15] MEDS: Potassium Chloride Inj 30 MEQ in Dextrose 5%/NaCl 0.45% Inj 1,000 ML IV.SIG SCH ×2 (03:15→16:27)
[2017-12-15] MEDS: Atenolol 50 MG Tablet PO SCH (08:21)
[2017-12-15] MEDS: Heparin Central Flush 100 UNIT/ML 5 ML Vial IV.FLUSH SCH (08:21)
[2017-12-15] MEDS: Pantoprazole Inj 40 MG Vial IV.PUSH SCH (08:22)
[2017-12-15] MEDS ORDERED: Dextrose 50% in Water 50 ML Vial IV.PUSH PRN (09:43)
--- NOTE | 2017-12-15 09:53 | P.PNIM ---
Subjective Interval history: Follow up: perforated bowel, diverticulitis patient is S/P Exp/Diagnostic Laparoscopy (12/12/17) with Dr. Mckeon - sigmoid resection with end colostomy - abscess drainage - Ileocecostomy Patient offers no new concerns Physical Exam Vital signs: Vital Signs 12/14/17 12:00 12/14/17 20:00 12/15/17 08:00 Temperature 98.0 F 97.4 F L 98.9 F Pulse Rate 86 82 86 Respiratory Rate 16 18 16 Blood Pressure 121/66 136/65 107/56 L Pulse Oximetry 96 95 94 L Intake & Output 12/14/17 12/15/17 12/15/17 18:59 06:59 18:59 Intake Total 1450 / 1450 1065 / 1065 Output Total 540 / 540 1800 / 1800 Balance 910 / 910 -735 / -735 Intake: IV 1450 / 1450 1065 / 1065 LR 1000 mL Inj 1,000 ML @ Wide 1000 / 1000 Open IV.SIG BOLUS ONE Rx#: [id number] Zosyn 3.375 GM Premix 50 ML @ 150 / 150 50 / 50 100 mls/hr IV.SIG Q6H HATTIE Rx#: [id number] KCl 10 mEq Premix Inj 10 meq In 200 / 200 100 ml @ 100 mls/hr IV.SIG Q1H HATTIE Rx#:[id number] KCl Inj 30 MEQ In D5W/1/2 NS 1015 / 1015 Inj 1,000 ML @ 84 mls/hr IV.SIG .Q12H5M HATTIE Rx#:[id number] Oral 0 / 0 Output: Urine 300 / 300 Urine Amount (Catheter) 1100 / 1100 1 1100 / 1100 Stool Amount (Stoma) 10 / 10 Left Lower Abdomen 10 / 10 Gastric Drainage 150 / 150 500 / 500 Left Nare 150 / 150 500 / 500 Wound Drainage 90 / 90 190 / 190 # 1 Abdomen Vahid 90 / 90 190 / 190 Other: # Bowel Movements 0 Narrative: GENERAL: NAD, NGT in place CARDIOVASCULAR: Regular rate and rhythm RESPIRATORY: Clear to auscultation. Breath sounds equal bilaterally. GASTROINTESTINAL: Abdomen soft, abd bandage c/d/i, soft, no bowel sounds yet. colostomy noted without stool or gas in bag yet, CHRISTIAN drain at RLQ with sanguinous drainage MUSCULOSKELETAL: Extremities without clubbing, cyanosis, or edema. NEURO: Alert & Oriented x4 to person, place, time, situation. Moves all ext x4 - Urinary Catheter Management 1 Cath placed during this visit: yes Reason for continuing: Hourly intake/output Insertion date: 12/12/17 Results - Labs CBC & Chem 7: 12/15/17 10:01 12/15/17 10:01 Laboratory Results - last 24 hr 12/14/17 12/15/17 20:57 08:15 POC Glucose 104 263 H Microbiology 12/12/17 15:20 Abscess - Abdominal Gram Stain - Final 12/12/17 15:20 Abscess - Abdominal Wound Culture - Final Pat albicans Assessment and Plan - Assessment (1) Perforated bowel Code(s): K63.1 - Perforation of intestine (nontraumatic) Status: Acute Plan: Perforated bowel Diverticulitis - comgmt with General Surgery and Interventional Radiology - Pt is a 57 y/o female with HTN, hx of breast cancer, and hx of melanoma. - She [place] [facility] [place] with a 5-day history of abdominal pain, N/V. She initially presented to [place] ED on 12/01/[address] Abd/ pelvis which revealed acute sigmoid diverticulitis, no perforation or abscess, and no obstruction. Pt was started on oral antibiotics with Cipro and Flagyl BID x 14 days and discharged to home. She states that she was having difficulty keeping down antibiotics. On Thursday, symptoms worsened and she had increased emesis and she was unable to keep down fluids or medication. She presented back to the emergency room on 12/06/17 for re-evaluation. - Noncontrasted CT abd/pelvis (12/06) --> significant free intraperitoneal air collected under the diaphragm and in the root of mesentery. - Pt has had intermittent fevers and chills prior to admission. - Pt has been having liquid bowel movements, Hemoccult negative. - Blood cultures (12/06) with NGTD - WBC 22.9 (12/13) -> 22.6 (12/14) - Zosyn (12/07 - present) - Zofran PRN/ Reglan PRN - D51/2ND D5W with KCL - Afebrile since 12AM 12/09, WBC 12K (12/10) - CT a/p (12/09) - Findings of abscess related to diverticulitis superior to the dome of the bladder. This is accessible to drainage. - Developing fluid collection and abscess at the root of mesentery not accessible to percutaneous drainage - Findings of small bowel ileus with wall thickening characteristic of inflammatory or infectious process. - Pt underwent CT guided abscess drainage by IR (12/09) - removal of 20cc yellow cloudy fluid - abscess fluid gram stain (12/11) --> no WBC, no organism - abscess culture (12/11) --> NO growth - Exp/Diagnostic Laparoscopy (12/12/17) with Dr. Mckeon - sigmoid resection with end colostomy - abscess drainage - Ileocecostomy - Intraoperative Wound Cx (12/12/17) - gram stain --> NO WBC, no organisms - would Cx --> pending - Case d/w Dr. 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 I reviewed and agree with the findings presented. I attest that I had a [id number] encounter with the patient on the same day, and personally performed and documented my assessment and findings in the medical record. (2) Diverticulitis Code(s): K57.92 - Diverticulitis of intestine, part unspecified, without perforation or abscess without bleeding Status: Acute (3) HTN (hypertension) Code(s): I10 - Essential (primary) hypertension Status: Chronic
[2017-12-15 10:44] LABS: Baso # (Auto) 0.1 th/mm3 (0.0-0.2); Baso % (Auto) 0.4 % (0.0-2.0); Eos # (Auto) 0.3 th/mm3 (0.0-0.4); Eos % (Auto) 2.1 % (0.0-4.0); Hematocrit 26.4 % (35.0-46.0); Hemoglobin 8.5 gm/dL (11.6-15.3); Lymph # (Auto) 1.2 th/mm3 (1.0-4.8); Mean Corpuscular HGB Conc 32.4 % (32.0-36.0); Mean Corpuscular Hemoglobin 27.8 pg (27.0-34.0); Mean Corpuscular Volume 85.8 fL (80.0-100.0); Mean Platelet Volume 7.8 fL (7.0-11.0); Mono # (Auto) 1.2 th/mm3 (0.0-0.9); Mono % (Auto) 8.9 % (0.0-8.0); Neut # (Auto) 10.8 th/mm3 (1.8-7.7); Neut % (Auto) 79.6 % (16.0-70.0); Platelet Count 528 th/mm3 (150-450); Red Blood Count 3.07 mil/mm3 (4.00-5.30); Red Cell Distribution Width 13.8 % (11.6-17.2); White Blood Count 13.5 th/mm3 (4.0-11.0)
[2017-12-15 11:03] LABS: Anion Gap 5 meq/L (5-15); Blood Urea Nitrogen 11 mg/dL (7-18); Calcium 7.4 mg/dL (8.5-10.1); Carbon Dioxide 33.7 meq/L (21.0-32.0); Chloride 102 meq/L (98-107); Glomerular Filtration Rate Greater Than 89 mL/min (>89); Glucose,Random 129 mg/dL (74-106); Potassium 3.9 meq/L (3.5-5.1)
[2017-12-15 11:04] LABS: Sodium 141 meq/L (136-145)
--- NOTE | 2017-12-15 11:05 | P.PNGS ---
Subjective Interval history: Small amt flatus from colostomy. Feels weak. Physical Exam Vital signs: Vital Signs 12/14/17 12:00 12/14/17 20:00 12/15/17 08:00 Temperature 98.0 F 97.4 F L 98.9 F Pulse Rate 86 82 86 Respiratory Rate 16 18 16 Blood Pressure 121/66 136/65 107/56 L Pulse Oximetry 96 95 94 L Intake & Output 12/14/17 12/15/17 12/15/17 18:59 06:59 18:59 Intake Total 1450 / 1450 1065 / 1065 333 / 333 Output Total 540 / 540 1800 / 1800 10 / 10 Balance 910 / 910 -735 / -735 323 / 323 Intake: IV 1450 / 1450 1065 / 1065 LR 1000 mL Inj 1,000 ML @ Wide 1000 / 1000 Open IV.SIG BOLUS ONE Rx#: [id number] Zosyn 3.375 GM Premix 50 ML @ 150 / 150 50 / 50 100 mls/hr IV.SIG Q6H HATTIE Rx#: [id number] KCl 10 mEq Premix Inj 10 meq In 200 / 200 100 ml @ 100 mls/hr IV.SIG Q1H HATTIE Rx#:[id number] KCl Inj 30 MEQ In D5W/1/2 NS 1015 / 1015 Inj 1,000 ML @ 84 mls/hr IV.SIG .Q12H5M HATTIE Rx#:[id number] Oral 0 / 0 Tube Feeding 249 / 249 Other 84 / 84 Output: Urine 300 / 300 Urine Amount (Catheter) 1100 / 1100 1 1100 / 1100 Stool Amount (Stoma) 10 10 10 / 10 Left Lower Abdomen 10 10 10 / 10 Gastric Drainage 150 / 150 500 / 500 Left Nare 150 / 150 500 / 500 Wound Drainage 90 / 90 190 / 190 # 1 Abdomen Vahid 90 / 90 190 / 190 Other: # Bowel Movements 0 Narrative: NAD NG with bilious output Abd: incisional vac in place, ALEN ss, colostomy pink with small amt of flatus. - Urinary Catheter Management 1 Cath placed during this visit: yes Reason for continuing: Hourly intake/output Insertion date: 12/12/17 Assessment and Plan - Plan POD 3 ex lap, sigmiod resection, ileocectomy. Stable post op. 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 Protonix, lovenox. D/c enrique. Cont ng, alen Await return of bowel function.
[2017-12-15 11:23] LABS: Total Protein 5.2 g/dL (6.4-8.2)
[2017-12-15] MEDS: Insulin NovoLOG Aspart Correctional Sugar Inj SQ SCH ×2 (12:38→18:05)
--- NOTE | 2017-12-15 14:33 | P.PNWCN ---
Wound Care Nurse Consult Description: Consult for New Ostomy Teaching per JESSE Henry Communicated with: Patient Patient significant other at bedside RN Recommendation: Empty pouch when 1/3 to 1/2 full. Monitor stoma for color and output. Change ostomy appliance every 5 to 7 days or PRN if leaking occurs. Additional information: Patient seen on [place] for ostomy assessment, teaching, and demonstration of appliances available. Bowel Diversion Stoma - Bowel Stoma Left Lower Abdomen Stoma Appearance: Flush to Skin, Round (red, moist) Collection Device: Two-piece, Moldable Wafer Drainage Description: Blood-Tinged Wafer Size: 2 1/4 Moldable Mariah-Stomal Skin Appearance: Intact - Additional Information Additional Information: Patient seen on for new ostomy teaching. Stoma with intact two piece ostomy appliance in place appears to be 2 1/4 size. Stoma is moist and pink, functioning with flatus only at this time. Small amount of sero-sanguinous drainage is noted in pouch today. Patient educated on stoma appearance, when to change ostomy appliance, and how to empty pouch when 1/3 to 1/2 full. Colostomy education kit left in room.
[2017-12-15] MEDS: HYDROmorphone PCA Inj 6 MG/30 ML PCA.VIAL PCA PRN (14:35)
[2017-12-15] MEDS: Enoxaparin Inj 40 MG/0.4 ML Syringe SQ SCH (16:25)
[2017-12-15] MEDS: [UNRECOGNIZED DRUG - OTHER] IV.CENTRAL SCH (20:53)
[2017-12-15] MEDS: FOLIC ACID IV.CENTRAL SCH (20:53)
[2017-12-15] MEDS: MULTIVITAMIN IV.CENTRAL SCH (20:53)
[2017-12-16] MEDS: Ketorolac Inj 30 MG/ML (IVP) Vial IV.PUSH SCH ×4 (00:20→18:43)
[2017-12-16] MEDS: Piperacil/Tazo 3.375 GM Premix 50 ML IV.SIG SCH ×4 (03:13→21:53)
[2017-12-16 06:39] LABS: Baso # (Auto) 0.1 th/mm3 (0.0-0.2); Baso % (Auto) 0.6 % (0.0-2.0); Eos # (Auto) 0.3 th/mm3 (0.0-0.4); Eos % (Auto) 3.1 % (0.0-4.0); Hemoglobin 7.6 gm/dL (11.6-15.3); Lymph # (Auto) 1.1 th/mm3 (1.0-4.8); Lymph % (Auto) 11.9 % (9.0-44.0); Mean Corpuscular Hemoglobin 29.2 pg (27.0-34.0); Mean Corpuscular Volume 103.9 fL (80.0-100.0); Mean Platelet Volume 7.8 fL (7.0-11.0); Mono # (Auto) 0.8 th/mm3 (0.0-0.9); Mono % (Auto) 8.7 % (0.0-8.0); Neut # (Auto) 7.2 th/mm3 (1.8-7.7); Neut % (Auto) 75.7 % (16.0-70.0); Platelet Count 434 th/mm3 (150-450); Red Cell Distribution Width 15.5 % (11.6-17.2); White Blood Count 9.5 th/mm3 (4.0-11.0)
[2017-12-16 06:40] LABS: Mean Corpuscular HGB Conc 28.1 % (32.0-36.0)
[2017-12-16] MEDS: Insulin NovoLOG Aspart Correctional Sugar Inj SQ SCH ×5 (08:35→22:28)
[2017-12-16] MEDS: FOLIC ACID IV.CENTRAL SCH ×2 (08:48→22:05)
[2017-12-16] MEDS: [UNRECOGNIZED DRUG - OTHER] IV.CENTRAL SCH ×2 (08:48→22:05)
[2017-12-16] MEDS: MULTIVITAMIN IV.CENTRAL SCH ×2 (08:48→22:05)
[2017-12-16] MEDS: Heparin Central Flush 100 UNIT/ML 5 ML Vial IV.FLUSH SCH (08:48)
[2017-12-16] MEDS: Atenolol 50 MG Tablet PO SCH (08:48)
[2017-12-16] MEDS: Pantoprazole Inj 40 MG Vial IV.PUSH SCH (08:49)
[2017-12-16 10:13] LABS: Anion Gap 9 meq/L (5-15); Blood Urea Nitrogen 10 mg/dL (7-18); Calcium 7.9 mg/dL (8.5-10.1); Carbon Dioxide 26.8 meq/L (21.0-32.0); Chloride 105 meq/L (98-107); Glomerular Filtration Rate Greater Than 89 mL/min (>89); Glucose,Random 180 mg/dL (74-106); Potassium 3.7 meq/L (3.5-5.1); Sodium 141 meq/L (136-145)
[2017-12-16] MEDS: Potassium Chloride Inj 30 MEQ in Dextrose 5%/NaCl 0.45% Inj 1,000 ML IV.SIG SCH ×2 (11:24→16:57)
--- NOTE | 2017-12-16 11:55 | P.PNIM ---
Subjective Interval history: Pt complains of discomfort related to the NGT. Pt with NGT to LIWS currently She has been able to ambulate with assistance to the bathroom Some brown liquid in the colostomy bag this morning, small amount of flatus noted Abd pain is relatively unchanged today compared to yesterday Physical Exam Vital signs: Vital Signs 12/15/17 12:25 12/15/17 16:20 12/15/17 20:00 Temperature 98.3 F 97.7 F 99.9 F H Pulse Rate 84 77 82 Respiratory Rate 17 16 18 Blood Pressure 140/76 135/66 152/72 H Pulse Oximetry 93 L 96 95 12/16/17 00:00 12/16/17 08:00 Temperature 98.7 F 98.0 F Pulse Rate 87 82 Respiratory Rate 18 18 Blood Pressure 132/75 151/80 H Pulse Oximetry 95 95 Intake & Output 12/15/17 12/16/17 12/16/17 18:59 06:59 18:59 Intake Total 433 / 433 100 / 100 Output Total 240 / 240 15 Balance 423 / 423 -140 / -140 -15 / -15 Intake: IV 100 / 100 100 / 100 Zosyn 3.375 GM Premix 50 ML @ 100 / 100 100 / 100 100 mls/hr IV.SIG Q6H HATTIE Rx#: [id number] Oral 0 / 0 Tube Feeding 249 / 249 Other 84 / Output: Stool Amount (Stoma) 15 Left Lower Abdomen 15 15 Gastric Drainage 150 / 150 Left Nare 150 / 150 Wound Drainage 90 / 90 0 / 0 # 1 Abdomen Vahid 0 / 0 Abdomen 90 / 90 Other: # Voids 3 2 # Bowel Movements 0 Narrative: GENERAL: NAD, NGT in place CARDIO: Regular RESP: CTA bilaterally. ABD: Minimal BS, soft, abd bandage c/d/i. Colostomy noted with some liquid in bag, CHRISTIAN drain at RLQ with sanguinous drainage EXT: Extremities without clubbing, cyanosis, or edema. - Urinary Catheter Management 1 Cath placed during this visit: yes Reason for continuing: Hourly intake/output Insertion date: 12/12/17 Results - Labs CBC & Chem 7: 12/16/17 09:33 12/16/17 09:33 Laboratory Results - last 24 hr 12/15/17 12/15/17 12/15/17 12:22 17:07 21:22 WBC RBC Hgb Hct MCV MCH MCHC RDW Plt Count MPV Neut % (Auto) Lymph % (Auto) [place] % (Auto) Eos % (Auto) Baso % (Auto) Neut # (Auto) Lymph # (Auto) [place] # (Auto) Eos # (Auto) Baso # (Auto) WBC Differential Differential Comment Sodium Potassium Chloride Carbon Dioxide Anion Gap BUN Creatinine Estimated GFR POC Glucose 197 H 159 H 160 H Random Glucose Calcium 12/16/17 12/16/17 12/16/17 06:00 07:16 09:33 WBC 9.5 RBC 2.60 L Hgb 7.6 L Hct 27.0 L MCV 103.9 H D MCH 29.2 MCHC 28.1 L RDW 15.5 Plt Count 434 MPV 7.8 Neut % (Auto) 75.7 H Lymph % (Auto) 11.9 [place] % (Auto) 8.7 H Eos % (Auto) 3.1 Baso % (Auto) 0.6 Neut # (Auto) 7.2 Lymph # (Auto) 1.1 [place] # (Auto) 0.8 Eos # (Auto) 0.3 Baso # (Auto) 0.1 WBC Differential . Differential Comment Auto diff final Sodium Potassium Chloride Carbon Dioxide Anion Gap BUN Creatinine Estimated GFR POC Glucose 215 H Random Glucose Calcium 12/16/17 09:33 WBC RBC Hgb Hct MCV MCH MCHC RDW Plt Count MPV Neut % (Auto) Lymph % (Auto) [place] % (Auto) Eos % (Auto) Baso % (Auto) Neut # (Auto) Lymph # (Auto) [place] # (Auto) Eos # (Auto) Baso # (Auto) WBC Differential Differential Comment Sodium 141 Potassium 3.7 Chloride 105 Carbon Dioxide 26.8 Anion Gap 9 BUN 10 Creatinine 0.46 L Estimated GFR Greater than 89 POC Glucose Random Glucose 180 H Calcium 7.9 L Microbiology 12/14/17 13:55 Blood - Line Aerobic Blood Culture - Preliminary No growth in 2 days 12/14/17 13:55 Blood - Line Anaerobic Blood Culture - Preliminary No growth in 2 days 12/14/17 14:10 Blood - Line Aerobic Blood Culture - Preliminary No growth in 2 days 12/14/17 14:10 Blood - Line Anaerobic Blood Culture - Preliminary No growth in 2 days - Imaging Abdomen/Pelvis CT 12/06/17 17:29 CONCLUSION: 1. Significant free intraperitoneal air collected under the diaphragm and in the root of mesentery. Most likely source is pelvis, root of the mesentery with associated diverticulitis Abdomen/Pelvis CT 12/09/17 00:00 CONCLUSION: Findings of abscess related to diverticulitis superior to the dome of the bladder. This is accessible to drainage. Developing fluid collection and abscess at the root of mesentery not accessible to percutaneous drainage Findings of small bowel ileus with wall thickening characteristic of inflammatory or infectious process. Abscess Drainage CT 12/09/17 00:00 CONCLUSION: 1. Uncomplicated CT guided drainage. Abdomen X-Ray 12/11/17 00:00 CONCLUSION: Ileus. Drain overlying pelvis. Assessment and Plan - Assessment (1) Perforated bowel Code(s): K63.1 - Perforation of intestine (nontraumatic) Status: Acute Plan: Perforated bowel Diverticulitis - comgmt with General Surgery and Interventional Radiology - Pt is a 57 y/o female with HTN, hx of breast cancer, and hx of melanoma. - [place] [facility] [place] with a 5-day history of abdominal pain, N/V. She initially presented to [place] ED on 12/01/[address] Abd/ pelvis which revealed acute sigmoid diverticulitis, no perforation or abscess, and no obstruction. Pt was started on oral antibiotics with Cipro and Flagyl BID x 14 days and discharged to home. She states that she was having difficulty keeping down antibiotics. On Thursday, symptoms worsened and she had increased emesis and she was unable to keep down fluids or medication. She presented back to the emergency room on 12/06/17 for re-evaluation. - Noncontrasted CT abd/pelvis (12/06) --> significant free intraperitoneal air collected under the diaphragm and in the root of mesentery. - Pt has had intermittent fevers and chills prior to admission. - Pt has been having liquid bowel movements, Hemoccult negative. - Blood cultures (12/06) with NGTD - WBC 22.9 (8/5) -> 22.6 (8/6) --> 13.5 (8/7) --> 9.5 (8/8) - Zosyn (12/07 - present) - Zofran PRN/ Reglan PRN - D51/2NS D5W with KCL - Repeat CT A/P (12/09) - Findings of abscess related to diverticulitis superior to the dome of the bladder. This is accessible to drainage. - Developing fluid collection and abscess at the root of mesentery not accessible to percutaneous drainage - Findings of small bowel ileus with wall thickening characteristic of inflammatory or infectious process. - Pt underwent CT guided abscess drainage by IR (12/09) - removal of 20cc yellow cloudy fluid - abscess fluid gram stain (12/11) --> no WBC, no organism - abscess culture (12/11) --> NO growth - Exp/Diagnostic Laparoscopy (12/12/17) with Dr. Mckeon - sigmoid resection with end colostomy - abscess drainage - Ileocecostomy - Intraoperative Wound Cx (12/12/17) - gram stain --> NO WBC, no organisms - would Cx --> Pat Albicans - Case d/w Dr. 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 I reviewed and agree with the findings presented. I attest that I had a [id number] encounter with the patient on the same day, and personally performed and documented my assessment and findings in the medical record. add PT. monitor hgb and transfuse if less 7 or symptomatic. cont TPN. start diet per gen surg. (2) Diverticulitis Code(s): K57.92 - Diverticulitis of intestine, part unspecified, without perforation or abscess without bleeding Status: Acute (3) HTN (hypertension) Code(s): I10 - Essential (primary) hypertension Status: Chronic
--- NOTE | 2017-12-16 12:45 | P.PNGS ---
Subjective Interval history: NO flatus in bag. Has ambulated. Physical Exam Vital signs: Vital Signs 12/15/17 16:20 12/15/17 20:00 12/16/17 00:00 Temperature 97.7 F 99.9 F H 98.7 F Pulse Rate 77 82 87 Respiratory Rate 16 18 18 Blood Pressure 135/66 152/72 H 132/75 Pulse Oximetry 96 95 95 12/16/17 08:00 Temperature 98.0 F Pulse Rate 82 Respiratory Rate 18 Blood Pressure 151/80 H Pulse Oximetry 95 Intake & Output 12/15/17 12/16/17 12/16/17 18:59 06:59 18:59 Intake Total 433 / 433 100 / 100 Output Total 240 / 240 15 Balance 423 / 423 -140 / -140 -15 / -15 Intake: IV 100 / 100 100 / 100 Zosyn 3.375 GM Premix 50 ML @ 100 / 100 100 / 100 100 mls/hr IV.SIG Q6H HATTIE Rx#: [id number] Oral 0 / 0 Tube Feeding 249 / 249 Other 84 / 84 Output: Stool Amount (Stoma) 15 / 15 Left Lower Abdomen 15 15 Gastric Drainage 150 / 150 Left Nare 150 / 150 Wound Drainage 90 / 90 0 / 0 # 1 Abdomen Vahid 0 / 0 Abdomen 90 / 90 Other: # Voids 3 2 # Bowel Movements 0 Narrative: NAD Abd: soft, post op ttp, ALEN ss, ng moderate output - Urinary Catheter Management 1 Cath placed during this visit: yes Reason for continuing: Hourly intake/output Insertion date: 12/12/17 Assessment and Plan - Plan POD 4 ex lap, sigmiod resection, ileocectomy. Stable post op. 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 Protonix, lovenox. Cont ng, alen Await return of bowel function. Start reglan. Clamp tube and try clears.
[2017-12-16] MEDS: Enoxaparin Inj 40 MG/0.4 ML Syringe SQ SCH (16:55)
--- NOTE | 2017-12-16 17:41 | P.PNWCN ---
Wound Care Nurse Consult Description: Consult for New Ostomy Teaching per JESSE Henry Recommendation: Empty pouch when 1/3 to 1/2 full. Monitor stoma for color and output. Change ostomy appliance every 5 to 7 days or PRN if leaking occurs. Bowel Diversion Stoma - Bowel Stoma Left Lower Abdomen Stoma Appearance: Flush to Skin, Oval Loop Supporting Berto: No Collection Device: Two-piece, Moldable Wafer Drainage Description: Blood-Tinged (dark red drainage) Wafer Size: 1 3/4 Moldable 45mm Stoma Care: Pouch and Wafer Changed, Skin Care Mariah-Stomal Skin Appearance: Intact Mariah-Stomal Surrounding Tissue Sensation Description: No Symptoms - Additional Information Additional Information: Patient seen on for new ostomy teaching. Two piece colostomy appliance in place presents with erosion beyond the flange.Removed colostomy appliance in place to reveal stoma that is moist and pink. Stoma is oval in shape and flush with the skin. ~5ml of dark red effluent was drainage from pouch, before removing two piece appliance.Small amount of flatus is also present.Peristomal skin was cleansed with water and wash cloth and patted dry. Skin barrier film spray was applied to peristomal skin and allowed to dry, before molding 1/4 wafer to size and applying ring of stoma paste to wafer. Applied wafer in place over stoma with attached adaptor. Pouch was then snapped in to place.Patient wants daughter in room for continued ostomy teaching. Per patient she will be there in the afternoon.
[2017-12-17] MEDS: Ketorolac Inj 30 MG/ML (IVP) Vial IV.PUSH SCH ×3 (00:06→13:14)
[2017-12-17 04:27] LABS: Baso # (Auto) 0.1 th/mm3 (0.0-0.2); Baso % (Auto) 1.3 % (0.0-2.0); Eos # (Auto) 0.4 th/mm3 (0.0-0.4); Eos % (Auto) 4.2 % (0.0-4.0); Hematocrit 26.7 % (35.0-46.0); Hemoglobin 8.9 gm/dL (11.6-15.3); Lymph # (Auto) 1.5 th/mm3 (1.0-4.8); Lymph % (Auto) 14.7 % (9.0-44.0); Mean Corpuscular HGB Conc 33.5 % (32.0-36.0); Mean Corpuscular Hemoglobin 33.4 pg (27.0-34.0); Mean Corpuscular Volume 99.7 fL (80.0-100.0); Mean Platelet Volume 7.7 fL (7.0-11.0); Mono % (Auto) 9.9 % (0.0-8.0); Neut % (Auto) 69.9 % (16.0-70.0); Platelet Count 483 th/mm3 (150-450); Red Blood Count 2.67 mil/mm3 (4.00-5.30); Red Cell Distribution Width 15.2 % (11.6-17.2)
[2017-12-17] MEDS: Piperacil/Tazo 3.375 GM Premix 50 ML IV.SIG SCH ×4 (05:49→21:46)
[2017-12-17 08:27] LABS: Anion Gap 7 meq/L (5-15); Blood Urea Nitrogen 11 mg/dL (7-18); Calcium 7.8 mg/dL (8.5-10.1); Carbon Dioxide 29.9 meq/L (21.0-32.0); Chloride 105 meq/L (98-107); Glomerular Filtration Rate Greater Than 89 mL/min (>89); Glucose,Random 201 mg/dL (74-106); Potassium 3.7 meq/L (3.5-5.1); Sodium 142 meq/L (136-145)
[2017-12-17] MEDS: Pantoprazole Inj 40 MG Vial IV.PUSH SCH (08:47)
[2017-12-17] MEDS: Atenolol 50 MG Tablet PO SCH (08:47)
[2017-12-17] MEDS: Heparin Central Flush 100 UNIT/ML 5 ML Vial IV.FLUSH SCH (08:47)
[2017-12-17] MEDS: Insulin NovoLOG Aspart Correctional Sugar Inj SQ SCH ×4 (08:48→21:59)
--- NOTE | 2017-12-17 09:40 | P.PNIM ---
Subjective Interval history: Pt has NGT clamped and is tolerating small amount os clear liquids She has been having gas out of the ostomy but no stooling or liquids output since yesterday Pt reports having a low grade fever last night but there was not one documented. She is feeling somewhat better today Physical Exam Vital signs: Vital Signs 12/16/17 12:00 12/16/17 20:36 12/17/17 00:04 Temperature 97.8 F 98.3 F 98.6 F Pulse Rate 87 81 85 Respiratory Rate 20 18 17 Blood Pressure 158/76 H 163/77 H 126/68 Pulse Oximetry 96 93 L 96 12/17/17 04:42 Temperature 98.1 F Pulse Rate 89 Respiratory Rate 17 Blood Pressure 131/67 Pulse Oximetry 95 Intake & Output 12/16/17 12/17/17 12/17/17 18:59 06:59 18:59 Intake Total 100 / 100 1055.1 / 1055.1 Output Total 15 1110 / 1110 Balance 85 / 85 -54.9 / -54.9 Weight 75 kg Intake: IV 100 / 100 1055.1 / 1055.1 Folvite Inj 0.5 MG MVI-12 Inj 5 1005.1 / 1005.1 ML In Clinimix E 4.25%/D25W Inj 1,000 ML @ 83 mls/hr IV. CENTRAL Q12H HATTIE Rx#:[id number] Zosyn 3.375 GM Premix 50 ML @ 100 / 100 50 / 50 100 mls/hr IV.SIG Q6H HATTIE Rx#: [id number] Output: Urine 1030 / 1030 Stool 0 / 0 Stool Amount (Stoma) 15 / Left Lower Abdomen 15 / 15 Wound Drainage 0 / 0 80 / 80 # 1 Abdomen Vahid 0 / 0 Abdomen 80 / 80 - Urinary Catheter Management 1 Cath placed during this visit: yes Reason for continuing: Hourly intake/output Insertion date: 12/12/17 Results - Labs CBC & Chem 7: 12/17/17 04:00 12/17/17 06:50 Laboratory Results - last 24 hr 12/16/17 12/16/17 12/16/17 09:33 09:33 12:42 WBC 9.5 RBC 2.60 L Hgb 7.6 L Hct 27.0 L MCV 103.9 H D MCH 29.2 MCHC 28.1 L RDW 15.5 Plt Count 434 MPV 7.8 Neut % (Auto) 75.7 H Lymph % (Auto) 11.9 [place] % (Auto) 8.7 H Eos % (Auto) 3.1 Baso % (Auto) 0.6 Neut # (Auto) 7.2 Lymph # (Auto) 1.1 [place] # (Auto) 0.8 Eos # (Auto) 0.3 Baso # (Auto) 0.1 WBC Differential Differential Comment Auto diff final Sodium 141 Potassium 3.7 Chloride 105 Carbon Dioxide 26.8 Anion Gap 9 BUN 10 Creatinine 0.46 L Estimated GFR Greater than 89 POC Glucose 173 H Random Glucose 180 H Calcium 7.9 L 12/16/17 12/16/17 12/17/17 16:52 22:10 04:00 WBC 10.0 RBC 2.67 L Hgb 8.9 L Hct 26.7 L MCV 99.7 D MCH 33.4 MCHC 33.5 RDW 15.2 Plt Count 483 H MPV 7.7 Neut % (Auto) 69.9 Lymph % (Auto) 14.7 [place] % (Auto) 9.9 H Eos % (Auto) 4.2 H Baso % (Auto) 1.3 Neut # (Auto) 7.0 Lymph # (Auto) 1.5 [place] # (Auto) 1.0 H Eos # (Auto) 0.4 Baso # (Auto) 0.1 WBC Differential . Differential Comment Auto diff final Sodium Potassium Chloride Carbon Dioxide Anion Gap BUN Creatinine Estimated GFR POC Glucose 175 H 120 H Random Glucose Calcium 12/17/17 12/17/17 06:50 08:06 WBC RBC Hgb Hct MCV MCH MCHC RDW Plt Count MPV Neut % (Auto) Lymph % (Auto) [place] % (Auto) Eos % (Auto) Baso % (Auto) Neut # (Auto) Lymph # (Auto) [place] # (Auto) Eos # (Auto) Baso # (Auto) WBC Differential Differential Comment Sodium 142 Potassium 3.7 Chloride 105 Carbon Dioxide 29.9 Anion Gap 7 BUN 11 Creatinine 0.47 L Estimated GFR Greater than 89 POC Glucose 247 H Random Glucose 201 H Calcium 7.8 L Microbiology 12/14/17 13:55 Blood - Line Aerobic Blood Culture - Preliminary No growth in 2 days 12/14/17 13:55 Blood - Line Anaerobic Blood Culture - Preliminary No growth in 2 days 12/14/17 14:10 Blood - Line Aerobic Blood Culture - Preliminary No growth in 2 days 12/14/17 14:10 Blood - Line Anaerobic Blood Culture - Preliminary No growth in 2 days Assessment and Plan - Assessment (1) Perforated bowel Code(s): K63.1 - Perforation of intestine (nontraumatic) Status: Acute Plan: Perforated bowel Diverticulitis - comgmt with General Surgery and Interventional Radiology - Pt is a 57 y/o female with HTN, hx of breast cancer, and hx of melanoma. - She presented to the ED at [facility] [place] with a 5-day history of abdominal pain, N/V. She initially presented to [facility] ED on 12/01/[address] Abd/ pelvis which revealed acute sigmoid diverticulitis, no perforation or abscess, and no obstruction. Pt was started on oral antibiotics with Cipro and Flagyl BID x 14 days and discharged to home. She states that she was having difficulty keeping down antibiotics. On Thursday, symptoms worsened and she had increased emesis and she was unable to keep down fluids or medication. She presented back to the emergency room on 12/06/17 for re-evaluation. - Noncontrasted CT abd/pelvis (12/06) --> significant free intraperitoneal air collected under the diaphragm and in the root of mesentery. - Pt has had intermittent fevers and chills prior to admission. - Pt has been having liquid bowel movements, Hemoccult negative. - Blood cultures (12/06) with NGTD - WBC 22.9 (8/5) -> 22.6 (8/6) --> 13.5 (8/7) --> 9.5 (8/8) --> 10.0 (8/9) - Hgb was trending down but is currently stable. - Zosyn (12/07 - present) - Zofran PRN/ Reglan PRN - D51/2NS D5W with KCL - Repeat CT A/P (12/09) - Findings of abscess related to diverticulitis superior to the dome of the bladder. This is accessible to drainage. - Developing fluid collection and abscess at the root of mesentery not accessible to percutaneous drainage - Findings of small bowel ileus with wall thickening characteristic of inflammatory or infectious process. - Pt underwent CT guided abscess drainage by IR (12/09) - removal of 20cc yellow cloudy fluid - abscess fluid gram stain (12/11) --> no WBC, no organism - abscess culture (12/11) --> NO growth - Exp/Diagnostic Laparoscopy (12/12/17) with Dr. Mckeon - sigmoid resection with end colostomy - abscess drainage - Ileocecostomy - Intraoperative Wound Cx (12/12/17) - gram stain --> NO WBC, no organisms - would Cx --> Pat Albicans - Case d/w Dr. Mckeon (12/13) - NPO with ice chips for comfort - NGT to LIWS - TPN started (12/14) via PICC line - glucose running high with TPN - ACCU checks ACHS with SSI coverage - NGT clamped on 12/16 and pt tolerating clear liquids in small amounts and with gas from the ostomy site. 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 I reviewed and agree with the findings presented. I attest that I had a [id number] encounter with the patient on the same day, and personally performed and documented my assessment and findings in the medical record. (2) Diverticulitis Code(s): K57.92 - Diverticulitis of intestine, part unspecified, without perforation or abscess without bleeding Status: Acute (3) HTN (hypertension) Code(s): I10 - Essential (primary) hypertension Status: Chronic
[2017-12-17] MEDS: [UNRECOGNIZED DRUG - OTHER] IV.CENTRAL SCH ×2 (13:00→21:45)
[2017-12-17] MEDS: FOLIC ACID IV.CENTRAL SCH ×2 (13:00→21:45)
[2017-12-17] MEDS: MULTIVITAMIN IV.CENTRAL SCH ×2 (13:00→21:45)
[2017-12-17] MEDS: Enoxaparin Inj 40 MG/0.4 ML Syringe SQ SCH (15:51)
--- NOTE | 2017-12-17 17:20 | P.PNGS ---
Subjective Interval history: Flatus and liquid stool in bag. No nausea. Eufemia clears. Only in pain when she gets up. Physical Exam Vital signs: Vital Signs 12/16/17 20:36 12/17/17 00:04 12/17/17 04:42 Temperature 98.3 F 98.6 F 98.1 F Pulse Rate 81 85 89 Respiratory Rate 18 17 17 Blood Pressure 163/77 H 126/68 131/67 Pulse Oximetry 93 L 96 95 12/17/17 08:00 12/17/17 12:00 Temperature 97.8 F 98.2 F Pulse Rate 83 84 Respiratory Rate 16 18 Blood Pressure 134/69 143/72 H Pulse Oximetry 96 98 Intake & Output 12/16/17 12/17/17 12/17/17 18:59 06:59 18:59 Intake Total 100 / 100 1105.1 / 1105.1 1055.1 / 1055.1 Output Total 1110 / 1110 Balance 85 / 85 -4.9 / -4.9 1055.1 / 1055.1 Weight 75 kg Intake: IV 100 / 100 1105.1 / 1105.1 1055.1 / 1055.1 Folvite Inj 0.5 MG MVI-12 Inj 5 1005.1 / 1005.1 1005.1 / 1005.1 ML In Clinimix E 4.25%/D25W Inj 1,000 ML @ 83 mls/hr IV. CENTRAL Q12H HATTIE Rx#:[id number] Zosyn 3.375 GM Premix 50 ML @ 100 / 100 100 / 100 50 / 50 100 mls/hr IV.SIG Q6H HATTIE Rx#: [id number] Output: Urine 1030 / 1030 Stool 0 / 0 Stool Amount (Stoma) 15 Left Lower Abdomen 15 / Wound Drainage 0 / 0 80 / 80 # 1 Abdomen Vahid 0 / 0 Abdomen 80 / 80 Narrative: NAD Abd: soft, inc vac in place, alen ss, colostomy with liquid stool - Urinary Catheter Management 1 Cath placed during this visit: yes Reason for continuing: Hourly intake/output Insertion date: 12/12/17 Assessment and Plan - Plan POD 5 ex lap, sigmiod resection, ileocectomy. Stable post op. Cont IV antibiotics. PO pain meds. Protonix, lovenox. Cont alen Start soft diet. Cont reglan.
[2017-12-18] MEDS: Potassium Chloride Inj 30 MEQ in Dextrose 5%/NaCl 0.45% Inj 1,000 ML IV.SIG SCH ×4 (00:02→15:43)
[2017-12-18] MEDS: Piperacil/Tazo 3.375 GM Premix 50 ML IV.SIG SCH ×4 (03:52→22:04)
[2017-12-18 04:28] LABS: Baso # (Auto) 0.1 th/mm3 (0.0-0.2); Baso % (Auto) 0.8 % (0.0-2.0); Eos # (Auto) 0.6 th/mm3 (0.0-0.4); Eos % (Auto) 5.3 % (0.0-4.0); Hematocrit 24.8 % (35.0-46.0); Hemoglobin 8.1 gm/dL (11.6-15.3); Lymph # (Auto) 1.2 th/mm3 (1.0-4.8); Lymph % (Auto) 11.8 % (9.0-44.0); Mean Corpuscular HGB Conc 32.6 % (32.0-36.0); Mean Corpuscular Hemoglobin 28.8 pg (27.0-34.0); Mean Corpuscular Volume 88.4 fL (80.0-100.0); Mean Platelet Volume 7.6 fL (7.0-11.0); Mono # (Auto) 1.1 th/mm3 (0.0-0.9); Mono % (Auto) 10.8 % (0.0-8.0); Neut # (Auto) 7.5 th/mm3 (1.8-7.7); Neut % (Auto) 71.3 % (16.0-70.0); Platelet Count 464 th/mm3 (150-450); Red Blood Count 2.81 mil/mm3 (4.00-5.30); Red Cell Distribution Width 14.2 % (11.6-17.2); White Blood Count 10.5 th/mm3 (4.0-11.0)
[2017-12-18 04:34] LABS: Anion Gap 5 meq/L (5-15); Blood Urea Nitrogen 9 mg/dL (7-18); Calcium 7.7 mg/dL (8.5-10.1); Chloride 105 meq/L (98-107); Glomerular Filtration Rate Greater Than 89 mL/min (>89); Glucose,Random 204 mg/dL (74-106); Potassium 3.8 meq/L (3.5-5.1); Sodium 140 meq/L (136-145)
[2017-12-18] MEDS: [UNRECOGNIZED DRUG - OTHER] IV.CENTRAL SCH ×2 (08:49→20:55)
[2017-12-18] MEDS: FOLIC ACID IV.CENTRAL SCH ×2 (08:49→20:55)
[2017-12-18] MEDS: MULTIVITAMIN IV.CENTRAL SCH ×2 (08:49→20:55)
[2017-12-18] MEDS: Pantoprazole Inj 40 MG Vial IV.PUSH SCH (08:51)
[2017-12-18] MEDS: Atenolol 50 MG Tablet PO SCH (08:51)
[2017-12-18] MEDS: Heparin Central Flush 100 UNIT/ML 5 ML Vial IV.FLUSH SCH (08:51)
[2017-12-18] MEDS: Insulin NovoLOG Aspart Correctional Sugar Inj SQ SCH ×3 (09:10→16:45)
--- NOTE | 2017-12-18 10:56 | P.PNIM ---
Subjective Interval history: Pt had NGT removed and diet advanced on 12/17 She tolerating small amount of solid food last night and this morning Some increased abd pain this morning but has liquid stool and gas in colostomy NO nausea/vomiting Physical Exam Vital signs: Vital Signs 12/17/17 12:00 12/17/17 16:00 12/17/17 20:18 Temperature 98.2 F 98.0 F 99.3 F Pulse Rate 84 81 85 Respiratory Rate 18 20 17 Blood Pressure 143/72 H 149/80 H 151/70 H Pulse Oximetry 98 99 94 L 12/18/17 00:10 12/18/17 01:24 12/18/17 04:15 Temperature 100.1 F H 99.9 F H 99.7 F H Pulse Rate 99 H Respiratory Rate 17 Blood Pressure 131/66 Pulse Oximetry 98 12/18/17 08:00 Temperature 99.2 F Pulse Rate 89 Respiratory Rate 17 Blood Pressure 137/60 Pulse Oximetry 96 Intake & Output 12/17/17 12/18/17 12/18/17 18:59 06:59 18:59 Intake Total 2455.1 / 2455.1 2550.1 / 2550.1 Output Total 850 / 850 1480 / 1480 Balance 1605.1 / 1605.1 1070.1 / 1070.1 Weight 75 kg Intake: IV 1055.1 / 1055.1 2170.1 / 2170.1 Folvite Inj 0.5 MG MVI-12 Inj 5 1005.1 / 1005.1 1005.1 / 1005.1 ML In Clinimix E 4.25%/D25W Inj 1,000 ML @ 83 mls/hr IV. CENTRAL Q12H HATTIE Rx#:[id number] Zosyn 3.375 GM Premix 50 ML @ 50 / 50 150 / 150 100 mls/hr IV.SIG Q6H HATTIE Rx#: [id number] KCl Inj 30 MEQ In D5W/1/2 NS 1015 / 1015 Inj 1,000 ML @ 84 mls/hr IV.SIG .Q12H5M HATTIE Rx#:[id number] Oral 1400 / 1400 380 / 380 Output: Urine 800 / 800 1000 / 1000 Stool Amount (Stoma) 350 / 350 Left Lower Abdomen 350 / 350 Wound Drainage 50 / 50 130 / 130 # 1 Abdomen Vahid 50 / 50 130 / 130 Other: Date of Last Bowel Movement 12/18/17 Narrative: General: NAD, AAOx3 Chest: CTA Cardiac: Regular Abd: +BS, soft, colostomy with liquid stool Ext: No edema - Urinary Catheter Management 1 Cath placed during this visit: yes Reason for continuing: Hourly intake/output Insertion date: 12/12/17 Results - Labs CBC & Chem 7: 12/18/17 04:02 12/18/17 04:02 Laboratory Results - last 24 hr 12/17/17 12/17/17 12/17/17 12:59 18:28 21:57 WBC RBC Hgb Hct MCV MCH MCHC RDW Plt Count MPV Neut % (Auto) Lymph % (Auto) [place] % (Auto) Eos % (Auto) Baso % (Auto) Neut # (Auto) Lymph # (Auto) [place] # (Auto) Eos # (Auto) Baso # (Auto) WBC Differential Differential Comment Sodium Potassium Chloride Carbon Dioxide Anion Gap BUN Creatinine Estimated GFR POC Glucose 100 177 H 141 H Random Glucose Calcium 12/18/17 12/18/17 12/18/17 04:02 04:02 07:35 WBC 10.5 RBC 2.81 L Hgb 8.1 L Hct 24.8 L MCV 88.4 D MCH 28.8 MCHC 32.6 RDW 14.2 Plt Count 464 H MPV 7.6 Neut % (Auto) 71.3 H Lymph % (Auto) 11.8 [place] % (Auto) 10.8 H Eos % (Auto) 5.3 H Baso % (Auto) 0.8 Neut # (Auto) 7.5 Lymph # (Auto) 1.2 [place] # (Auto) 1.1 H Eos # (Auto) 0.6 H Baso # (Auto) 0.1 WBC Differential . Differential Comment Auto diff final Sodium 140 Potassium 3.8 Chloride 105 Carbon Dioxide 30.0 Anion Gap 5 BUN 9 Creatinine 0.55 Estimated GFR Greater than 89 POC Glucose 242 H Random Glucose 204 H Calcium 7.7 L Microbiology 12/14/17 13:55 Blood - Line Aerobic Blood Culture - Preliminary No growth in 3 days 12/14/17 13:55 Blood - Line Anaerobic Blood Culture - Preliminary No growth in 3 days 12/14/17 14:10 Blood - Line Aerobic Blood Culture - Preliminary No growth in 3 days 12/14/17 14:10 Blood - Line Anaerobic Blood Culture - Preliminary No growth in 3 days - Imaging Abdomen/Pelvis CT 12/06/17 17:29 CONCLUSION: 1. Significant free intraperitoneal air collected under the diaphragm and in the root of mesentery. Most likely source is pelvis, root of the mesentery with associated diverticulitis Abdomen/Pelvis CT 12/09/17 00:00 CONCLUSION: Findings of abscess related to diverticulitis superior to the dome of the bladder. This is accessible to drainage. Developing fluid collection and abscess at the root of mesentery not accessible to percutaneous drainage Findings of small bowel ileus with wall thickening characteristic of inflammatory or infectious process. Abscess Drainage CT 12/09/17 00:00 CONCLUSION: 1. Uncomplicated CT guided drainage. Abdomen X-Ray 12/11/17 00:00 CONCLUSION: Ileus. Drain overlying pelvis. Assessment and Plan - Assessment (1) Perforated bowel Code(s): K63.1 - Perforation of intestine (nontraumatic) Status: Acute Plan: Perforated bowel Diverticulitis - comgmt with General Surgery and Interventional Radiology - Pt is a 57 y/o female with HTN, hx of breast cancer, and hx of melanoma. - She presented to the ED at [facility] [place] on 12/06/17 with a 5-day history of abdominal pain, N/V. She initially presented to [place] ED on 12/01/[address] Abd/ pelvis which revealed acute sigmoid diverticulitis, no perforation or abscess, and no obstruction. Pt was started on oral antibiotics with Cipro and Flagyl BID x 14 days and discharged to home. She states that she was having difficulty keeping down antibiotics. On Thursday, symptoms worsened and she had increased emesis and she was unable to keep down fluids or medication. She presented back to the emergency room on 12/06/17 for re-evaluation. - Noncontrasted CT abd/pelvis (12/06) --> significant free intraperitoneal air collected under the diaphragm and in the root of mesentery. - Pt has had intermittent fevers and chills prior to admission. - Pt has been having liquid bowel movements, Hemoccult negative. - Blood cultures (12/06) with NGTD - WBC 22.9 (8/5) -> 22.6 (8/6) --> 13.5 (8/7) --> 9.5 (8/8) --> 10.0 (12/17) - Hgb was trending down but is currently stable. - Zosyn (12/07 - present) - Zofran PRN/ Reglan PRN - D51/2NS D5W with KCL - Repeat CT A/P (12/09) - Findings of abscess related to diverticulitis superior to the dome of the bladder. This is accessible to drainage. - Developing fluid collection and abscess at the root of mesentery not accessible to percutaneous drainage - Findings of small bowel ileus with wall thickening characteristic of inflammatory or infectious process. - Pt underwent CT guided abscess drainage by IR (12/09) - removal of 20cc yellow cloudy fluid - abscess fluid gram stain (12/11) --> no WBC, no organism - abscess culture (12/11) --> NO growth - Exp/Diagnostic Laparoscopy (12/12/17) with Dr. Mckeon - sigmoid resection with end colostomy - abscess drainage - Ileocecostomy - Intraoperative Wound Cx (12/12/17) - gram stain --> NO WBC, no organisms - would Cx --> Pat Albicans - Case d/w Dr. Mckeon (12/13) - TPN started (12/14) via PICC line - glucose was running high with TPN - ACCU checks ACHS with SSI coverage - NGT clamped on 12/16 and pt tolerating clear liquids in small amounts and with gas from the ostomy site. 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 - Give Ofirmev PRN and Ultram PRN ordered - Encourage ambulation - prn Ativan - SCDs for DVT prophylaxis - PT - Pt has been evaluated by ostomy nurse for teaching - supportive care HTN - Home meds continued, Atenolol - Vasotec PRN Hypokalemia - Improved with replacement BLE edema - BLE nonpitting edema, patient reports that her BLE are often swollen and they currently look, "pretty good." - cardiac echocardiogram (12/10) EF 60-65% - Lasix 20mg IV x once - observe DVT prophylaxis with SCDs The exam, history, and the medical decision-making described in the above note were completed with the assistance of the mid-level provider. I reviewed and agree with the findings presented. I attest that I had a [id number] encounter with the patient on the same day, and personally performed and documented my assessment and findings in the medical record. (2) Diverticulitis Code(s): K57.92 - Diverticulitis of intestine, part unspecified, without perforation or abscess without bleeding Status: Acute (3) HTN (hypertension) Code(s): I10 - Essential (primary) hypertension Status: Chronic
--- NOTE | 2017-12-18 11:17 | P.PNWCN ---
Wound Care Nurse Consult Description: Consult for New Ostomy Teaching per JESSE Henry Recommendation: Empty pouch when 1/3 to 1/2 full. Monitor stoma for color and output. Change ostomy appliance every 5 to 7 days or PRN if leaking occurs. Bowel Diversion Stoma - Bowel Stoma Left Lower Abdomen Stoma Appearance: Flush to Skin, Oval Loop Supporting Berto: No Collection Device: Two-piece, Moldable Wafer Drainage Description: Liquid, Brown, Green Wafer Size: 1 3/4 Moldable 45mm Stoma Care: Pouch and Wafer Changed, Skin Care Mariah-Stomal Skin Appearance: Intact Mariah-Stomal Surrounding Tissue Sensation Description: No Symptoms - Additional Information Additional Information: Late entry from 12/17/2017: Patient seen on for new ostomy teaching. Two piece colostomy appliance in place presents with leaking at 9 o'clock. Removed colostomy appliance in place being careful not to disturb midline abdominal LU dressing. Stoma is oval in shape and today presents more retracted, but still above the facia. Stoma measures 7/8 inches tall and 1 1/4 inch wide and is pink in color. Emptied ~150 ml of liquid brown/green effluent from pouch before changing appliance.Small amount of flatus is also present.Peristomal skin is intact and was cleansed with water and wash cloth and patted dry. Skin barrier film spray was applied to peristomal skin and allowed to dry, before molding 1 3/4 wafer to size and Applied jessica seal lining the stoma. Applied wafer in place over stoma with attached adaptor. Pouch was then snapped in to place. Patient's daughter is not available for teaching. Patient was able to practice opening and closing [employer] Velcro closure pouch. Will coordinate with daughter tomorrow for continued ostomy teaching.
--- NOTE | 2017-12-18 13:12 | P.PNGS ---
Subjective Interval history: She has had low grade temps. C/o pain especially when ambulating. Tolerating some solids. Had mild nausea earlier. Physical Exam Vital signs: Vital Signs 12/17/17 16:00 12/17/17 20:18 12/18/17 00:10 Temperature 98.0 F 99.3 F 100.1 F H Pulse Rate 81 85 99 H Respiratory Rate 20 17 17 Blood Pressure 149/80 H 151/70 H 131/66 Pulse Oximetry 99 94 L 98 12/18/17 01:24 12/18/17 04:15 12/18/17 08:00 Temperature 99.9 F H 99.7 F H 99.2 F Pulse Rate 89 Respiratory Rate 17 Blood Pressure 137/60 Pulse Oximetry 96 12/18/17 11:49 12/18/17 12:02 Temperature Pulse Rate Respiratory Rate 17 17 Blood Pressure Pulse Oximetry Intake & Output 12/17/17 12/18/17 12/18/17 18:59 06:59 18:59 Intake Total 2455.1 / 2455.1 2550.1 / 2550.1 300 / 300 Output Total 850 / 850 1480 / 1480 250 / 250 Balance 1605.1 / 1605.1 1070.1 / 1070.1 50 / 50 Weight 75 kg Intake: IV 1055.1 / 1055.1 2170.1 / 2170.1 300 / 300 Folvite Inj 0.5 MG MVI-12 Inj 5 1005.1 / 1005.1 1005.1 / 1005.1 ML In Clinimix E 4.25%/D25W Inj 1,000 ML @ 83 mls/hr IV. CENTRAL Q12H HATTIE Rx#:[id number] Intralipid 20% Inj 250 ML @ 31. 250 / 250 25 mls/hr IV.SIG Q24H HATTIE Rx#: [id number] Zosyn 3.375 GM Premix 50 ML @ 50 / 50 150 / 150 50 / 50 100 mls/hr IV.SIG Q6H HATTIE Rx#: [id number] KCl Inj 30 MEQ In D5W/1/2 NS 1015 / 1015 Inj 1,000 ML @ 84 mls/hr IV.SIG .Q12H5M HATTIE Rx#:[id number] Oral 1400 / 1400 380 / 380 Output: Urine 800 / 800 1000 / 1000 250 / 250 Stool Amount (Stoma) 350 / 350 Left Lower Abdomen 350 / 350 Wound Drainage 50 / 50 130 / 130 # 1 Abdomen Vahid 50 / 50 130 / 130 Other: Date of Last Bowel Movement 12/18/17 Narrative: NAD Abd: mild distention, soft, alen ss, inc with vac in place; colostomy pink with liquid stool and gas output - Urinary Catheter Management 1 Cath placed during this visit: yes Reason for continuing: Hourly intake/output Insertion date: 12/12/17 Assessment and Plan - Plan POD 6 ex lap, sigmiod resection, ileocectomy. Stable post op. Cont IV antibiotics. PO pain meds. Protonix, lovenox. Cont alen Soft diet. Cont reglan.
[2017-12-18] MEDS: Enoxaparin Inj 40 MG/0.4 ML Syringe SQ SCH (14:21)
--- NOTE | 2017-12-18 15:41 | P.DIET ---
Nutritional Evaluation Type of nutrition evaluation: follow-up Nutrition consult regarding: TPN/PPN ([facility] for TPN/PPN) Subjective Subjective Comments: NGT removed and diet advanced 12/17. Pt tolerating small amouts of po intake today w/75% po for breakfast and 50% po for lunch. Objective - Diagnosis Perforated Bowel, Diverticulitis - Objective [place] body weight: 56.8 kg % IBW: 132 (SNB=618-in) Body Weight Used for Calculations: IBW (56.8kg) Energy Needs - Lower Range (kCal/kg): 25 Energy Needs - Upper Range (kCal/kg): 30 Lower Limit kCal/kg (kCals): 1,420 Upper Limit kCal/kg (kCals): 1,704 Lower Limit Protein Factor (Grams per Kg): 1.1 Upper Limit Protein Factor (Grams per Kg): 1.4 Lower Protein Needs (Protein): 62 Upper Protein Needs (Protein): 80 Dietitian Reviewed in Medical Record: Current diet, Curent medications, Intake & Output, Labs, Medical history, TPN/PPN Diet Order: Soft Oral Diet Intake Amount: Fair 50-75% Objective Comments: POD#6 exp lap, sigmid resection, ileocectomy Glucose 204, Accucheck 242, 216 Meds Include: Novolog, Reglan, Zofran, Protonix +BM, +UOP 1800ml Feeding - Current TPN/PPN Current TPN: Clinimix E 4.25/25 Current TPN/PPN Rate (ml/hr): 42 Amino Acid and Dextrose Current kCals Provided: 1,020 Amino Acid and Dextrose Current Protein Provided: 43 Current Lipid Concentration: 20% Current Lipids Rate: 250 mls daily over 8 hours Current kCal Provided by TPN/PPN: 1,520 Assessment Assessment: Pt continues at nutritional risk r/t clinical course and need for TPN. Current TPN providing 69% for protein needs and 100% for kcal needs. Pt tolerating small amounts of po intake. Labs/electrolytes [id number] receiving SSI. Rec a TG level in setting of TPN. Wt noted. Dietitian following. Recommendations: 1. Current TPN 2.Rec a TG level 3. Dietitian following Dietitian to Monitor: Lab values, Electrolytes, Intake & Output, TPN/PPN tolerance, Weight change, Diet advancement, Medical course
--- NOTE | 2017-12-18 18:06 | P.PNWCN ---
Wound Care Nurse Consult Description: Consult for New Ostomy Teaching per JESSE Henry Communicated with: RN Ashanti Recommendation: Empty pouch when 1/3 to 1/2 full. Monitor stoma for color and output. Change ostomy appliance every 5 to 7 days or PRN if leaking occurs. Incision - Patient Status Premedicated for Pain Prior to Dressing Change: No - Incision Left Lower Abdomen Incision Assessment: Ongoing Incision Type: Incision Incision Description: Intact, Open Drainage Description: Serous Drainage Amount: Scant Drainage Odor: No Odor Incision Dressing Status: Dry & Intact Incision Dressing Change Date: 12/12/17 Anterior Abdomen Incision Assessment: Ongoing Incision Type: Incision Incision Description: Approximated Incision Bed Appearance: [place] Drainage Amount: None Incision Dressing Status: Dry & Intact Primary Dressing: Absorbant Pad Cover Dressing: Drainage Sponge Bowel Diversion Stoma - Bowel Stoma Left Lower Abdomen Stoma Appearance: Oval, Retracted Loop Supporting Berto: No Collection Device: Two-piece, Moldable Wafer Drainage Description: Liquid, Brown, Green Wafer Size: 1 3/4 Moldable 45mm Mariah-Stomal Skin Appearance: Intact Mariah-Stomal Surrounding Tissue Sensation Description: No Symptoms - Additional Information Additional Information: Patient seen on for new ostomy teaching. Two piece colostomy appliance in place presents and is dry and intact today. flatus is also present in pouch.Patient's daughter is available for teaching. Daughter was able to return demonstrate Wafer and pouch application of a two piece appliance RX is chart.
[2017-12-19] MEDS: Piperacil/Tazo 3.375 GM Premix 50 ML IV.SIG SCH ×4 (03:09→22:04)
[2017-12-19] MEDS: Potassium Chloride Inj 30 MEQ in Dextrose 5%/NaCl 0.45% Inj 1,000 ML IV.SIG SCH ×2 (05:05→18:05)
[2017-12-19] MEDS: [UNRECOGNIZED DRUG - OTHER] IV.CENTRAL SCH (07:01)
[2017-12-19] MEDS: MULTIVITAMIN IV.CENTRAL SCH (07:01)
[2017-12-19] MEDS: FOLIC ACID IV.CENTRAL SCH (07:01)
[2017-12-19] MEDS: Atenolol 50 MG Tablet PO SCH (09:13)
[2017-12-19] MEDS: Heparin Central Flush 100 UNIT/ML 5 ML Vial IV.FLUSH SCH (09:16)
[2017-12-19] MEDS: Pantoprazole Inj 40 MG Vial IV.PUSH SCH (09:16)
--- NOTE | 2017-12-19 09:49 | P.PNIM ---
Subjective Interval history: Pt feeling better this morning She is ambulating in the room unassisted without difficulty Pt tolerated her food well last night. Some nausea this morning but able to eat breakfast She reports that her CHRISTIAN drain leaked out onto her bed last night Pt concerned about dressing changes. Physical Exam Vital signs: Vital Signs 12/18/17 11:49 12/18/17 12:00 12/18/17 12:02 Temperature 98.0 F Pulse Rate 84 Respiratory Rate 17 16 17 Blood Pressure 113/63 Pulse Oximetry 98 12/18/17 16:00 12/18/17 20:00 12/19/17 00:37 Temperature 97.6 F 98.1 F 98.3 F Pulse Rate 77 77 81 Respiratory Rate 16 16 16 Blood Pressure 124/73 126/69 130/62 Pulse Oximetry 97 96 96 12/19/17 08:00 Temperature 98.3 F Pulse Rate 88 Respiratory Rate 18 Blood Pressure 144/81 H Pulse Oximetry 97 Intake & Output 12/18/17 12/19/17 12/19/17 18:59 06:59 18:59 Intake Total 1950 / 1950 340 / 340 Output Total 250 / 250 190 / 190 Balance 1700 / 1700 150 / 150 Weight 75.4 kg Intake: IV 350 / 350 100 / 100 Intralipid 20% Inj 250 ML @ 31. 250 / 250 25 mls/hr IV.SIG Q24H HATTIE Rx#: [id number] Zosyn 3.375 GM Premix 50 ML @ 100 / 100 100 / 100 100 mls/hr IV.SIG Q6H HATTIE Rx#: [id number] Oral 1600 / 1600 240 / 240 Output: Urine 250 / 250 Stool Amount (Stoma) 150 / 150 Left Lower Abdomen 150 / 150 Wound Drainage 40 / 40 # 1 Abdomen Vahid 40 / 40 Other: # Voids 5 3 Date of Last Bowel Movement 12/18/17 Narrative: General: NAD, AAOx3 Chest: CTA Cardiac: Regular Abd: +BS, soft, colostomy with liquid stool Ext: No edema - Urinary Catheter Management 1 Cath placed during this visit: yes Reason for continuing: Hourly intake/output Insertion date: 12/12/17 Results - Labs CBC & Chem 7: 12/18/17 04:02 12/18/17 04:02 Laboratory Results - last 24 hr 12/18/17 12/18/17 11:45 16:27 POC Glucose 216 H 139 H Microbiology 12/14/17 13:55 Blood - Line Aerobic Blood Culture - Preliminary No growth in 4 days 12/14/17 13:55 Blood - Line Anaerobic Blood Culture - Preliminary No growth in 4 days 12/14/17 14:10 Blood - Line Aerobic Blood Culture - Preliminary No growth in 4 days 12/14/17 14:10 Blood - Line Anaerobic Blood Culture - Preliminary No growth in 4 days - Imaging Abdomen/Pelvis CT 12/06/17 17:29 CONCLUSION: 1. Significant free intraperitoneal air collected under the diaphragm and in the root of mesentery. Most likely source is pelvis, root of the mesentery with associated diverticulitis Abdomen/Pelvis CT 12/09/17 00:00 CONCLUSION: Findings of abscess related to diverticulitis superior to the dome of the bladder. This is accessible to drainage. Developing fluid collection and abscess at the root of mesentery not accessible to percutaneous drainage Findings of small bowel ileus with wall thickening characteristic of inflammatory or infectious process. Abscess Drainage CT 12/09/17 00:00 CONCLUSION: 1. Uncomplicated CT guided drainage. Abdomen X-Ray 12/11/17 00:00 CONCLUSION: Ileus. Drain overlying pelvis. Assessment and Plan - Assessment (1) Perforated bowel Code(s): K63.1 - Perforation of intestine (nontraumatic) Status: Acute Plan: Perforated bowel Diverticulitis - comgmt with General Surgery and Interventional Radiology - Pt is a 57 y/o female with HTN, hx of breast cancer, and hx of melanoma. - She presented to the ED at [facility] on 12/06/17 with a 5-day history of abdominal pain, N/V. She initially presented to [place] ED on 12/01/[address] Abd/ pelvis which revealed acute sigmoid diverticulitis, no perforation or abscess, and no obstruction. Pt was started on oral antibiotics with Cipro and Flagyl BID x 14 days and discharged to home. She states that she was having difficulty keeping down antibiotics. On Thursday, symptoms worsened and she had increased emesis and she was unable to keep down fluids or medication. She presented back to the emergency room on 12/06/17 for re-evaluation. - Noncontrasted CT abd/pelvis (12/06) --> significant free intraperitoneal air collected under the diaphragm and in the root of mesentery. - Pt has had intermittent fevers and chills prior to admission. - Pt has been having liquid bowel movements, Hemoccult negative. - Blood cultures (12/06) with NGTD - WBC 22.9 (8/5) -> 22.6 (8/6) --> 13.5 (8/7) --> 9.5 (/) --> 10.0 (/) - Hgb was trending down but is currently stable. - Zosyn (12/07 - present) - Zofran PRN/ Reglan PRN - D51/2NS D5W with KCL - Repeat CT A/P (12/09) - Findings of abscess related to diverticulitis superior to the dome of the bladder. This is accessible to drainage. - Developing fluid collection and abscess at the root of mesentery not accessible to percutaneous drainage - Findings of small bowel ileus with wall thickening characteristic of inflammatory or infectious process. - Pt underwent CT guided abscess drainage by IR (12/09) - removal of 20cc yellow cloudy fluid - abscess fluid gram stain (12/11) --> no WBC, no organism - abscess culture (12/11) --> NO growth - Exp/Diagnostic Laparoscopy (12/12/17) with Dr. Mckeon - sigmoid resection with end colostomy - abscess drainage - Ileocecostomy - Intraoperative Wound Cx (12/12/17) - gram stain --> NO WBC, no organisms - would Cx --> Pat Albicans - Case d/w Dr. Mckeon (12/13) - TPN started (12/14) via PICC line - glucose was running high with TPN - ACCU checks ACHS with SSI coverage - NGT clamped on 12/16 and pt tolerating clear liquids in small amounts and with gas from the ostomy site. - NGT removed on 12/17 and diet advanced to solids - Toradol prn, Dilaudid DOUBLER OPERATOR stopped on 12/17 - Percocet PRN, Ofirmev PRN and Ultram PRN ordered - TPN weaned off on 12/18 - GS to re-evaluate CHRISTIAN drain today - Encourage ambulation - prn Ativan - SCDs for DVT prophylaxis - PT - Pt has been evaluated by ostomy nurse for teaching - supportive care HTN - Home meds continued, Atenolol - Vasotec PRN Hypokalemia - Improved with replacement BLE edema, improved - BLE nonpitting edema, patient reports that her BLE are often swollen and they currently look, "pretty good." - cardiac echocardiogram (12/10) EF 60-65% - Lasix 20mg IV x once - observe DVT prophylaxis with SCDs (2) Diverticulitis Code(s): K57.92 - Diverticulitis of intestine, part unspecified, without perforation or abscess without bleeding Status: Acute (3) HTN (hypertension) Code(s): I10 - Essential (primary) hypertension Status: Chronic
--- NOTE | 2017-12-19 13:25 | P.PNGS ---
Subjective Patient reports: no new complaints, feels better, still having pain, pain is less, tolerating a regular diet, flatus, bowel movement Physical Exam Vital signs: Vital Signs 12/18/17 16:00 12/18/17 20:00 12/19/17 00:37 Temperature 97.6 F 98.1 F 98.3 F Pulse Rate 77 77 81 Respiratory Rate 16 16 16 Blood Pressure 124/73 126/69 130/62 Pulse Oximetry 97 96 96 12/19/17 08:00 12/19/17 10:45 Temperature 98.3 F Pulse Rate 88 Respiratory Rate 18 17 Blood Pressure 144/81 H Pulse Oximetry 97 Intake & Output 12/18/17 12/19/17 12/19/17 18:59 06:59 18:59 Intake Total 1950 / 1950 340 / 340 1155.1 / 1155.1 Output Total 250 / 250 190 / 190 Balance 1700 / 1700 150 / 150 1155.1 / 1155.1 Weight 75.4 kg Intake: IV 350 / 350 100 / 100 1155.1 / 1155.1 Folvite Inj 0.5 MG MVI-12 Inj 5 1005.1 / 1005.1 ML In Clinimix E 4.25%/D25W Inj 1,000 ML @ 42 mls/hr IV. CENTRAL Q12H HATTIE Rx#:[id number] Intralipid 20% Inj 250 ML @ 31. 250 / 250 25 mls/hr IV.SIG Q24H HATTIE Rx#: [id number] Zosyn 3.375 GM Premix 50 ML @ 100 / 100 100 / 100 50 / 50 100 mls/hr IV.SIG Q6H HATTIE Rx#: [id number] Oral 1600 / 1600 240 / 240 Output: Urine 250 / 250 Stool Amount (Stoma) 150 / 150 Left Lower Abdomen 150 / 150 Wound Drainage 40 / 40 # 1 Abdomen Vahid 40 / 40 Other: # Voids 5 3 Date of Last Bowel Movement 12/18/17 12/19/17 - Constitutional no acute distress - Routine Abdominal Exam Present: soft, normoactive bowel sounds (Minimal incisional tenderness; stoma ok with gas and stool output. ) - Urinary Catheter Management 1 Cath placed during this visit: yes Reason for continuing: Hourly intake/output Insertion date: 12/12/17 Assessment and Plan - Assessment (1) Diverticulitis Code(s): K57.92 - Diverticulitis of intestine, part unspecified, without perforation or abscess without bleeding Status: Acute Plan: Will change LU dressing today; continue to increase activity. Likely home in the next day or two.
[2017-12-19] MEDS: Enoxaparin Inj 40 MG/0.4 ML Syringe SQ SCH (14:47)
[2017-12-19] MEDS ORDERED: FOLIC ACID IV.CENTRAL SCH (20:00)
[2017-12-19] MEDS ORDERED: MULTIVITAMIN IV.CENTRAL SCH (20:00)
[2017-12-19] MEDS ORDERED: [UNRECOGNIZED DRUG - OTHER] IV.CENTRAL SCH (20:00)
[2017-12-20] MEDS: Piperacil/Tazo 3.375 GM Premix 50 ML IV.SIG SCH ×2 (03:57→08:45)
[2017-12-20] MEDS: Potassium Chloride Inj 30 MEQ in Dextrose 5%/NaCl 0.45% Inj 1,000 ML IV.SIG SCH (05:06)
[2017-12-20] MEDS: Atenolol 50 MG Tablet PO SCH (08:26)
[2017-12-20] MEDS: Heparin Central Flush 100 UNIT/ML 5 ML Vial IV.FLUSH SCH (08:31)
[2017-12-20] MEDS: Pantoprazole Inj 40 MG Vial IV.PUSH SCH (08:31)
--- NOTE | 2017-12-20 09:11 | P.PNIM ---
Subjective Interval history: Pt feeling well this morning. She is sitting up in the chair and eating breakfast. LU dressing was removed on 12/19 Still with CHRISTIAN drain in place Pt reports that she has had a lot of gas out of the ostomy but no stool other than a small amount of liquid yesterday morning. Denies any nausea Physical Exam Vital signs: Vital Signs 12/19/17 10:45 12/19/17 12:00 12/19/17 20:00 Temperature 98.0 F 98 F Pulse Rate 73 75 Respiratory Rate 17 14 18 Blood Pressure 125/71 176/81 H Pulse Oximetry 96 98 12/20/17 00:00 12/20/17 08:00 Temperature 98.5 F 98.8 F Pulse Rate 78 88 Respiratory Rate 18 18 Blood Pressure 115/58 L 109/55 L Pulse Oximetry 97 96 Intake & Output 12/19/17 12/20/17 12/20/17 18:59 06:59 18:59 Intake Total 2805.1 / 2805.1 50 / 50 50 / 50 Output Total 40 / 40 30 / 30 Balance 2765.1 / 2765.1 20 / 20 50 / 50 Intake: IV 1205.1 / 1205.1 50 / 50 50 / 50 Folvite Inj 0.5 MG MVI-12 Inj 5 1005.1 / 1005.1 ML In Clinimix E 4.25%/D25W Inj 1,000 ML @ 42 mls/hr IV. CENTRAL Q12H HATTIE Rx#:[id number] Zosyn 3.375 GM Premix 50 ML @ 100 / 100 50 / 50 50 / 50 100 mls/hr IV.SIG Q6H HATTIE Rx#: [id number] Oral 1600 / 1600 Output: Wound Drainage 40 / 40 30 / 30 Abdomen 40 / 40 30 / 30 Other: # Voids 6 Date of Last Bowel Movement 12/19/17 Narrative: General: NAD, AAOx3 Chest: CTA Cardiac: Regular Abd: +BS, soft, colostomy with small amount of liquid stool Ext: No edema - Urinary Catheter Management 1 Cath placed during this visit: yes Reason for continuing: Hourly intake/output Insertion date: 12/12/17 Results - Labs CBC & Chem 7: 12/18/17 04:02 12/18/17 04:02 Microbiology 12/14/17 13:55 Blood - Line Aerobic Blood Culture - Final No growth in 5 days 12/14/17 13:55 Blood - Line Anaerobic Blood Culture - Final No growth in 5 days 12/14/17 14:10 Blood - Line Aerobic Blood Culture - Final No growth in 5 days 12/14/17 14:10 Blood - Line Anaerobic Blood Culture - Final No growth in 5 days - Imaging Abdomen/Pelvis CT 12/06/17 17:29 CONCLUSION: 1. Significant free intraperitoneal air collected under the diaphragm and in the root of mesentery. Most likely source is pelvis, root of the mesentery with associated diverticulitis Abdomen/Pelvis CT 12/09/17 00:00 CONCLUSION: Findings of abscess related to diverticulitis superior to the dome of the bladder. This is accessible to drainage. Developing fluid collection and abscess at the root of mesentery not accessible to percutaneous drainage Findings of small bowel ileus with wall thickening characteristic of inflammatory or infectious process. Abscess Drainage CT 12/09/17 00:00 CONCLUSION: 1. Uncomplicated CT guided drainage. Abdomen X-Ray 12/11/17 00:00 CONCLUSION: Ileus. Drain overlying pelvis. Assessment and Plan - Assessment (1) Perforated bowel Code(s): K63.1 - Perforation of intestine (nontraumatic) Status: Acute Plan: Perforated bowel Diverticulitis - comgmt with General Surgery and Interventional Radiology - Pt is a 57 y/o female with HTN, hx of breast cancer, and hx of melanoma. - She presented to the ED at [facility] on [place] with a 5-day history of abdominal pain, N/V. She initially presented to [place] ED on 12/01/[address] Abd/ pelvis which revealed acute sigmoid diverticulitis, no perforation or abscess, and no obstruction. Pt was started on oral antibiotics with Cipro and Flagyl BID x 14 days and discharged to home. She states that she was having difficulty keeping down antibiotics. On Thursday, symptoms worsened and she had increased emesis and she was unable to keep down fluids or medication. She presented back to the emergency room on 12/06/17 for re-evaluation. - Noncontrasted CT abd/pelvis (12/06) --> significant free intraperitoneal air collected under the diaphragm and in the root of mesentery. - Pt has had intermittent fevers and chills prior to admission. - Blood cultures (12/06) with NGTD - WBC 22.9 (8/5) -> 22.6 (8/6) --> 13.5 (8/7) --> 9.5 (12/16) --> 10.0 (12/17) --> 10.5 (12/18) - Hgb was trending down but is currently stable. - Zosyn (12/07 - present) - Zofran PRN/ Reglan PRN - Repeat CT A/P (12/09) - Findings of abscess related to diverticulitis superior to the dome of the bladder. This is accessible to drainage. - Developing fluid collection and abscess at the root of mesentery not accessible to percutaneous drainage - Findings of small bowel ileus with wall thickening characteristic of inflammatory or infectious process. - Pt underwent CT guided abscess drainage by IR (12/09) - removal of 20cc yellow cloudy fluid - abscess fluid gram stain (12/11) --> no WBC, no organism - abscess culture (12/11) --> NO growth - Exp/Diagnostic Laparoscopy (12/12/17) with Dr. Mckeon - sigmoid resection with end colostomy - abscess drainage - Ileocecostomy - Intraoperative Wound Cx (12/12/17) - gram stain --> NO WBC, no organisms - would Cx --> Pat Albicans - Case d/w Dr. Mckeon (12/13) - TPN started (12/14) via PICC line - glucose was running high with TPN - ACCU checks ACHS with SSI coverage - NGT clamped on 12/16 and pt tolerating clear liquids in small amounts and with gas from the ostomy site. - NGT removed on 12/17 and diet advanced to solids - Toradol prn, Dilaudid GUM COOK stopped on 12/17 - Percocet PRN, Ofirmev PRN and Ultram PRN ordered - TPN weaned off on 12/18 - LU dressing removed on 12/19 - GS to re-evaluate CHRISTIAN drain - Encourage ambulation - prn Ativan - SCDs for DVT prophylaxis - PT - Pt has been evaluated by ostomy nurse for teaching - supportive care HTN - Home meds continued, Atenolol - Vasotec PRN Hypokalemia - Improved with replacement BLE edema, improved - BLE nonpitting edema, patient reports that her BLE are often swollen and they currently look, "pretty good." - cardiac echocardiogram (12/10) EF 60-65% - Lasix 20mg IV x once - observe DVT prophylaxis with SCDs (2) Diverticulitis Code(s): K57.92 - Diverticulitis of intestine, part unspecified, without perforation or abscess without bleeding Status: Acute (3) HTN (hypertension) Code(s): I10 - Essential (primary) hypertension Status: Chronic
[2017-12-20] MEDS: Enoxaparin Inj 40 MG/0.4 ML Syringe SQ SCH (14:04)
--- NOTE | 2017-12-20 15:21 | P.DCO ---
- Physical Therapy Order: Evaluate and treat - Home Health Nursing Order: Medical education, Signs/symptoms of disease process, Wound care and dressing changes, Nursing assessment with vital signs Instructions: Wound Care instructions: - Bowel Stoma Left Lower Abdomen Stoma Appearance: Oval, Retracted Loop Supporting Berto: No Collection Device: Two-piece, Moldable Wafer Drainage Description: Liquid, Brown, Green Wafer Size: 1 3/4 Moldable 45mm - Empty pouch when 1/3 to 1/2 full. - Monitor stoma for color and output. - Change ostomy appliance every 5 to 7 days or PRN if leaking occurs. - Incision Left Lower Abdomen Incision Assessment: Ongoing Incision Type: Incision Incision Description: Intact, Open Drainage Description: Serous Drainage Amount: Scant Drainage Odor: No Odor Incision Dressing Status: Dry & Intact Incision Dressing Change Date: 12/12/17 Anterior Abdomen Incision Assessment: Ongoing Incision Type: Incision Incision Description: Approximated Incision Bed Appearance: [place] Drainage Amount: None Incision Dressing Status: Dry & Intact Primary Dressing: Absorbant Pad Cover Dressing: [place] to be changed daily - Certification I have seen patient Nicolette Lomeli on 12/20/17. My clinical findings support the need for the requested home health care services because: Deconditioned with increased weakness, Infection with risk of complications I certify that my clinical findings support that this patient is homebound because: Post-op weakness
--- NOTE | 2017-12-20 15:33 | P.DS ---
<Debbi Lees E - Last Filed: 12/20/17 15:22> Date of admission: 12/06/17 20:32 Primary care physician: UNKNOWN Attending physician on discharge: Ferny Salgado Anticipated date of discharge: 12/20/17 Brief History from admission: Mrs. bethea is a 57 y/o female with HTN, hx of breast cancer, and hx of melanoma. She presented to the ED at [facility] [place] on 12/06/17 with a 5-day history of abdominal pain. The patient states that the pain started in her lower abdomen initially with associated vomiting. She presented to [facility] ED on 12/01/[address] Abd/pelvis which revealed acute sigmoid diverticulitis, no perforation or abscess, and no obstruction. Pt was started on oral antibiotics with Cipro and Flagyl BID x 14 days and discharged to home. She states that she was having difficulty keeping down antibiotics. On Thursday, symptoms worsened and she had increased emesis and she was unable to keep down fluids or medication. She presented back to the emergency room on 12/06/17 for re-evaluation. In the ED she had a noncontrasted CT abd/pelvis which revealed significant free intraperitoneal air collected under the diaphragm and in the root of mesentery. The patient reported a fever of 101 on the day prior to presentation in the ED. She reports that she has been having liquid bowel movements. No chest pains or shortness of breath. Pt was started on Zosyn in the ED. General Surgery evaluated the pt in the ED last night and they are recommending continued supportive care and IV antibiotics and monitoring her clinical status closely. Past Medical Hx Diverticulitis Hypertension Hx of breast cancer in 2011, BRCA gene positive, s/p surgery and XRT, followed with Dr. Lanier and Dr. Wilson Hx of melanoma Past Surgical Hx Right breast partial mastectomy in 2011 Left breast lumpectomy in 2013 which was benign TREE with BSO Bladder sling Melanoma removal Family Hx Noncontributory Social Hx Denies any tobacco or illicit drug use Occasional social alcohol use DS: Diagnosis - Discharge Diagnosis (1) Perforated bowel Status: Acute (2) Diverticulitis Status: Acute (3) HTN (hypertension) Status: Chronic (4) Diverticulitis of intestine with abscess Status: Acute DS: Medications - Discharge Medications Prescriptions: fluconazole [Diflucan] 100 mg PO DAILY 7 Days #14 tab hydrocodone-acetaminophen 1 tab PO Q4H PRN #30 tab PRN Reason: Pain DS: Summary Hospital Course: Perforated bowel Diverticulitis - Pt is a 57 y/o female with HTN, hx of breast cancer, and hx of melanoma. She presented to the ED at [facility] on 12/06/17 with a 5-day history of abdominal pain, N/ V. She initially presented to [facility] ED on 12/01/[address] Abd/pelvis which revealed acute sigmoid diverticulitis, no perforation or abscess, and no obstruction. Pt was started on oral antibiotics with Cipro and Flagyl BID x 14 days and discharged to home. She states that she was having difficulty keeping down antibiotics. On Thursday, symptoms worsened and she had increased emesis and she was unable to keep down fluids or medication. She presented back to the emergency room on 12/06/17 for re-evaluation. Pt has had intermittent fevers and chills prior to admission. Pt had a Noncontrasted CT abd/pelvis (12/06) --> significant free intraperitoneal air collected under the diaphragm and in the root of mesentery. Blood cultures (12/06) with NGTD. Her WBC count improved during admission and Hgb was trending down but is currently stable. Pt was treated with Zosyn (12/07 - 12/20/17) She had a Repeat CT A/P (12/09) -->Findings of abscess related to diverticulitis superior to the dome of the bladder. This is accessible to drainage. Developing fluid collection and abscess at the root of mesentery not accessible to percutaneous drainage. Findings of small bowel ileus with wall thickening characteristic of inflammatory or infectious process. Pt underwent CT guided abscess drainage by IR (12/09) with removal of 20cc yellow cloudy fluid. Abscess fluid gram stain (12/11) --> no WBC, no organism. Abscess culture (12/11) --> NO growth. Pt underwent Exp/Diagnostic Laparoscopy (12/12/17) with sigmoid resection with end colostomy, abscess drainage, and ileocecostomy with Dr. Mckeon. TPN was started (12/14) via PICC line. Glucose was running high with TPN so ACCU checks ACHS with SSI coverage was added. NGT clamped on 12/16 and pt tolerated clear liquids in small amounts and with gas from the ostomy site. NGT removed on 12/17 and diet advanced to soft solids. TPN weaned off on 12/18. LU dressing removed on 12/19. GS re-evaluated on 12/20 and cleared the pt for discharge with CHRISTIAN drain to be removed on the day of discharge. Intraoperative Wound Cx (12/12/17) with gram stain --> NO WBC, no organisms and would Cx --> Pat Albicans. Pt will be discharged on Diflucan 100mg daily x 7 days. We will arrange for HHC/PT and pt was seen by wound care and the pt and her daughter were both given teaching instructions for ostomy care and changing. Pt was given supplies for the ostomy and prescriptions were written by wound care nurses for the appliances. Pt will need to followup with Dr. Mckeon in 1 week Pt is to followup with her PCP in 1-2 weeks. HTN - Cont. home dose of Atenolol Hypokalemia - Improved with replacement BLE edema, improved - BLE nonpitting edema, patient reports that her BLE are often swollen and they currently look, "pretty good." Cardiac echocardiogram (12/10) EF 60-65%. Lasix 20mg IV x once. Pt has done well off her HCTZ. This may be resumed should her legs start swelling again as long as her BP is stable. This can be followed by HHC. - Time Spent with Patient Total time spent providing and/or coordinating discharge services: Greater than 30 minutes - Quality: VTE Deep Vein Thrombosis/Pulmonary Embolism Present on Admission: No Exam Vital signs: Vital Signs 12/19/17 20:00 12/20/17 00:00 12/20/17 08:00 Temperature 98 F 98.5 F 98.8 F Pulse Rate 75 78 88 Respiratory Rate 18 18 18 Blood Pressure 176/81 H 115/58 L 109/55 L Pulse Oximetry 98 97 96 12/20/17 12:00 Temperature 98.2 F Pulse Rate 72 Respiratory Rate 16 Blood Pressure 117/57 L Pulse Oximetry 96 Intake & Output 12/19/17 12/20/17 12/20/17 18:59 06:59 18:59 Intake Total 2805.1 / 2805.1 50 / 50 100 / 100 Output Total 40 / 40 30 / 30 Balance 2765.1 / 2765.1 20 / 20 100 / 100 Intake: IV 1205.1 / 1205.1 50 / 50 100 / 100 Folvite Inj 0.5 MG MVI-12 Inj 5 1005.1 / 1005.1 ML In Clinimix E 4.25%/D25W Inj 1,000 ML @ 42 mls/hr IV. CENTRAL Q12H HATTIE Rx#:[id number] Zosyn 3.375 GM Premix 50 ML @ 100 / 100 50 / 50 100 / 100 100 mls/hr IV.SIG Q6H HATTIE Rx#: [id number] Oral 1600 / 1600 Output: Wound Drainage 40 / 40 30 / 30 Abdomen 40 / 40 30 / 30 Other: # Voids 6 Date of Last Bowel Movement 12/19/17 12/19/17 Results Procedures completed during hospitalization: See above - Impressions ITS Impressions Abdomen/Pelvis CT 12/09/17 00:00 CONCLUSION: Findings of abscess related to diverticulitis superior to the dome of the bladder. This is accessible to drainage. Developing fluid collection and abscess at the root of mesentery not accessible to percutaneous drainage Findings of small bowel ileus with wall thickening characteristic of inflammatory or infectious process. Abscess Drainage CT 12/09/17 00:00 CONCLUSION: 1. Uncomplicated CT guided drainage. Abdomen X-Ray 12/11/17 00:00 CONCLUSION: Ileus. Drain overlying pelvis. <Ferny Salgado - Last Filed: 12/20/17 15:36> Date of admission: 12/06/17 20:32 Primary care physician: UNKNOWN DS: Diagnosis - Discharge Diagnosis (1) Perforated bowel Status: Acute (2) Diverticulitis Status: Acute (3) HTN (hypertension) Status: Chronic (4) Diverticulitis of intestine with abscess Status: Acute DS: Summary - Time Spent with Patient Total time spent providing and/or coordinating discharge services: Exam Vital signs: Vital Signs 12/19/17 20:00 12/20/17 00:00 12/20/17 08:00 Temperature 98 F 98.5 F 98.8 F Pulse Rate 75 78 88 Respiratory Rate 18 Blood Pressure 176/81 H 115/58 L 109/55 L Pulse Oximetry 98 97 96 12/20/17 12:00 Temperature 98.2 F Pulse Rate 72 Respiratory Rate 16 Blood Pressure 117/57 L Pulse Oximetry 96 Intake & Output 12/19/17 12/20/17 12/20/17 18:59 06:59 18:59 Intake Total 2805.1 / 2805.1 50 / 50 100 / 100 Output Total 40 / 40 30 / 30 Balance 2765.1 / 2765.1 20 / 20 100 / 100 Intake: IV 1205.1 / 1205.1 50 / 50 100 / 100 Folvite Inj 0.5 MG MVI-12 Inj 5 1005.1 / 1005.1 ML In Clinimix E 4.25%/D25W Inj 1,000 ML @ 42 mls/hr IV. CENTRAL Q12H HATTIE Rx#:[id number] Zosyn 3.375 GM Premix 50 ML @ 100 / 100 50 / 50 100 / 100 100 mls/hr IV.SIG Q6H HATTIE Rx#: [id number] Oral 1600 / 1600 Output: Wound Drainage 40 / 40 30 / 30 Abdomen 40 / 40 30 / 30 Other: # Voids 6 Date of Last Bowel Movement 12/19/17 12/19/17 Results - Impressions ITS Impressions Abdomen/Pelvis CT 12/09/17 00:00 CONCLUSION: Findings of abscess related to diverticulitis superior to the dome of the bladder. This is accessible to drainage. Developing fluid collection and abscess at the root of mesentery not accessible to percutaneous drainage Findings of small bowel ileus with wall thickening characteristic of inflammatory or infectious process. Abscess Drainage CT 12/09/17 00:00 CONCLUSION: 1. Uncomplicated CT guided drainage. Abdomen X-Ray 12/11/17 00:00 CONCLUSION: Ileus. Drain overlying pelvis. Discharge Plan - Discharge Order Discharge Orders: Discharge Order (Routine); Ordered 12/20/17 Ordered By: Ferny Salgado - Discharge Details Anticipated Discharge Date: 12/20/17 Discharge Comment: dc home today with hhc/pt. remove CHRISTIAN drain. remove picc. - Physicians Team Primary Care Provider: UNKNOWN, Attending Provider: Ferny Salgado Other Providers: Tom Crystal MD ; Olayinka Mckeon MD ; [facility]
== END 2017-12-20 17:23 | disposition home health service (06) ==
LOC: NEPC 15:45 → NEDA 20:32 → N07 22:47 → NEDA 22:56
PROVIDERS: ADMIT Hospitalist; ATTEND Hospitalist